=== PATIENT | female | born 1935 | race Caucasian/White ===

== ENCOUNTER 2017-08-10 12:44 | Inpatient (IN) ==
--- NOTE | 2017-08-10 12:51 | Emergency Department Note ---
Disposition Clinical Impression: Diverticulitis Disposition: Admitted As Inpatient Condition: Fair Referrals: Isabell Dillard MD [Primary Care Provider] - Forms: ED Satisfaction Letter, Work/School Release Time of Disposition: 14:42 Abdominal Pain HPI - General Chief Complaint: ED Abdominal Pain Stated Complaint: "abdominal pain" Time Seen by Provider: 08/10/17 12:45 Source: patient, EMS Mode of arrival: EMS Limitations: no limitations Nursing Notes Reviewed: Yes Vital Signs Reviewed: Yes - History of Present Illness HPI Narrative: 81-year-old who comes in complaining of worsening abdominal pain started according to the patient earlier today. The squad relates the patient fell back on July 27 and was hospitalized here. She's had numbness of her legs since the fall. She states it seems to be getting worse. Pt Subjective Complaint: abdominal pain Onset (ago): Just [employer]IE [employer] Consistency: constant Location: diffuse Pain Severity: moderate Quality: cramping, aching Radiation: none Migration to: no migration Improves with: nothing Worsens with: nothing Associated symptoms: Reports: nausea, other (Tino frequency). Denies: fever, chills Treatments prior to arrival: none - Related Data Home Medications Medication Instructions Recorded Confirmed Acetaminophen [Tylenol] 1,000 - 1,500 mg PO BID 09/11/15 08/10/17 Cholecalciferol (Vitamin D3) 5,000 unit PO QAM 09/11/15 08/10/17 [Vitamin D3] Docusate Sodium [Colace] 100 mg PO BID PRN 09/11/15 08/10/17 Furosemide [Lasix] 40 mg PO QAM 09/11/15 08/10/17 Mesalamine [Apriso] 0.75 gm PO QAM 09/11/15 08/10/17 Omeprazole [PriLOSEC] 20 mg PO QAM 09/11/15 08/10/17 Potassium Chloride [K-Tab ER] 20 meq PO DAILY 05/31/16 08/10/17 TraZODone 50 - 100 mg PO HS 05/31/16 08/10/17 Metoprolol Succinate 25 mg PO DAILY 07/28/17 08/10/17 Previous Rx's Medication Instructions Recorded Lisinopril [Zestril] 40 mg PO DAILY tablet 06/03/16 Rivaroxaban [Xarelto] 20 mg PO 1700 #30 tablet 06/03/16 Amlodipine Besylate 10 mg PO DAILY #30 tablet 07/29/17 Hydralazine HCl 50 mg PO TID #90 tablet 07/29/17 OxyCODONE/APAP 5/325 [Percocet 1 each PO Q8HR PRN tablet 07/29/17 5/325 MG] Allergies Allergy/AdvReac Type Severity Reaction Status Date / Time ampicillin Allergy Hives Verified 08/10/17 15:19 morphine AdvReac Hallucinati Verified 08/10/17 15:19 ng All systems ED: reviewed and negative except as stated. Constitutional: Denies: fever, chills, weakness, weight change Eyes: Denies: eye pain, eye discharge, vision change ENT ED: Denies: ear pain, throat pain, dental pain, hearing loss, epistaxis, congestion, dysphagia Cardiovascular: Denies: chest pain, palpitations, dyspnea on exertion, edema, syncope Respiratory: Denies: cough, dyspnea, wheezes, hemoptysis, stridor Gastrointestinal: Reports: abdominal pain, other (Urinary frequency). Denies: nausea, vomiting, diarrhea, constipation, hematemesis, melena, hematochezia Genitourinary: Denies: dysuria, frequency, hematuria, discharge Musculoskeletal: Denies: back pain, neck pain, arthralgia, myalgia Integumentary: Denies: rash, abrasion, lesions Neurological: Denies: headache, weakness, numbness, paresthesias, confusion, abnormal gait, vertigo Psychiatric: Denies: anxiety, depression, suicidal thoughts, homicidal thoughts , auditory hallucinations, visual hallucinations Endocrine: Denies: fatigue Hematological/Lymphatic: Denies: easy bleeding, easy bruising Allergic/Immunologic: Denies: facial swelling, urticaria Abdominal Pain PMH - Past Medical History Medical history: Reports: atrial fibrillation, diabetes, GERD, hypertension, other Female Surgical History: Reports: appendectomy, hysterectomy, Tonsillectomy Psychiatric history: Reports: anxiety - Social History Smoking status: Former smoker Alcohol use: Reports: none Drug use: Reports: none Physical Exam - General Limitations: no limitations General appearance: alert, in no apparent distress - Head Head exam: atraumatic, normocephalic, normal inspection - Eye Eye exam: Present: normal appearance, PERRL, EOMI - ENT ENT exam: normal exam, normal oropharynx, mucous membranes moist - Neck Neck exam: Present: normal inspection, full ROM, trachea midline - Chest Chest inspection: Present: normal inspection, symmetric chest wall rise - Respiratory Respiratory exam: Present: normal lung sounds bilaterally - Cardiovascular Cardiovascular exam: Present: regular rate, normal rhythm, normal heart sounds - Abdominal Exam Abdominal exam: Present: soft, tenderness. Absent: distention, guarding, rebound, rigidity - Extremities Exam Extremities exam: Present: normal inspection, full ROM. Absent: tenderness, pedal edema - Expanded Lower Extremity Exam Neurovascular/Tendon exam: Absent: motor deficit, sensory deficit, tendon deficit Gait: not tested/not observed - Back Exam Back exam: Present: normal inspection, full ROM. Absent: tenderness - Neurological Exam Neurological exam: Present: alert, oriented X3 - Psychiatric Psychiatric exam: Present: normal affect, normal mood - Skin Skin exam: Present: warm, dry, intact, normal color Course - Reevaluation(s) Reevaluation #1: 81-year-old who comes in complaining of abdominal pain. She is tender in the abdomen without guarding or rebound. CT scan does show acute diverticulitis. Time: 15:36 - Consultations Consultation #1: Discussed with Dr. San, admit. Time: 15:36 Vital Signs Temperature 97.6 F 08/10/17 12:46 Pulse Rate 97 08/10/17 12:46 Respiratory Rate 20 08/10/17 12:46 Blood Pressure 138/102 08/10/17 12:46 O2 Sat by Pulse Oximetry 96 08/10/17 12:46 Temperature 97.6 F 08/10/17 12:46 Pulse Rate 86 08/10/17 13:45 Respiratory Rate 18 08/10/17 13:45 Blood Pressure 158/91 08/10/17 13:45 O2 Sat by Pulse Oximetry 95 08/10/17 13:45 Oxygen Delivery Oxygen Delivery Room Air Abdominal Pain - Lab Data Lab results reviewed: Yes I reviewed the patient's lab results. Result diagrams: 08/10/17 13:58 08/10/17 13:58 Lab Results 08/10/17 08/10/17 08/10/17 Range/Units 12:54 13:58 13:58 WBC 10.6 (4.3-11.1) K/mcL RBC 3.97 (3.82-4.97) M/mcL Hgb 12.0 (11.5-15.4) g/dL Hct 37.2 (35.3-44.9) % MCV 93.7 (83.0-100.0) fL MCH 30.2 (28.0-33.3) pg MCHC 32.3 (31.6-35.5) g/dL RDW 14.1 (11.5-14.5) % Plt Count 322 (140-400) K/mcL MPV 9.5 (9.4-12.4) fL Immature Gran % 0.4 (0-4) % Seg Neutrophils % 81.0 % Lymphocytes % 11.4 % Monocytes % 6.5 % Eosinophils % 0.1 % Basophils % 0.6 % Neutrophils # 8.6 (1.6-8.9) K/mcL Lymphocytes # 1.2 (0.6-4.6) K/mcL Monocytes # 0.7 (0.0-1.3) K/mcL Eosinophils # 0.0 (0.0-0.6) K/mcL Basophils # 0.1 (0.0-0.2) K/mcL Sodium 140 (136-145) mEq/L Potassium 3.8 (3.5-4.5) mEq/L Chloride 104 (98-109) mEq/L Carbon Dioxide 23 (19-29) mEq/L BUN 21 H (7-20) mg/dL Creatinine 1.28 H (0.57-1.11) mg/dL Est GFR ( Amer) 49 L (> 60) Est GFR (Non-Af Amer) 40 L (> 60) BUN/Creatinine Ratio 16 (6-26) Glucose 139 H (70-99) mg/dL Calculated Osmolality 295 (280-300) Lactic Acid (0.5-2.2) mmol/L Calcium 9.7 (8.6-10.8) mg/dL Total Bilirubin 0.8 (0.2-1.2) mg/dL Direct Bilirubin 0.3 (0.0-0.5) mg/dL Indirect Bilirubin 0.5 (0.0-1.2) mg/dL AST 16 (5-34) Units/L ALT 9 (0-55) Units/L Alkaline Phosphatase 76 (38-126) Units/L Troponin I (0-0.03) ng/mL Serum Total Protein 8.1 (6.0-8.3) g/dL Albumin 3.7 (3.5-5.0) g/dL Globulin 4.4 H (2.4-3.5) g/dL Albumin/Globulin Ratio 0.8 L (1.1-2.2) Amylase 74 (25-125) Units/L Lipase 71 (8-78) Units/L Urine Color Yellow (Yellow) Urine Clarity Clear (Clear) Urine pH 6.5 (5.0-8.0) pH Units Ur Specific [place] 1.013 (1.010-1.025) Urine Protein 30 H (Neg-Trace) mg/dL Urine Glucose (UA) Normal (Normal) mg/dL Urine Ketones Negative (Negative) mg/dL Urine Blood Negative (Negative) Urine Nitrite Negative (Negative) Urine Bilirubin Negative (Negative) Urine Urobilinogen Normal (Normal) mg/dL Ur Leukocyte Esterase Negative (Negative) Urine Microscopic RBC 0-3 (0-3) per hpf Urine Microscopic WBC 0-3 (0-3) per hpf Ur Squamous Epith Cells Many H (None-Few) per lpf Urine Bacteria None Seen (None-Few) per hpf Hyaline Casts None Seen (None-Few) per lpf Ur Culture Indicated? NO (NO) 08/10/17 08/10/17 Range/Units 13:58 13:58 WBC (4.3-11.1) K/mcL RBC (3.82-4.97) M/mcL Hgb (11.5-15.4) g/dL Hct (35.3-44.9) % MCV (83.0-100.0) fL MCH (28.0-33.3) pg MCHC (31.6-35.5) g/dL RDW (11.5-14.5) % Plt Count (140-400) K/mcL MPV (9.4-12.4) fL Immature Gran % (0-4) % Seg Neutrophils % % Lymphocytes % % Monocytes % % Eosinophils % % Basophils % % Neutrophils # (1.6-8.9) K/mcL Lymphocytes # (0.6-4.6) K/mcL Monocytes # (0.0-1.3) K/mcL Eosinophils # (0.0-0.6) K/mcL Basophils # (0.0-0.2) K/mcL Sodium (136-145) mEq/L Potassium (3.5-4.5) mEq/L Chloride (98-109) mEq/L Carbon Dioxide (19-29) mEq/L BUN (7-20) mg/dL Creatinine (0.57-1.11) mg/dL Est GFR ( Amer) (> 60) Est GFR (Non-Af Amer) (> 60) BUN/Creatinine Ratio (6-26) Glucose (70-99) mg/dL Calculated Osmolality (280-300) Lactic Acid 1.9 (0.5-2.2) mmol/L Calcium (8.6-10.8) mg/dL Total Bilirubin (0.2-1.2) mg/dL Direct Bilirubin (0.0-0.5) mg/dL Indirect Bilirubin (0.0-1.2) mg/dL AST (5-34) Units/L ALT (0-55) Units/L Alkaline Phosphatase (38-126) Units/L Troponin I 0.02 (0-0.03) ng/mL Serum Total Protein (6.0-8.3) g/dL Albumin (3.5-5.0) g/dL Globulin (2.4-3.5) g/dL Albumin/Globulin Ratio (1.1-2.2) Amylase (25-125) Units/L Lipase (8-78) Units/L Urine Color (Yellow) Urine Clarity (Clear) Urine pH (5.0-8.0) pH Units Ur Specific [place] (1.010-1.025) Urine Protein (Neg-Trace) mg/dL Urine Glucose (UA) (Normal) mg/dL Urine Ketones (Negative) mg/dL Urine Blood (Negative) Urine Nitrite (Negative) Urine Bilirubin (Negative) Urine Urobilinogen (Normal) mg/dL Ur Leukocyte Esterase (Negative) Urine Microscopic RBC (0-3) per hpf Urine Microscopic WBC (0-3) per hpf Ur Squamous Epith Cells (None-Few) per lpf Urine Bacteria (None-Few) per hpf Hyaline Casts (None-Few) per lpf Ur Culture Indicated? (NO) - Radiology Data Radiology results reviewed: Yes I reviewed the patient's radiology results. Abdomen/Pelvis CT 08/10/17 12:46 IMPRESSION: 1. Acute diverticulitis in the distal sigmoid colon. Severe inflammation, but no evidence of perforation or abscess. 2. Complex cystic lesion stable at the lower pole of the left kidney. Correlation with prior urology workup is recommended. 3. Partial visualization of a pulmonary nodule in the right middle lobe stable since 2016. Correlate with prior pulmonary workup. 4. Large hiatal hernia. D/ / Keaton Mckee MD / Keaton Mckee MD Interpreting Provider: Keaton Mckee MD - EKG Data EKG attestation: Yes I reviewed and interpreted this EKG. Rate: normal Rhythm: A.Fib When compared to previous EKG there are: no significant changes (07/27/2017) Interpretation: no acute changes
[2017-08-10 13:01] LABS: Bilirubin,Urine Negative (Negative); Blood,Urine Negative (Negative); Clarity,Urine Clear (Clear); Color,Urine Yellow (Yellow); Glucose,Urine (UA) Normal (Normal); Ketones,Urine Negative (Negative); Leukocyte Esterase,Urine Negative (Negative); Nitrite,Urine Negative (Negative); PH,Urine 6.5 pH Units (5.0-8.0); Protein,Urine 30 mg/dL (Neg-Trace); Specific Gravity,Urine 1.013 (1.010-1.025); Urobilinogen,Urine Normal (Normal)
[2017-08-10 13:04] LABS: Bacteria,Urine None Seen per hpf (None-Few); Hyaline Casts,Urine None Seen per lpf (None-Few); RBC,Urine 0-3 per hpf (0-3); Squamous Epithelial Cell,Urine Many per lpf (None-Few); WBC,Urine 0-3 per hpf (0-3)
[2017-08-10 14:11] LABS: Basophils # 0.1 K/mcL (0.0-0.2); Basophils % 0.6 %; Eosinophils % 0.1 %; Hematocrit 37.2 % (35.3-44.9); Immature Granulocytes % 0.4 % (0-4); Lymphocytes # 1.2 K/mcL (0.6-4.6); Lymphocytes % 11.4 %; Mean Corpuscular HGB Conc 32.3 g/dL (31.6-35.5); Mean Corpuscular Hemoglobin 30.2 pg (28.0-33.3); Mean Corpuscular Volume 93.7 fL (83.0-100.0); Mean Platelet Volume 9.5 fL (9.4-12.4); Monocytes # 0.7 K/mcL (0.0-1.3); Monocytes % 6.5 %; Neutrophils # 8.6 K/mcL (1.6-8.9); Platelet Count 322 K/mcL (140-400); Red Blood Count 3.97 M/mcL (3.82-4.97); Red Cell Distribution Width 14.1 % (11.5-14.5)
[2017-08-10 14:25] LABS: Albumin 3.7 g/dL (3.5-5.0); Albumin/Globulin Ratio 0.8 (1.1-2.2); Bilirubin,Direct 0.3 mg/dL (0.0-0.5); Bilirubin,Indirect 0.5 mg/dL (0.0-1.2); Bilirubin,Total 0.8 mg/dL (0.2-1.2); Calcium 9.7 mg/dL (8.6-10.8); Globulin 4.4 g/dL (2.4-3.5); Potassium 3.8 mEq/L (3.5-4.5); Total Protein 8.1 g/dL (6.0-8.3)
[2017-08-10] MEDS ORDERED: MetroNIDAZOLE 500 MG/100 ML 500 MG/100 ML BAG IVPB ONE (14:42)
[2017-08-10] MEDS ORDERED: *HR* Rivaroxaban 10 MG TABLET PO SCH (17:00)
[2017-08-10] MEDS ORDERED: Naloxone 0.4 MG/ML INJ IVP PRN (19:04)
[2017-08-10] MEDS ORDERED: Ondansetron 4 MG/2 ML VIAL IVP PRN (19:04)
[2017-08-10] MEDS ORDERED: *HR* OxyCODONE/APAP 5/325 TABLET PO PRN (19:10)
--- NOTE | 2017-08-10 19:18 | Internal Med History&Physical ---
<Aman Garcia - Last Filed: 08/10/17 22:12> Date of Encounter: 08/10/17 Time of Encounter: 19:16 Assessment and Plan (1) Diverticulitis Current visit: Yes Status: Acute Continues to have abdominal pain. She does not appear toxic and does not appear to have an acute abdomen to examination. CT abdomen and pelvis reveals acute diverticulitis of distal sigmoid colon without evidence of abscess or perforation. Start antibiotic therapy; Flagyl and ciprofloxacin 0.9% NS at 100ml/hr x2 liters Will give Percocet for pain management Check CBC, CMP in the morning (2) Ulcerative colitis Current visit: Yes Status: Chronic Qualifiers: Ulcerative colitis location: unspecified ulcerative colitis location Digestive disease complication type: unspecified complication Qualified Code(s ): K51.919 - Ulcerative colitis, unspecified with unspecified complications (3) HTN (hypertension) Current visit: Yes Status: Chronic Remains hypertensive with blood pressure in the 150s. Restart beta susie and CORY inhibitor. Continue to monitor, and IV metoprolol 5 mg for sustained SBP greater than 160 hold for HR < 75 Qualifiers: Hypertension type: essential hypertension Qualified Code(s): I10 - Essential (primary) hypertension (4) Diabetes Current visit: Yes Status: Chronic Low sliding Scale insulin coverage with AH/HS Accu-Cheks and diabetic/cardiac diet Qualifiers: Diabetes mellitus type: type 2 Diabetes mellitus complication status: with kidney complications Diabetes mellitus complication detail: with chronic kidney disease Diabetes mellitus senior living insulin use: without senior living use Chronic kidney disease stage: stage 3 (moderate) Qualified Code(s): E11.22 - Type 2 diabetes mellitus with diabetic chronic kidney disease; N18.3 - Chronic kidney disease, stage 3 (moderate); N18.3 - Chronic kidney disease, stage 3 (moderate) (5) Atrial fibrillation Current visit: Yes Status: Acute Continue Xarelto and beta susie. Remains in atrial fibrillation per EKG, hemodynamically stable and in no distress. Qualifiers: Atrial fibrillation type: unspecified Qualified Code(s): I48.91 - Unspecified atrial fibrillation (6) DVT prophylaxis Current visit: Yes Status: Acute On Xarelto, start EPCD's while in bed. Internal Medicine - H&P: HPI Chief complaint: Abdominal pain Admitted From: Home Plans for Post Hospital Care: Home History of present illness: Ms. Beltran is a 81 year old female with a PMH of A. fib, DM, GERD, HTN. No prior history of diverticulitis or diverticulosis. Presents today with left lower quadrant abdominal pain which began this morning. She reports the pain this morning was tolerable but his progress as the day has gone on. She denies any fever but admits to chills. Denies chest pain, shortness of breath, cough melena, hematochezia. Admits to nausea but no vomiting and constipation. Last bowel movement was approximately [address] of abdomen and pelvis obtained while in ED and found acute diverticulitis and distal sigmoid colon with severe inflammation but no evidence of perforation or abscess. Past Med Surg Social Fam HX - Past Medical History Medical history: atrial fibrillation, diabetes, GERD, hypertension, other Psychiatric history: anxiety - Past Surgical History Surgical History: appendectomy, hysterectomy, ALAN/BSO - Social History Smoking Status: Former smoker Smokeless Tobacco Status: No Alcohol use: none Drug use: none - Family History Mother Living Status: Hx Family Cardiac Disorders: Yes Hx Family Respiratory Disorders: No Hx Family Cancer: No Hx Family GI Disorders: No Hx Family Endocrine Disorder: Yes Hx Family Neuromuscular Disorders: No Hx Family Neurologic Disorders: No Hx Family HEENT Disorders: No Hx Family Autoimmune Disorders: No Father Living Status: Hx Family Cardiac Disorders: Yes Hx Family Respiratory Disorders: No Hx Family Cancer: No Hx Family GI Disorders: No Hx Family Endocrine Disorder: No Hx Family Neuromuscular Disorders: No Hx Family Neurologic Disorders: No Hx Family HEENT Disorders: No Hx Family Autoimmune Disorders: No Internal Medicine - H&P: Meds Acetaminophen [Tylenol] 1,000 - 1,500 mg PO BID 09/11/15 [History] Cholecalciferol (Vitamin D3) [Vitamin D3] 5,000 unit PO QAM 09/11/15 [History] Docusate Sodium [Colace] 100 mg PO BID PRN 09/11/15 [History] Furosemide [Lasix] 40 mg PO QAM 09/11/15 [History] Mesalamine [Apriso] 0.75 gm PO QAM 09/11/15 [History] Omeprazole [PriLOSEC] 20 mg PO QAM 09/11/15 [History] Potassium Chloride [K-Tab ER] 20 meq PO DAILY 05/31/16 [History] TraZODone 50 - 100 mg PO HS 05/31/16 [History] Lisinopril [Zestril] 40 mg PO DAILY tablet 06/03/16 [Rx] Rivaroxaban [Xarelto] 20 mg PO 1700 #30 tablet 06/03/16 [Rx] Metoprolol Succinate 25 mg PO DAILY 07/28/17 [History] Amlodipine Besylate 10 mg PO DAILY #30 tablet 07/29/17 [Rx] Hydralazine HCl 50 mg PO TID #90 tablet 07/29/17 [Rx] OxyCODONE/APAP 5/325 [Percocet 5/325 MG] 1 each PO Q8HR PRN tablet 07/29/17 [Rx ] 3 Allergy/AdvReac Type Severity Reaction Status Date / Time ampicillin Allergy Hives Verified 08/10/17 15:19 morphine AdvReac Hallucinati Verified 08/10/17 15:19 ng All Systems PM: A 10-system review of systems was performed and is negative for pertinent findings except as documented above in the HPI. - Constitutional Constitutional: no chills, no fever(s), no night sweats - EENT Eyes: no change in vision, no discharge, no pain, no photophobia Ears: no ear discharge, no ear pain, no tinnitus Nose, mouth and throat: no dysphagia, no nasal discharge, no neck pain, no sore throat - Cardiovascular Cardiovascular ROS IM: no chest pain, no diaphoresis, no dyspnea, no lightheadedness, no palpitations, no syncope - Respiratory Respiratory: no cough, no dyspnea, no wheezing, no excessive phlegm production - Gastrointestinal Gastrointestinal: abdominal pain, constipation, no diarrhea, no hematemesis, no hematochezia, no melena, no nausea, no vomiting - Genitourinary Genitourinary: no change in urinary stream, no dysuria, no flank pain, no hematuria - Musculoskeletal Musculoskeletal ROS IM: no numbness, no tingling - Integumentary Integumentary IM: no rash, no unusual bruising - Neurological Neurological ROS: no confusion, no convulsions, no focal weakness, no numbness, no tingling, no tremor(s) - Hematologic/Lymphatic Hematologic/Lymphatic: no easy bruising - Constitutional Vitals: Temp Pulse Resp BP Pulse Ox 97.6 F 76 15 159/88 96 08/10/17 12:46 08/10/17 17:00 08/10/17 17:26 08/10/17 17:26 08/10/17 17:00 General appearance: Present: cooperative, A&O X 3, no acute distress, answers questions appropriately - Head Head exam: Present: atraumatic, normocephalic - Eye Eye exam: Present: PERRL, conjuntiva pink, sclera anicteric Pupils: Present: PERRL - Neck Neck exam general surgery: Present: supple, trachea midline. Absent: lymphadenopathy - Respiratory Respiratory exam: Present: CTAB. Absent: accessory muscle use, rales, rhonchi, wheezes - Cardiovascular Cardiovascular exam: Present: RRR, +S1, +S2. Absent: diastolic murmur, gallop, rubs, systolic murmur - GI/Abdominal GI/Abdominal exam: Present: hypoactive bowel sounds, normal bowel sounds, soft, tenderness (LLQ), no peritoneal signs. Absent: distended, firm, guarding, mass , rebound - Extremities Exam Extremities exam: Present: warm, radial pulses palpable and symmetrical. Absent : calf tenderness, cyanotic, pedal edema - Neurological Exam Neurological exam: Present: CN II-XII intact, oriented X3, no focal deficits. Absent: pronater drift, facial droop, speech deficit - Skin Skin exam: Present: dry, intact Internal Med - H&P Results - Labs CBC & Chem 7: 08/10/17 13:58 08/10/17 13:58 - EKG Data -: EKG Interpreted by Myself - EKG Data Prior EKG available for review: yes When compared to previous EKG: there is no significant change EKG comments: Atrial fibrillationsignificant changes from prior EKG rate control. 08/10/17 19:20 - Diagnostic Studies CT scan - abdomen Status: image reviewed by me Additional comments: CT of abdomen and pelvis reveals acute diverticulitis and distal sigmoid colon with severe inflammation. However there is no evidence of perforation or abscess. Also note there is a complex cystic lesion that is stable at the lower pole of left kidney <Darrel Oneill - Last Filed: 08/11/17 01:55> Date of Encounter: 08/11/17 Internal Medicine - H&P: HPI History of present illness: Ms. Beltran is a 81 year old female All Systems PM: A 10-system review of systems was performed and is negative for pertinent findings except as documented above in the HPI. - Constitutional Vitals: Temp Pulse Resp BP Pulse Ox 98.1 F 75 14 108/66 92 08/10/17 23:52 08/10/17 23:52 08/10/17 23:52 08/10/17 23:52 08/10/17 23:52 Internal Med - H&P Results - Labs CBC & Chem 7: 08/10/17 13:58 08/10/17 13:58 - Attending Attestation I have personally performed a face to face evaluation on this patient. I have reviewed and agree with the care plan provided by MANUFACTURING COORDINATOR Aman Garcia. History and Exam by me shows: Ms. Beltran is a 81 year old female with a PMH of A. fib, DM, GERD, HTN presented to ER today with left lower quadrant abdominal pain. Admits to nausea but no vomiting and constipation. Last bowel movement was approximately [address] of abdomen and pelvis in the ED showed acute diverticulitis and distal sigmoid colon with severe inflammation but no evidence of perforation or abscess. Pt stated she is feeling little better now Gen: A, A, O x 3 Abd: Soft, Mild discomfort LLQ region.. No guarding / no peritoneal signs a/p 1. Acute sigmoid diverticulitis clear liquid diet IV hydration empirical abx Cipro and Flagyl
[2017-08-10] MEDS ORDERED: *HR* Metoprolol 5 MG/5 ML VIAL IVP PRN (19:23)
[2017-08-10] MEDS ORDERED: Dextrose Gel 15 GM PO PRN ×2 (19:25)
[2017-08-10] MEDS ORDERED: D5% in Water 1,000 ML IVC PRN (19:25)
[2017-08-10] MEDS ORDERED: *HR* Dextrose 50 % in Water (Syg) 50 ML SYRINGE IVP PRN (19:25)
[2017-08-10] MEDS: Insulin LISPRO 300 UNITS/3 ML VIAL SQ SCH (22:06)
[2017-08-10] MEDS: hydrALAZINE 25 MG TABLET PO SCH (22:10)
[2017-08-10] MEDS: traZODone 50 MG TABLET PO SCH (22:10)
[2017-08-10] MEDS: 0.9 % Sodium Chloride 1,000 ML IVC SCH (22:11)
[2017-08-11] MEDS: MetroNIDAZOLE 500 MG/100 ML 500 MG/100 ML BAG IVPB SCH ×3 (00:38→15:03)
[2017-08-11 05:44] LABS: Basophils # 0.1 K/mcL (0.0-0.2); Basophils % 0.8 %; Eosinophils # 0.1 K/mcL (0.0-0.6); Eosinophils % 1.4 %; Hematocrit 31.3 % (35.3-44.9); Immature Granulocytes % 0.5 % (0-4); Lymphocytes # 0.8 K/mcL (0.6-4.6); Lymphocytes % 11.9 %; Mean Corpuscular HGB Conc 31.6 g/dL (31.6-35.5); Mean Corpuscular Hemoglobin 30.5 pg (28.0-33.3); Mean Corpuscular Volume 96.3 fL (83.0-100.0); Mean Platelet Volume 9.6 fL (9.4-12.4); Monocytes # 0.7 K/mcL (0.0-1.3); Monocytes % 10.1 %; Platelet Count 271 K/mcL (140-400); Red Blood Count 3.25 M/mcL (3.82-4.97); Segmented Neutrophils % 75.3 %
[2017-08-11 05:47] LABS: Hemoglobin 9.9 g/dL (11.5-15.4)
[2017-08-11 05:57] LABS: Calcium 8.7 mg/dL (8.6-10.8); Potassium 3.5 mEq/L (3.5-4.5)
[2017-08-11] MEDS: Insulin LISPRO 300 UNITS/3 ML VIAL SQ SCH ×4 (08:24→20:17)
[2017-08-11] MEDS: MESALAMINE 0.75 GM PO SCH (08:25)
[2017-08-11] MEDS: Lisinopril 20 MG TABLET PO SCH (08:25)
[2017-08-11] MEDS: hydrALAZINE 25 MG TABLET PO SCH ×3 (08:25→20:14)
[2017-08-11] MEDS: amLODIPine 5 MG TABLET PO SCH (08:25)
[2017-08-11] MEDS: Metoprolol XL (24 HR) Succ 25 MG TAB.ER.24H PO SCH (08:25)
[2017-08-11] MEDS ORDERED: Furosemide 40 MG TABLET PO SCH (09:00)
--- NOTE | 2017-08-11 09:23 | Internal Med Progress Note ---
Date of Encounter: 08/11/17 Time of Encounter: 09:21 - Assessment and plan (1) Diverticulitis Current Visit: Yes Status: Acute Assessment and plan: Patient presented with left lower quadrant abdominal pain. CT abdomen/pelvis showed sigmoid diverticulitis. Continue empiric IV antibiotics-ciprofloxacin and Flagyl. Reports worsening abdominal pain with clear liquid diet. Keep nothing by mouth for now. Continue IV hydration, supportive care with when necessary antiemetics and pain control with IV morphine. (2) CKD (chronic kidney disease) Current Visit: Yes Status: Chronic Assessment and plan: Serum creatinine noted to be around baseline. Continue to monitor closely. Qualifiers: Chronic kidney disease stage: stage 3 (moderate) Qualified Code(s): N18.3 - Chronic kidney disease, stage 3 (moderate) (3) HTN (hypertension) Current Visit: Yes Status: Chronic Assessment and plan: Blood pressure well controlled. Continue home medications. Qualifiers: Hypertension type: essential hypertension Qualified Code(s): I10 - Essential (primary) hypertension (4) Diabetes Current Visit: Yes Status: Chronic Assessment and plan: Blood sugars noted to be well controlled. Continue Accu-Chek blood glucose monitoring with sliding scale insulin as needed. Qualifiers: Diabetes mellitus type: type 2 Diabetes mellitus complication status: with kidney complications Diabetes mellitus complication detail: with chronic kidney disease Diabetes mellitus local company intermodal truck driver insulin use: without local company intermodal truck driver use Chronic kidney disease stage: stage 3 (moderate) Qualified Code(s): E11.22 - Type 2 diabetes mellitus with diabetic chronic kidney disease; N18.3 - Chronic kidney disease, stage 3 (moderate); N18.3 - Chronic kidney disease, stage 3 (moderate) (5) Ulcerative colitis Current Visit: Yes Status: Chronic Qualifiers: Ulcerative colitis location: unspecified ulcerative colitis location Digestive disease complication type: unspecified complication Qualified Code(s ): K51.919 - Ulcerative colitis, unspecified with unspecified complications (6) Atrial fibrillation Current Visit: Yes Status: Chronic Assessment and plan: Currently rate controlled. Continue telemetry monitoring. Noted to be on long-term anticoagulation with Xarelto, continue. Qualifiers: Atrial fibrillation type: paroxysmal Qualified Code(s): I48.0 - Paroxysmal atrial fibrillation - Subjective Interval history: Improved abdominal pain, but pain is now back as she tried to have clear broth, associated with nausea; no vomiting; has not had a bowel movement since 5 days; no fever/chills, has left lower abdominal pain, nonradiating; - Constitutional Vitals: Temp Pulse Resp BP Pulse Ox 97.8 F 65 16 145/71 93 08/11/17 08:08 08/11/17 08:08 08/11/17 08:08 08/11/17 08:08 08/11/17 08:08 General appearance: Present: cooperative, A&O X 3, no acute distress, answers questions appropriately - Respiratory Respiratory exam: Present: CTAB. Absent: accessory muscle use, rales, rhonchi, wheezes - Cardiovascular Cardiovascular exam: Present: irregular rhythm, +S1, +S2. Absent: diastolic murmur, gallop, rubs, systolic murmur - GI/Abdominal GI/Abdominal exam: Present: normal bowel sounds, soft (tenderness in LLQ), no peritoneal signs. Absent: distended, tenderness - Extremities Exam Extremities exam: Present: warm, radial pulses palpable and symmetrical. Absent : calf tenderness, cyanotic, pedal edema - Neurological Exam Neurological exam: Present: CN II-XII intact, oriented X3, no focal deficits. Absent: pronater drift, facial droop, speech deficit Internal Medicine: Result - Labs CBC & Chem 7: 08/11/17 05:01 08/11/17 05:01 Labs: Short CBC 08/11/17 Range/Units 05:01 WBC 6.6 (4.3-11.1) K/mcL Hgb 9.9 L D (11.5-15.4) g/dL Hct 31.3 L (35.3-44.9) % Plt Count 271 (140-400) K/mcL Neutrophils # 5.0 (1.6-8.9) K/mcL BMP 08/11/17 05:01 Sodium 141 Potassium 3.5 Chloride 107 Carbon Dioxide 23 BUN 20 Creatinine 1.21 H Glucose 128 H Calcium 8.7 - VTE Documentation of Mechanical Device: Intermittent pneumatic compression device Consult Discharge Plan - Plan Referrals: Isabell Dillard MD [Primary Care Provider] -
[2017-08-11] MEDS: 0.9 % Sodium Chloride 1,000 ML IVC SCH ×2 (10:55→14:46)
--- NOTE | 2017-08-11 17:13 | Electrocardiograph Report ---
[place] [id number] Test Date: 2017-08-10 Pat Name: Jaye Beltran Department: 103 Room: 3A31 Gender: F Outreach Coordinator: SHAWANDA : 1935 Requested By: Alpesh Jose Order Number: [id number] Reading MD: Jessica Hernandez Measurements Intervals [place] Rate: 96 P: DE: 0 QRS: 23 QRSD: 74 T: -20 QT: 365 QTc: 419 Interpretive Statements ATRIAL FIBRILLATION POSSIBLE RIGHT VENTRICULAR CONDUCTION DELAY [RSR (QR) IN V1/V2] NONSPECIFIC ST & T-WAVE ABNORMALITY ABNORMAL RHYTHM ECG ARTIFACT Electronically Signed On 08-11-2017 17:12:08 EST by Jessica Hernandez
[2017-08-11] MEDS: *HR* Rivaroxaban 15 MG TABLET PO SCH (17:15)
[2017-08-11] MEDS: traZODone 50 MG TABLET PO SCH (20:14)
[2017-08-12 04:41] LABS: Basophils # 0.1 K/mcL (0.0-0.2); Basophils % 1.7 %; Eosinophils # 0.2 K/mcL (0.0-0.6); Eosinophils % 3.1 %; Hematocrit 33.3 % (35.3-44.9); Hemoglobin 10.5 g/dL (11.5-15.4); Immature Granulocytes % 0.4 % (0-4); Lymphocytes # 1.1 K/mcL (0.6-4.6); Lymphocytes % 20.1 %; Mean Corpuscular HGB Conc 31.5 g/dL (31.6-35.5); Mean Corpuscular Hemoglobin 30.1 pg (28.0-33.3); Mean Corpuscular Volume 95.4 fL (83.0-100.0); Mean Platelet Volume 9.4 fL (9.4-12.4); Monocytes # 0.5 K/mcL (0.0-1.3); Monocytes % 9.6 %; Neutrophils # 3.4 K/mcL (1.6-8.9); Platelet Count 279 K/mcL (140-400); Red Blood Count 3.49 M/mcL (3.82-4.97); Red Cell Distribution Width 13.9 % (11.5-14.5); Segmented Neutrophils % 65.1 %
[2017-08-12 04:55] LABS: Calcium 9.1 mg/dL (8.6-10.8)
[2017-08-12] MEDS: Metoprolol XL (24 HR) Succ 25 MG TAB.ER.24H PO SCH (08:59)
[2017-08-12] MEDS: amLODIPine 5 MG TABLET PO SCH (09:00)
[2017-08-12] MEDS: Lisinopril 20 MG TABLET PO SCH (09:00)
[2017-08-12] MEDS: MetroNIDAZOLE 500 MG/100 ML 500 MG/100 ML BAG IVPB SCH ×3 (09:01→15:38)
[2017-08-12] MEDS: Insulin LISPRO 300 UNITS/3 ML VIAL SQ SCH ×4 (09:03→20:08)
[2017-08-12] MEDS: hydrALAZINE 25 MG TABLET PO SCH ×3 (09:03→20:08)
--- NOTE | 2017-08-12 12:44 | Internal Med Progress Note ---
Date of Encounter: 08/12/17 Time of Encounter: 12:43 - Assessment and plan (1) Diverticulitis Current Visit: Yes Status: Acute Assessment and plan: Patient presented with left lower quadrant abdominal pain. CT abdomen/pelvis showed sigmoid diverticulitis. Continue empiric IV antibiotics-ciprofloxacin and Flagyl. Improving. Advance diet as tolerated. Continue IV hydration, supportive care with when necessary antiemetics and pain control with IV morphine. (2) CKD (chronic kidney disease) Current Visit: Yes Status: Chronic Assessment and plan: Serum creatinine noted to be around baseline. Continue to monitor closely. Qualifiers: Chronic kidney disease stage: stage 3 (moderate) Qualified Code(s): N18.3 - Chronic kidney disease, stage 3 (moderate) (3) HTN (hypertension) Current Visit: Yes Status: Chronic Assessment and plan: Blood pressure well controlled. Continue home medications. Qualifiers: Hypertension type: essential hypertension Qualified Code(s): I10 - Essential (primary) hypertension (4) Diabetes Current Visit: Yes Status: Chronic Assessment and plan: Blood sugars noted to be well controlled. Continue Accu-Chek blood glucose monitoring with sliding scale insulin as needed. Qualifiers: Diabetes mellitus type: type 2 Diabetes mellitus complication status: with kidney complications Diabetes mellitus complication detail: with chronic kidney disease Diabetes mellitus penitentiary insulin use: without ferry terminal agent use Chronic kidney disease stage: stage 3 (moderate) Qualified Code(s): E11.22 - Type 2 diabetes mellitus with diabetic chronic kidney disease; N18.3 - Chronic kidney disease, stage 3 (moderate); N18.3 - Chronic kidney disease, stage 3 (moderate) (5) Ulcerative colitis Current Visit: Yes Status: Chronic Qualifiers: Ulcerative colitis location: unspecified ulcerative colitis location Digestive disease complication type: unspecified complication Qualified Code(s ): K51.919 - Ulcerative colitis, unspecified with unspecified complications (6) Atrial fibrillation Current Visit: Yes Status: Chronic Assessment and plan: Currently rate controlled. Continue telemetry monitoring. Noted to be on ferry terminal agent anticoagulation with Xarelto, continue. Qualifiers: Atrial fibrillation type: paroxysmal Qualified Code(s): I48.0 - Paroxysmal atrial fibrillation - Subjective Interval history: Feels better; improved abdominal pain, tolerates clear liquids; no nausea, vomiting; no bowel movements yet; - Constitutional Vitals: Temp Pulse Resp BP Pulse Ox 97.9 F 67 15 129/71 95 12/16/17 10:50 08/12/17 11:23 08/12/17 11:23 08/12/17 11:23 08/12/17 11:23 General appearance: Present: cooperative, A&O X 3, no acute distress, answers questions appropriately - Respiratory Respiratory exam: Present: CTAB. Absent: accessory muscle use, rales, rhonchi, wheezes - Cardiovascular Cardiovascular exam: Present: irregular rhythm, +S1, +S2. Absent: diastolic murmur, gallop, rubs, systolic murmur - GI/Abdominal GI/Abdominal exam: Present: normal bowel sounds, soft, no peritoneal signs. Absent: distended, tenderness Internal Medicine: Result - Labs CBC & Chem 7: 08/12/17 04:29 08/12/17 04:29 Labs: Short CBC 08/12/17 Range/Units 04:29 WBC 5.2 (4.3-11.1) K/mcL Hgb 10.5 L (11.5-15.4) g/dL Hct 33.3 L (35.3-44.9) % Plt Count 279 (140-400) K/mcL Neutrophils # 3.4 (1.6-8.9) K/mcL BMP 08/12/17 04:29 Sodium 140 Potassium 4.0 Chloride 108 Carbon Dioxide 20 BUN 19 Creatinine 1.16 H Glucose 118 H Calcium 9.1 - VTE Documentation of Mechanical Device: Intermittent pneumatic compression device Consult Discharge Plan - Plan Referrals: Isabell Dillard MD [Primary Care Provider] -
[2017-08-12] MEDS: MESALAMINE 0.75 GM PO SCH (14:01)
[2017-08-12] MEDS: *HR* Rivaroxaban 15 MG TABLET PO SCH (18:43)
[2017-08-12] MEDS: traZODone 50 MG TABLET PO SCH (20:08)
[2017-08-13] MEDS: MetroNIDAZOLE 500 MG/100 ML 500 MG/100 ML BAG IVPB SCH ×2 (01:28→08:43)
[2017-08-13] MEDS: Lisinopril 20 MG TABLET PO SCH (08:42)
[2017-08-13] MEDS: MESALAMINE 0.75 GM PO SCH (08:43)
[2017-08-13] MEDS: amLODIPine 5 MG TABLET PO SCH (08:43)
[2017-08-13] MEDS: Metoprolol XL (24 HR) Succ 25 MG TAB.ER.24H PO SCH (08:43)
[2017-08-13] MEDS: hydrALAZINE 25 MG TABLET PO SCH (08:43)
[2017-08-13] MEDS: Insulin LISPRO 300 UNITS/3 ML VIAL SQ SCH (08:44)
[2017-08-13 11:56] VITALS: BP 128/78
--- NOTE | 2017-08-13 13:23 | Discharge Summary ---
Date of Encounter: 08/13/17 Time of Encounter: 13:18 - Discharge Diagnosis (1) Diverticulitis Priority: Primary Status: Acute (2) CKD (chronic kidney disease) Priority: Secondary Status: Chronic Qualifiers: Chronic kidney disease stage: stage 3 (moderate) Qualified Code(s): N18.3 - Chronic kidney disease, stage 3 (moderate) (3) HTN (hypertension) Priority: Secondary Status: Chronic Qualifiers: Hypertension type: essential hypertension Qualified Code(s): I10 - Essential (primary) hypertension (4) Diabetes Priority: Secondary Status: Chronic Qualifiers: Diabetes mellitus type: type 2 Diabetes mellitus complication status: with kidney complications Diabetes mellitus complication detail: with chronic kidney disease Diabetes mellitus terminal press operator insulin use: without longterm use Chronic kidney disease stage: stage 3 (moderate) Qualified Code(s): E11.22 - Type 2 diabetes mellitus with diabetic chronic kidney disease; N18.3 - Chronic kidney disease, stage 3 (moderate); N18.3 - Chronic kidney disease, stage 3 (moderate) (5) Ulcerative colitis Priority: Secondary Status: Chronic Qualifiers: Ulcerative colitis location: unspecified ulcerative colitis location Digestive disease complication type: unspecified complication Qualified Code(s ): K51.919 - Ulcerative colitis, unspecified with unspecified complications (6) Atrial fibrillation Priority: Secondary Status: Chronic Qualifiers: Atrial fibrillation type: paroxysmal Qualified Code(s): I48.0 - Paroxysmal atrial fibrillation - Discharge Medications Prescriptions: Ciprofloxacin HCl [Cipro] 500 mg PO BID #10 tablet metroNIDAZOLE [Flagyl] 500 mg PO TID #15 tablet Rivaroxaban [Xarelto] 15 mg PO 1700 #30 tablet Home Medications: Acetaminophen [Tylenol] 1,000 - 1,500 mg PO BID 09/11/15 [History] Cholecalciferol (Vitamin D3) [Vitamin D3] 5,000 unit PO QAM 09/11/15 [History] Docusate Sodium [Colace] 100 mg PO BID PRN 09/11/15 [History] Furosemide [Lasix] 40 mg PO QAM 09/11/15 [History] Mesalamine [Apriso] 0.75 gm PO QAM 09/11/15 [History] Omeprazole [PriLOSEC] 20 mg PO QAM 09/11/15 [History] Potassium Chloride [K-Tab ER] 20 meq PO DAILY 05/31/16 [History] TraZODone 50 - 100 mg PO HS 05/31/16 [History] Lisinopril [Zestril] 40 mg PO DAILY tablet 06/03/16 [Rx] Metoprolol Succinate 25 mg PO DAILY 07/28/17 [History] Amlodipine Besylate 10 mg PO DAILY #30 tablet 07/29/17 [Rx] Hydralazine HCl 50 mg PO TID #90 tablet 07/29/17 [Rx] OxyCODONE/APAP 5/325 [Percocet 5/325 MG] 1 each PO Q8HR PRN tablet 07/29/17 [Rx ] Ciprofloxacin HCl [Cipro] 500 mg PO BID #10 tablet 08/13/17 [Rx] Rivaroxaban [Xarelto] 15 mg PO 1700 #30 tablet 08/13/17 [Rx] metroNIDAZOLE [Flagyl] 500 mg PO TID #15 tablet 08/13/17 [Rx] Allergies/Adverse Reactions: 3 Allergy/AdvReac Type Severity Reaction Status Date / Time ampicillin Allergy Hives Verified 08/10/17 15:19 morphine AdvReac Hallucinati Verified 08/10/17 15:19 ng Date of admission: 08/10/17 19:04 Primary care physician: Isabell Dillard Consults: 08/11/17 14:13 Consult to Banking Attorney [CONS] Routine Reason for SW Consult: poss need for HH. Lives with daughter 08/11/17 15:30 Consult to Physical Therapy [CONS] Routine Comment: Evaluate, develop and implement POC Reason for Consult: recent fall at home, generalized weakness OT [Consult to Occupational Therapy] [CONS] Routine Comment: Evaluate, develop and implement POC Reason for Consult: recent fall at home, generalized weakness Discharging clinician: Cassia Hess Anticipated date of discharge: 08/13/17 - Patient Status Disposition: Home Health Service Condition: Fair Functional capacity at discharge: independent ambulation Overall status at discharge: patient is progressing back to baseline - Discharge Instructions Instructions: Diverticulitis (DC) Follow Up With: Isabell Dillard MD [Primary Care Provider] - Additional Instructions: F/up with PCP in 1-2 weeks - Diet and Activity Activity: as per physical therapy Diet: diabetic diet, low fat, low cholesterol, low salt diet Hospital course: Ms. Beltran is a 81 year old female with the above medical problems who was admitted with abdominal pain. CT abdomen/pelvis showed distal sigmoid diverticulitis. She was started on bowel rest, IV hydration, IV antibiotics- ciprofloxacin and Flagyl along with when necessary antiemetics and pain control. Patient gradually improved on this regimen and is currently able to tolerate oral diet. She does report constipation and is being discharged on stool softeners and laxatives and she will receive 1 dose of MiraLAX in the hospital prior to discharge. She is otherwise medically stable and is encouraged to follow up with PCP as an outpatient, to schedule possible colonoscopy in 6-8 weeks. - Time Spent with Patient Total time spent providing and/or coordinating discharge services: Greater than 30 minutes (40 min) - Constitutional Vitals: Temp Pulse Resp BP Pulse Ox 97.8 F 82 16 128/78 96 08/13/17 11:54 08/13/17 11:54 08/13/17 11:54 08/13/17 11:54 08/13/17 11:54 General appearance: Present: cooperative, A&O X 3, answers questions appropriately - Cardiovascular Cardiovascular exam: Present: irregular rhythm, +S1, +S2. Absent: diastolic murmur, gallop, rubs, systolic murmur - GI/Abdominal GI/Abdominal exam: Present: normal bowel sounds, soft, no peritoneal signs. Absent: distended, tenderness - VTE Documentation of Mechanical Device: Intermittent pneumatic compression device
--- NOTE | 2017-08-13 13:25 | Physician Discharge Referral ---
Home Health/Hosp Referral Info Transfer to: Home Health Attending Provider: Cassia Hess Provider in Charge Post Discharge: PCP - Diagnosis (1) Diverticulitis Priority: Primary Status: Acute (2) CKD (chronic kidney disease) Priority: Secondary Status: Chronic (3) HTN (hypertension) Priority: Secondary Status: Chronic (4) Diabetes Priority: Secondary Status: Chronic (5) Ulcerative colitis Priority: Secondary Status: Chronic (6) Atrial fibrillation Priority: Secondary Status: Chronic - Respiratory Orders Smoking Cessation: Smoking cessation has been advised. For more information, call the [place] Tobacco Quit Line at [phone]-NOW. - Diet/Nutrition Diet/Nutrition Orders: Renal, Cardiac, No Concentrated Sweets (diabetic) - Activity Activity Orders: Ambulate - Services Needed Following services are medically necessary services: Nursing, Physical Therapy, Occupational Therapy - Transfer Medications Prescriptions: Ciprofloxacin HCl [Cipro] 500 mg PO BID #10 tablet metroNIDAZOLE [Flagyl] 500 mg PO TID #15 tablet Rivaroxaban [Xarelto] 15 mg PO 1700 #30 tablet Home Medications: Acetaminophen [Tylenol] 1,000 - 1,500 mg PO BID 09/11/15 [History] Cholecalciferol (Vitamin D3) [Vitamin D3] 5,000 unit PO QAM 09/11/15 [History] Docusate Sodium [Colace] 100 mg PO BID PRN 09/11/15 [History] Furosemide [Lasix] 40 mg PO QAM 09/11/15 [History] Mesalamine [Apriso] 0.75 gm PO QAM 09/11/15 [History] Omeprazole [PriLOSEC] 20 mg PO QAM 09/11/15 [History] Potassium Chloride [K-Tab ER] 20 meq PO DAILY 05/31/16 [History] TraZODone 50 - 100 mg PO HS 05/31/16 [History] Lisinopril [Zestril] 40 mg PO DAILY tablet 06/03/16 [Rx] Metoprolol Succinate 25 mg PO DAILY 07/28/17 [History] Amlodipine Besylate 10 mg PO DAILY #30 tablet 07/29/17 [Rx] Hydralazine HCl 50 mg PO TID #90 tablet 07/29/17 [Rx] OxyCODONE/APAP 5/325 [Percocet 5/325 MG] 1 each PO Q8HR PRN tablet 07/29/17 [Rx ] Ciprofloxacin HCl [Cipro] 500 mg PO BID #10 tablet 08/13/17 [Rx] Rivaroxaban [Xarelto] 15 mg PO 1700 #30 tablet 08/13/17 [Rx] metroNIDAZOLE [Flagyl] 500 mg PO TID #15 tablet 08/13/17 [Rx] Allergies/Adverse Reactions: 3 Allergy/AdvReac Type Severity Reaction Status Date / Time ampicillin Allergy Hives Verified 08/10/17 15:19 morphine AdvReac Hallucinati Verified 08/10/17 15:19 ng Certification: Further, I certify that my clinical findings support that this patient is homebound (i.e. absences from home require considerable and taxing effort and are for medical reasons or quaker services or infrequently or short duration when for other reasons) because: Homebound Reason: Patient requires assistance of a person or device to safely leave home, Leaving home requires considerable and taxing effort due to condition Attestation: My signature below is to certify that this patient is under my care and that I, or nurse practitioner, or a physician's hotel administrative assistant working with me, has a face-to -face encounter with this patient.
== END 2017-08-13 17:21 | disposition home health service (06) | DRG 392 ==
LOC: 3ANU 12:44 → EMEROO 12:44 → 3ANU 18:00
PROVIDERS: ADMIT Family Medicine; ATTEND Internal Medicine

== ENCOUNTER 2019-02-27 16:49 | Inpatient (IN) ==
[2019-02-27] MEDS ORDERED: Aspirin Enteric Coated 325 MG Tablet PO ONE (22:18)
[2019-02-27] MEDS ORDERED: D5% in Water 1,000 ML IVC PRN (22:28)
[2019-02-27] MEDS ORDERED: Dextrose Gel 15 GM/37.5 ML TUBE PO PRN ×2 (22:28)
[2019-02-27] MEDS ORDERED: *HR* Dextrose 50 % in Water (Syg) 50 ML SYRINGE IVP PRN (22:28)
[2019-02-28] MEDS: Insulin LISPRO 300 UNITS/3 ML VIAL SQ SCH ×4 (00:39→17:27)
[2019-02-28] MEDS ORDERED: Perflutren Lipid Microsphere 1.3 ML in 0.9 % Sodium Chloride 8.7 ML IVP ONE (07:04)
[2019-02-28 08:06] LABS: Hematocrit 36.9 % (35.3-44.9); Hemoglobin 11.5 g/dL (11.5-15.4); Mean Corpuscular HGB Conc 31.2 g/dL (31.6-35.5); Mean Corpuscular Hemoglobin 29.8 pg (28.0-33.3); Mean Corpuscular Volume 95.6 fL (83.0-100.0); Mean Platelet Volume 9.7 fL (9.4-12.4); Platelet Count 272 K/mcL (140-400); Red Blood Count 3.86 M/mcL (3.82-4.97); Red Cell Distribution Width 14.5 % (11.5-14.5); White Blood Count 6.2 K/mcL (4.3-11.1)
[2019-02-28 08:15] LABS: INR 1.2; Prothrombin Time 13.1 Seconds (9.4-12.1)
[2019-02-28 08:18] LABS: Activated Partial Thrombo Time 32.7 Seconds (26.0-36.0)
[2019-02-28 08:36] LABS: Alanine Aminotransferase 10 Units/L (7-52); Albumin 3.9 g/dL (3.5-5.7); Albumin/Globulin Ratio 1.5 (1.1-2.2); Alkaline Phosphatase 63 Units/L (34-104); Aspartate Amino Transferase 13 Units/L (13-39); BUN/Creatinine Ratio 15 (6-26); Bilirubin,Total 0.6 mg/dL (0.3-1.0); Blood Urea Nitrogen 18 mg/dL (8-23); Calcium 9.4 mg/dL (8.6-10.3); Carbon Dioxide 24 mEq/L (23-29); Chloride 104 mEq/L (98-107); Chol/HDL Ratio 4.7 (0-4.9); Cholesterol 203 mg/dL (< 200); Globulin 2.6 g/dL (2.4-3.5); Glucose 121 mg/dL (70-105); HDL Cholesterol 43 mg/dL (40-59); LDL Cholesterol,Calculated 124 mg/dL (0-99); LDL Cholesterol,Direct 136 mg/dL (75-193); Osmolality,Calculated 299 (280-300); Potassium 3.7 mEq/L (3.5-5.1); Sodium 143 mEq/L (136-145); Total Protein 6.5 g/dL (6.4-8.9); Triglycerides 182 mg/dL (< 150); Troponin I < 0.03 ng/mL (< 0.04); eGFR For African Americans 53 (> 60); eGFR For Non-African Americans 43 (> 60)
[2019-02-28] MEDS ORDERED: Metoprolol XL (24 HR) Succ 25 MG TAB.ER.24H PO SCH (09:00)
[2019-02-28] MEDS: Aspirin 81 MG TAB.CHEW PO SCH (09:13)
[2019-02-28] MEDS: Mesalamine 250 MG CAPSULE.ER PO SCH (09:13)
[2019-02-28] MEDS ORDERED: *HR* Rivaroxaban 15 MG TABLET PO SCH ×2 (10:04→17:00)
[2019-02-28] MEDS ORDERED: PARoxetine 20 MG TABLET PO SCH (14:45)
[2019-02-28] MEDS: PARoxetine 20 MG TABLET PO SCH (17:26)
[2019-02-28] MEDS ORDERED: Ondansetron 4 MG/2 ML VIAL IVP PRN (23:12)
[2019-03-01 04:42] LABS: Basophils # 0.1 K/mcL (0.0-0.2); Basophils % 0.9 %; Eosinophils # 0.2 K/mcL (0.0-0.6); Hematocrit 35.9 % (35.3-44.9); Hemoglobin 11.4 g/dL (11.5-15.4); Immature Granulocytes % 0.3 % (0-4); Lymphocytes # 1.2 K/mcL (0.6-4.6); Lymphocytes % 13.3 %; Mean Corpuscular HGB Conc 31.8 g/dL (31.6-35.5); Mean Corpuscular Hemoglobin 30.1 pg (28.0-33.3); Mean Corpuscular Volume 94.7 fL (83.0-100.0); Mean Platelet Volume 9.9 fL (9.4-12.4); Monocytes # 0.8 K/mcL (0.0-1.3); Neutrophils # 6.4 K/mcL (1.6-8.9); Platelet Count 270 K/mcL (140-400); Red Blood Count 3.79 M/mcL (3.82-4.97); Red Cell Distribution Width 14.7 % (11.5-14.5); Segmented Neutrophils % 74.5 %; White Blood Count 8.7 K/mcL (4.3-11.1)
[2019-03-01 05:04] LABS: Calcium 9.1 mg/dL (8.6-10.3); Potassium 3.9 mEq/L (3.5-5.1)
[2019-03-01] MEDS ORDERED: *HR* Rivaroxaban 15 MG TABLET PO SCH (10:00)
[2019-03-01] MEDS: Insulin LISPRO 300 UNITS/3 ML VIAL SQ SCH ×3 (10:20→17:16)
[2019-03-01] MEDS: Mesalamine 250 MG CAPSULE.ER PO SCH (10:20)
[2019-03-01] MEDS: Aspirin 81 MG TAB.CHEW PO SCH (10:21)
[2019-03-01] MEDS: PARoxetine 20 MG TABLET PO SCH (10:21)
[2019-03-01 11:02] LABS: Estimated Average Glucose 146 mg/dl
[2019-03-01] MEDS: *HR* Rivaroxaban 15 MG TABLET PO SCH (17:22)
[2019-03-02 03:47] LABS: Basophils # 0.1 K/mcL (0.0-0.2); Basophils % 0.7 %; Eosinophils # 0.1 K/mcL (0.0-0.6); Eosinophils % 1.1 %; Hematocrit 35.8 % (35.3-44.9); Immature Granulocytes % 0.2 % (0-4); Lymphocytes # 0.9 K/mcL (0.6-4.6); Mean Corpuscular HGB Conc 30.7 g/dL (31.6-35.5); Mean Corpuscular Hemoglobin 29.9 pg (28.0-33.3); Mean Corpuscular Volume 97.3 fL (83.0-100.0); Mean Platelet Volume 9.6 fL (9.4-12.4); Monocytes # 0.8 K/mcL (0.0-1.3); Neutrophils # 7.1 K/mcL (1.6-8.9); Platelet Count 226 K/mcL (140-400); Red Blood Count 3.68 M/mcL (3.82-4.97); Red Cell Distribution Width 14.6 % (11.5-14.5)
[2019-03-02 04:07] LABS: Potassium 3.9 mEq/L (3.5-5.1)
[2019-03-02] MEDS: PARoxetine 20 MG TABLET PO SCH (07:17)
[2019-03-02] MEDS: Aspirin 81 MG TAB.CHEW PO SCH (07:17)
[2019-03-02] MEDS: Mesalamine 250 MG CAPSULE.ER PO SCH (07:17)
[2019-03-02] MEDS: Insulin LISPRO 300 UNITS/3 ML VIAL SQ SCH ×3 (07:21→17:27)
[2019-03-02] MEDS ORDERED: NON-FORMULARY MEDICATION 1 EACH EACH (Lisinopril [Zestril] 40 MG) PO SCH (09:00)
[2019-03-02] MEDS ORDERED: hydrALAZINE 10 MG TABLET PO PRN (09:01)
[2019-03-02] MEDS ORDERED: Sennosides/Docusate Sodium TABLET PO PRN (09:01)
[2019-03-02] MEDS: amLODIPine 5 MG TABLET PO SCH (10:05)
[2019-03-02] MEDS ORDERED: Ondansetron 4 MG/2 ML VIAL IVP PRN (11:36)
[2019-03-02] MEDS: *HR* Rivaroxaban 15 MG TABLET PO SCH (17:27)
[2019-03-03] MEDS: PARoxetine 20 MG TABLET PO SCH (07:30)
[2019-03-03] MEDS: Aspirin 81 MG TAB.CHEW PO SCH (07:30)
[2019-03-03] MEDS: amLODIPine 5 MG TABLET PO SCH (07:30)
[2019-03-03] MEDS: Mesalamine 250 MG CAPSULE.ER PO SCH (07:30)
[2019-03-03] MEDS: Insulin LISPRO 300 UNITS/3 ML VIAL SQ SCH ×3 (07:30→16:23)
[2019-03-03] MEDS ORDERED: Lisinopril 20 MG TABLET PO SCH (09:00)
[2019-03-03 09:44] LABS: Calcium 8.7 mg/dL (8.6-10.3); Potassium 4.3 mEq/L (3.5-5.1)
[2019-03-03] MEDS: *HR* Rivaroxaban 15 MG TABLET PO SCH (16:23)
[2019-03-03] MEDS ORDERED: Ondansetron ODT 4 MG TAB.RAPDIS SL PRN (19:44)
[2019-03-04] MEDS: Insulin LISPRO 300 UNITS/3 ML VIAL SQ SCH ×3 (07:32→17:02)
[2019-03-04] MEDS: PARoxetine 20 MG TABLET PO SCH (08:57)
[2019-03-04] MEDS: Aspirin 81 MG TAB.CHEW PO SCH (08:57)
[2019-03-04] MEDS: Mesalamine 250 MG CAPSULE.ER PO SCH (08:57)
[2019-03-04] MEDS: amLODIPine 5 MG TABLET PO SCH (08:58)
[2019-03-04] MEDS: *HR* Rivaroxaban 15 MG TABLET PO SCH (17:06)
[2019-03-05] MEDS: Mesalamine 250 MG CAPSULE.ER PO SCH (08:10)
[2019-03-05] MEDS: Aspirin 81 MG TAB.CHEW PO SCH (08:10)
[2019-03-05] MEDS: PARoxetine 20 MG TABLET PO SCH (08:10)
[2019-03-05] MEDS: amLODIPine 5 MG TABLET PO SCH (08:11)
[2019-03-05] MEDS: Insulin LISPRO 300 UNITS/3 ML VIAL SQ SCH ×2 (08:22→11:48)
[2019-03-05 11:20] VITALS: BP 134/77
== END 2019-03-05 14:37 | DRG 65 ==
LOC: 3BNU → SUATTDRO 20:47 → 2NNU 20:49
PROVIDERS: ADMIT Internal Medicine; ATTEND Student in an Organized Health Care Education/Training Program

== ENCOUNTER 2019-04-29 13:39 | Inpatient (IN) ==
[2019-04-29] MEDS ORDERED: *HR* HYDROmorphone (PF) 1 MG/ML SYRINGE IVP ONE ×2 (13:46→18:04)
--- NOTE | 2019-04-29 13:49 | Emergency Department Note ---
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 The patient has been receiving physical therapy for right sided weakness from her prior CVA. She lives at home. Patient had an unwitnessed fall today and was found on her right side, right side of her head on the ground, screaming in pain. This was an unwitnessed fall, unknown loss of consciousness. Patient is complaining of a significant amount of right hip pain and right leg pain. This occurred just prior to arrival. - Related Data Home Medications Medication Instructions Recorded Confirmed Acetaminophen [Tylenol] 1,000 mg PO 1-2XD PRN 09/11/15 04/29/19 Furosemide [Lasix] 40 mg PO QAM 09/11/15 04/29/19 Mesalamine [Apriso] 0.75 gm PO QAM 09/11/15 04/29/19 Omeprazole [PriLOSEC] 20 mg PO QAM 09/11/15 04/29/19 Potassium Chloride [K-Tab ER] 20 meq PO DAILY 05/31/16 04/29/19 Metoprolol Succinate 25 mg PO QAM 07/28/17 04/29/19 Aspirin Enteric Coated [Aspirin EC] 81 mg PO QAM 03/01/19 04/29/19 Lisinopril [Zestril] 40 mg PO QAM 03/01/19 04/29/19 Paroxetine [Paxil] 20 mg PO DAILY 04/29/19 04/29/19 Previous Rx's Medication Instructions Recorded Atorvastatin [Lipitor] 80 mg PO HS 30 Days #30 tablet 03/05/19 amLODIPine [Norvasc] 5 mg PO DAILY #30 tablet 03/05/19 Rivaroxaban [Xarelto] 15 mg PO 1700 #30 tablet 04/05/19 cloNIDine HCl [CloNIDine HCl] 0.1 mg PO ONCE PRN #60 tablet 04/05/19 Allergies Allergy/AdvReac Type Severity Reaction Status Date / Time ampicillin Allergy Hives Verified 03/01/19 10:05 morphine AdvReac Hallucinati Verified 03/01/19 10:05 ng nitrofurantoin AdvReac Gastrointestinal Verified 03/22/19 09:26 [From Macrobid] Upset All systems ED: reviewed and negative except as stated. Review of Systems: As Per HPI Constitutional: Denies: fever, chills Cardiovascular: Denies: chest pain, palpitations Respiratory: Denies: cough, dyspnea Gastrointestinal: Denies: abdominal pain, vomiting Musculoskeletal: Reports: other (Right hip pain) Neurological: Denies: numbness Fall PMH - Past Medical History Medical history: Reports: atrial fibrillation, CHF, diabetes, GERD, hypertension, other Surgical history: Reports: appendectomy, hysterectomy, ALAN/BSO Psychiatric history: Reports: anxiety CIRCUS HAND history: Reports: no CIRCUS HAND history - Social History Smoking Status: Never smoker Alcohol use: Reports: none Drug use: Reports: none Physical Exam - General Limitations: no limitations General appearance: alert, in distress - Head Head exam: atraumatic, normocephalic - Eye Eye exam: Present: normal appearance, PERRL, EOMI - ENT ENT exam: normal exam, normal oropharynx - Neck Neck exam: Present: normal inspection, trachea midline. Absent: tenderness - Chest Chest inspection: Present: normal inspection, symmetric chest wall rise - Respiratory Respiratory exam: Present: normal lung sounds bilaterally. Absent: respiratory distress, wheezes - Cardiovascular Cardiovascular exam: Present: regular rate, normal rhythm, irregular rhythm - Abdominal Exam Abdominal exam: Present: soft, Non-Tender. Absent: distention - Extremities Exam Extremities exam: Present: normal capillary refill, other (Significant tenderness to palpation of the right hip, decreased range of motion secondary to pain, right lower extremity is AB ducted and internally rotated, there is shortening of the hip as well. No tenderness to palpation of the knee or foot. Bilateral dorsalis pedis and posterior tibialis pulses are palpable and equal) - Neurological Exam Neurological exam: Present: alert, oriented X3. Absent: motor sensory deficit - Psychiatric Psychiatric exam: Present: normal affect, normal mood - Skin Skin exam: Present: warm, dry Course Vital Signs Temperature 97.7 F 04/29/19 13:42 Pulse Rate 88 04/29/19 13:42 Respiratory Rate 20 04/29/19 13:42 Blood Pressure 149/92 04/29/19 13:42 O2 Sat by Pulse Oximetry 100 04/29/19 13:42 Temperature 97.7 F 04/29/19 13:47 Pulse Rate 72 04/29/19 16:13 Respiratory Rate 16 04/29/19 16:13 Blood Pressure 141/101 04/29/19 16:13 O2 Sat by Pulse Oximetry 97 04/29/19 16:13 Oxygen Delivery Oxygen Delivery Nasal Cannula Fall - MDM Narrative Medical decision making narrative: Patient is presenting with fall. She has significant tenderness to palpation of the right hip and her right hip is abductor and internally rotated. Concern for right hip fracture. She does have chronic weakness of the right side secondary to a CVA. We will also obtain CT head and cervical spine as the patient is on Xarelto. We will also obtain preoperative screening labs. We will give Dilaudid for pain control. 15:30 Patient has a fracture of the intertrochanteric region and proximal femur with offset of the fracture fragments by with of the shaft. Discussed with orthopedic surgery. Patient will be admitted. Patient was still having pains of fentanyl was given. 16:[address] Wilburn, hospitalist to except admission. CT head shows no acute intracranial abnormality, no cervical spine fractures. - Medical Records Medical records reviewed: Yes I reviewed the patient's medical records. - Lab Data Lab results reviewed: Yes I reviewed the patient's lab results. Result diagrams: 04/29/19 14:06 04/29/19 14:06 Lab Results 04/29/19 04/29/19 04/29/19 Range/Units 14:06 14:06 14:06 WBC 8.4 (4.3-11.1) K/mcL RBC 3.57 L (3.82-4.97) M/mcL Hgb 10.5 L (11.5-15.4) g/dL Hct 33.8 L (35.3-44.9) % MCV 94.7 (83.0-100.0) fL MCH 29.4 (28.0-33.3) pg MCHC 31.1 L (31.6-35.5) g/dL RDW 15.1 H (11.5-14.5) % Plt Count 305 (140-400) K/mcL MPV 9.2 L (9.4-12.4) fL Immature Gran % 1.3 (0-4) % Seg Neutrophils % 76.0 % Lymphocytes % 13.5 % Monocytes % 6.9 % Eosinophils % 1.7 % Basophils % 0.6 % Neutrophils # 6.4 (1.6-8.9) K/mcL Lymphocytes # 1.1 (0.6-4.6) K/mcL Monocytes # 0.6 (0.0-1.3) K/mcL Eosinophils # 0.1 (0.0-0.6) K/mcL Basophils # 0.1 (0.0-0.2) K/mcL PT 15.7 H (9.4-12.1) Seconds INR 1.4 Sodium 141 (136-145) mEq/L Potassium 4.9 (3.5-5.1) mEq/L Chloride 103 (98-107) mEq/L Carbon Dioxide 24 (23-29) mEq/L BUN 16 (8-23) mg/dL Creatinine 1.23 H (0.60-1.20) mg/dL Est GFR ( Amer) 51 L (> 60) Est GFR (Non-Af Amer) 42 L (> 60) BUN/Creatinine Ratio 13 (6-26) Glucose 149 H (70-105) mg/dL Calculated Osmolality 296 (280-300) Calcium 9.6 (8.6-10.3) mg/dL - Radiology Data Radiology results reviewed: Yes I reviewed the patient's radiology results. Femur X-Ray 04/29/19 13:46 IMPRESSION: Fracture involving the intertrochanteric region and proximal femur with offset of the fracture fragments by the width of the shaft. D/ / 04/29/2019 15:24:54 Nubia Cali MD / bulmaro Interpreting Provider: Nubia Cali MD Pelvis X-Ray 04/29/19 13:46 IMPRESSION: Fracture involving the intertrochanteric region and proximal femur with offset of the fracture fragments by the width of the shaft. D/ / 04/29/2019 15:24:54 Nubia Cali MD / bulmaro Interpreting Provider: uNbia Cali MD Cervical Spine CT 04/29/19 13:48 IMPRESSION: No acute abnormality of the cervical spine. D/ / Jannet Tony Cha, MD / Jannet Tony Cha, MD Interpreting Provider: Jannet Tony Cha, MD Head CT 04/29/19 13:48 IMPRESSION: No acute intracranial abnormality. Cerebral atrophy. Chronic small vessel ischemic changes. Remote lacunar infarcts in the basal ganglia bilaterally. D/ / 04/29/2019 15:23:10 Nubia Cali MD / bulmaro Interpreting Provider: Nubia Cali MD - EKG Data EKG attestation: Yes I reviewed and interpreted this EKG. EKG results narrative: EKG was obtained at 1501 shows atrial fibrillation with heart rate 76, QRS duration 78, QTC 443, no ST elevation, no ST depression, compared to old EKG on 02/27/2019 which shows no new changes. Attestation Statement - Attestation Attestation: I, Rehan Sargent, examined this patient and my medical decision-making was reviewed with the YARN WRAPPER/PA/Advanced Practice Nurse/Resident Physician. I agree with the documented findings, disposition and treatment plan as described except to the extent set forth below. 83-year-old female presents with concerns of right hip pain. Patient reports a mechanical fall, stating that she tripped secondary to weakness of her right lower extremity from a stroke. Patient denies hitting her head or having loss of consciousness. She has significant pain to palpation of the right hip. Pulses are equal in the bilateral lower extremities. X-ray shows intertrochanteric fracture of the right. Order was counseled regarding patient's case and presentation. They will see the patient hospital. Patient admitted to the hospitalist for further care and evaluation. X-ray was controll ed emergency department with IV pain medication.
[2019-04-29] MEDS ORDERED: *HR* FentaNYL (PF) 100 MCG/2 ML VIAL IVP ONE (14:23)
[2019-04-29] MEDS ORDERED: *HR* FentaNYL (PF) 100 MCG/2 ML VIAL ONE ×2 (14:24→20:16)
[2019-04-29 14:25] LABS: Basophils # 0.1 K/mcL (0.0-0.2); Basophils % 0.6 %; Eosinophils # 0.1 K/mcL (0.0-0.6); Eosinophils % 1.7 %; Hematocrit 33.8 % (35.3-44.9); Hemoglobin 10.5 g/dL (11.5-15.4); Immature Granulocytes % 1.3 % (0-4); Lymphocytes # 1.1 K/mcL (0.6-4.6); Lymphocytes % 13.5 %; Mean Corpuscular HGB Conc 31.1 g/dL (31.6-35.5); Mean Corpuscular Hemoglobin 29.4 pg (28.0-33.3); Mean Corpuscular Volume 94.7 fL (83.0-100.0); Mean Platelet Volume 9.2 fL (9.4-12.4); Monocytes # 0.6 K/mcL (0.0-1.3); Monocytes % 6.9 %; Neutrophils # 6.4 K/mcL (1.6-8.9); Platelet Count 305 K/mcL (140-400); Red Blood Count 3.57 M/mcL (3.82-4.97); Red Cell Distribution Width 15.1 % (11.5-14.5); White Blood Count 8.4 K/mcL (4.3-11.1)
[2019-04-29 14:36] LABS: Calcium 9.6 mg/dL (8.6-10.3); INR 1.4; Potassium 4.9 mEq/L (3.5-5.1); Prothrombin Time 15.7 Seconds (9.4-12.1)
--- NOTE | 2019-04-29 17:45 | Internal Med History&Physical ---
<Luis Carlos Gibbs S - Last Filed: 05/01/19 21:33> Date of Encounter: 05/01/19 Time of Encounter: 17:42 Internal Medicine - H&P: HPI Admitted From: Emergency Dept Plans for Post Hospital Care: Transfer Half-Way Facility History of present illness: Mr. Beltran is a 83-year-old female past medical history significant for atrial fibrillation, CVA, hypertension, hyperlipidemia, diabetes, CHF currently taking xarelto. She suffered an unwitnessed fall at home today and was brought to the ED by ambulance, accompanied by her daughter. Radiographic investigations revealed a right femoral neck fracture with significant displacement, no cervical vertebral fractures, and no acute intracranial abnormalities. Further investigations, including EKG and labs showed no evidence of cardiac or metabolic causes of her fall. I confirmed with the patient that she is currently taking Xarelto, took her last dose yesterday 04/28/2019 at 1700. Of note, she takes no oral medications and no insulin for her diabetes, states she is prediabetic. The patient's CHF seems to be severe, she stated that if she were to walk more than 20 yards at a time, she would likely have to stop to catch her breath. She does state she is able to get around the house okay. At this time she denies any dizziness, lightheadedness, blurry vision or double vision, trouble swallowing or speaking, difficulty breathing, chest pain, abdominal pain, nausea, vomiting, diarrhea, constipation, black stools or bloody stools, difficulty urinating, new weakness or numbness. She is able to wiggle her toes on the right side and able to move all other limbs independently. Past Med Surg Social Fam HX - Past Medical History Medical history: atrial fibrillation, CHF, diabetes, GERD, hypertension, other Additional medical history: UC Psychiatric history: anxiety - Past Surgical History Surgical History: appendectomy, hysterectomy, ALAN/BSO Additional surgical history: left toe removed, Tonsils removed - Social History Smoking Status: Never smoker Smokeless Tobacco Status: No Alcohol use: none Drug use: none - Family History Mother Living Status: Hx Family Cardiac Disorders: Yes Hx Family Respiratory Disorders: No Hx Family Cancer: No Hx Family GI Disorders: No Hx Family Endocrine Disorder: Yes Hx Family Neuromuscular Disorders: No Hx Family Neurologic Disorders: No Hx Family HEENT Disorders: No Hx Family Autoimmune Disorders: No Father Living Status: Hx Family Cardiac Disorders: Yes Hx Family Respiratory Disorders: No Hx Family Cancer: No Hx Family GI Disorders: No Hx Family Endocrine Disorder: No Hx Family Neuromuscular Disorders: No Hx Family Neurologic Disorders: No Hx Family HEENT Disorders: No Hx Family Autoimmune Disorders: No Internal Medicine - H&P: Meds Furosemide [Lasix] 40 mg PO DAILY 09/11/15 [History] Mesalamine [Apriso] 0.75 gm PO DAILY 09/11/15 [History] Omeprazole [PriLOSEC] 20 mg PO DAILY 09/11/15 [History] Potassium Chloride [K-Tab ER] 20 meq PO DAILY 05/31/16 [History] Metoprolol Succinate 25 mg PO DAILY 07/28/17 [History] Aspirin Enteric Coated [Aspirin EC] 81 mg PO QAM 03/01/19 [History] Lisinopril [Zestril] 40 mg PO DAILY 03/01/19 [History] Atorvastatin [Lipitor] 80 mg PO HS 30 Days #30 tablet 03/05/19 [Rx] amLODIPine [Norvasc] 5 mg PO DAILY #30 tablet 03/05/19 [Rx] Rivaroxaban [Xarelto] 15 mg PO 1700 #30 tablet 04/05/19 [Rx] Paroxetine [Paxil] 20 mg PO DAILY 04/29/19 [History] Acetaminophen [Tylenol] 650 mg PO Q6HR PRN 1 Days #8 tablet 05/03/19 [Rx] Ciprofloxacin HCl [Cipro] 250 mg PO BID 7 Days #14 tab 05/03/19 [Rx] Allergy/AdvReac Type Severity Reaction Status Date / Time ampicillin Allergy Hives Verified 03/01/19 10:05 morphine AdvReac Hallucinati Verified 03/01/19 10:05 ng nitrofurantoin AdvReac Gastrointestinal Verified 03/22/19 09:26 [From Macrobid] Upset All Systems PM: A 10-system review of systems was performed and is negative for pertinent findings except as documented above in the HPI. - Constitutional Constitutional: no weakness - EENT Eyes: no blurry vision, no diplopia Nose, mouth and throat: no dysphagia - Cardiovascular Cardiovascular ROS IM: no chest pain, no diaphoresis, no dyspnea, no palpitations - Respiratory Respiratory: no cough, no dyspnea - Gastrointestinal Gastrointestinal: no abdominal pain, no constipation, no diarrhea, no hematochezia, no melena, no vomiting - Genitourinary Genitourinary: no difficulty urinating - Musculoskeletal Musculoskeletal ROS IM: no muscle weakness (Nothing new, reports some weakness in the right upper extremity that has been present since her CVA), no numbness, no tingling - Neurological Neurological ROS: no abnormal speech, no confusion, no dizziness, no numbness, no vertigo, no weakness - Psychiatric Psychiatric: anxiety (Repeatedly and tearfully stated that she is scared to have surgery) - Constitutional Vitals: Temp Pulse Resp BP Pulse Ox 97.7 F 78 16 139/87 97 04/29/19 13:47 04/29/19 17:02 04/29/19 17:02 04/29/19 17:02 04/29/19 17:02 General appearance: Present: cooperative, mild distress, A&O X 3, answers questions appropriately Exam: see below - Head Head exam: Present: atraumatic, normal inspection - Eye Eye exam: Present: normal appearance, conjuntiva pink, sclera anicteric - ENT ENT exam: Present: mucous membranes moist - Neck Neck exam general surgery: Present: normal inspection, trachea midline - Respiratory Respiratory exam: Present: CTAB. Absent: rales, respiratory distress, rhonchi, wheezes - Cardiovascular Cardiovascular exam: Present: irregular rhythm, +S1, +S2. Absent: diastolic murmur, systolic murmur - GI/Abdominal GI/Abdominal exam: Present: normal bowel sounds, soft, no peritoneal signs. Absent: distended, tenderness - Extremities Exam Additional comments: Right leg internally rotated and shortened compared with left leg. Mild bruising present on the anterolateral hip Right arm weak when compared to the left, however patient is able to elevate the arm off the bed and hold it there for more than 10 seconds Right upper extremity demonstrates edema - Psychiatric Psychiatric exam: Present: anxious (Tearfully stated several times "I do not want to " and "I'm scared") Internal Med - H&P Results - Labs CBC & Chem 7: 05/01/19 05:06 05/01/19 05:06 Labs: Short CBC 04/29/19 Range/Units 14:06 WBC 8.4 (4.3-11.1) K/mcL Hgb 10.5 L (11.5-15.4) g/dL Hct 33.8 L (35.3-44.9) % Plt Count 305 (140-400) K/mcL Neutrophils # 6.4 (1.6-8.9) K/mcL BMP 04/29/19 14:06 Sodium 141 Potassium 4.9 Chloride 103 Carbon Dioxide 24 BUN 16 Creatinine 1.23 H Glucose 149 H Calcium 9.6 - Impressions ITS Impressions Femur X-Ray 04/29/19 13:46 IMPRESSION: Fracture involving the intertrochanteric region and proximal femur with offset of the fracture fragments by the width of the shaft. D/ / 04/29/2019 15:24:54 Nubia Cali MD / bulmaro Interpreting Provider: Nubia Cali MD Pelvis X-Ray 04/29/19 13:46 IMPRESSION: Fracture involving the intertrochanteric region and proximal femur with offset of the fracture fragments by the width of the shaft. D/ / 04/29/2019 15:24:54 Nubia Cali MD / bulmaro Interpreting Provider: Nubia Cali MD Cervical Spine CT 04/29/19 13:48 IMPRESSION: No acute abnormality of the cervical spine. D/ / Jannet Tony Cha, MD / Jannet Tony Cha, MD Interpreting Provider: Jannet Tony Cha, MD Head CT 04/29/19 13:48 IMPRESSION: No acute intracranial abnormality. Cerebral atrophy. Chronic small vessel ischemic changes. Remote lacunar infarcts in the basal ganglia bilaterally. D/ / 04/29/2019 15:23:10 Nubia Cali MD / bulmaro Interpreting Provider: Nubia Cali MD - Assessment and Plan (1) Fracture, intertrochanteric, right femur Status: Acute (2) HTN (hypertension) Status: Chronic Assessment and plan: Monitor vitals per postop protocol for first 24 hours Continue Lasix, lisinopril Qualifiers: Hypertension type: essential hypertension Qualified Code(s): I10 - Essential (primary) hypertension (3) Ulcerative colitis Status: Chronic Assessment and plan: Continue mesalamine Qualifiers: Ulcerative colitis location: unspecified ulcerative colitis location Digestive disease complication type: unspecified complication Qualified Code(s): K51.919 - Ulcerative colitis, unspecified with unspecified complications (4) Atrial fibrillation Status: Chronic Assessment and plan: Patient has irregular rhythm on exam, Holding Xarelto for surgery Follow surgery recommendations for anticoagulation for DVT prophylaxis following surgery Qualifiers: Atrial fibrillation type: paroxysmal Qualified Code(s): I48.0 - Paroxysmal atrial fibrillation (5) DVT prophylaxis Status: Acute Assessment and plan: See above (6) Pre-diabetes Status: Acute Assessment and plan: Patient states she is not taking any medications for her diabetes Will check blood sugar via regular BMP in the morning, and reassess need for more frequent POC glucose checks at that time Diabetic diet, when diet is advanced by surgery (7) CKD (chronic kidney disease) Status: Chronic Assessment and plan: BUN is 16, creatinine is 1.23, with an estimated GFR of 42 Renal dosing of all medications requiring adjustment for renal function IV fluid replacement with LR at a rate of 75 mL per hour to maintain urine output of at least 1 mL/KG/hour, averaged over a six-hour period. Qualifiers: Chronic kidney disease stage: stage 3 (moderate) Qualified Code(s): N18.3 - Chronic kidney disease, stage 3 (moderate) - Time Spent With Patient Total time spent is greater than 50% in coordination of care (as documented) at patient's floor/unit and/or counseling patient: <Kody Pugh Douglas - Last Filed: 05/07/19 09:34> Date of Encounter: 05/01/19 Internal Medicine - H&P: HPI History of present illness: Ms. Beltran is a 83 year old female All Systems PM: A 10-system review of systems was performed and is negative for pertinent findings except as documented above in the HPI. - Constitutional Vitals: Temp Pulse Resp BP Pulse Ox 98.2 F 82 16 145/95 97 05/03/19 16:42 05/03/19 16:42 05/03/19 16:42 05/03/19 16:42 05/03/19 16:42 Internal Med - H&P Results - Labs CBC & Chem 7: 05/03/19 17:35 05/03/19 01:22 - ABG Interpretation ABG results: 05/01/19 20:45 ABG pH 7.42 ABG pCO2 35 ABG pO2 66 L ABG HCO3 23 ABG Total CO2 24 ABG O2 Saturation 93 L ABG Base Excess -1 - Impressions ITS Impressions Femur X-Ray 04/29/19 13:46 IMPRESSION: Fracture involving the intertrochanteric region and proximal femur with offset of the fracture fragments by the width of the shaft. D/ / 04/29/2019 15:24:54 Nubia Cali MD / bulmaro Interpreting Provider: Nubia Cali MD Pelvis X-Ray 04/29/19 13:46 IMPRESSION: Fracture involving the intertrochanteric region and proximal femur with offset of the fracture fragments by the width of the shaft. D/ / 04/29/2019 15:24:54 Nubia Cali MD / bulmaro Interpreting Provider: Nubia Cali MD Cervical Spine CT 04/29/19 13:48 IMPRESSION: No acute abnormality of the cervical spine. D/ / Jannet Tony Cha, MD / Jannet Tony Cha, MD Interpreting Provider: Jannet Tony Cha, MD Head CT 04/29/19 13:48 IMPRESSION: No acute intracranial abnormality. Cerebral atrophy. Chronic small vessel ischemic changes. Remote lacunar infarcts in the basal ganglia bilaterally. D/ / 04/29/2019 15:23:10 Nubia Cali MD / bulmaro Interpreting Provider: Nubia Cali MD Fluoroscopy 04/29/19 21:30 IMPRESSION: ORIF right intertrochanteric fracture. D/ / 04/29/2019 23:00:09 Jesús Quispe MD / bulmaro Interpreting Provider: Jesús Quispe MD Chest X-Ray 05/01/19 11:47 IMPRESSION: Large hiatal hernia with linear atelectasis in the left mid lung. D/ / 05/01/2019 12:20:00 Jimbo Levin MD / manuela Interpreting Provider: Jimbo Levin MD - Time Spent With Patient Total time spent is greater than 50% in coordination of care (as documented) at patient's floor/unit and/or counseling patient: - Attending Attestation Please see event note of this date.
[2019-04-29] MEDS ORDERED: Ringers Solution, Lactated 1,000 ML IVC SCH (18:30)
[2019-04-29] MEDS ORDERED: Naloxone 0.4 MG/ML INJ IVP PRN ×2 (18:36→23:51)
--- NOTE | 2019-04-29 18:44 | Event Note ---
Date of Encounter: 04/29/19 Time of Encounter: 18:00 Ms Beltran is an 83 y/o female with CVA in 03/15 presented to ED after fall. Found to have R hip fracture. Ms Beltran recently had CVA and completed rehab. She fell today and landed on R hip. Unknown if LOC. Takes Xarelto for a fib. Last dose yesterday 5PM. At this time she is in significant pain. Exam Alert. Uncomfortable Heart irreg - not tachy Lungs diminished but clear Abd soft R leg shortened EKG - a fib with no acute change. I/P 1. R hip fracture - ortho eval. Pain control 2. A fib on Xarelto 3. Recent CVA. Pt moderate but acceptable risk for low risk procedure.
[2019-04-29] MEDS ORDERED: 0.9 % Sodium Chloride 250 ML IVC SCH ×2 (19:45→23:51)
--- NOTE | 2019-04-29 19:55 | Orthopedic Consult Note ---
Date of Encounter: 04/29/19 Time of Encounter: 19:51 History of Present Illness Chief complaint: Right hip pain HPI: Ms. Beltran is a 83 year old female who sustained an unwitnessed fall in her home today. She had a immediate pain in and about the right hip. She is brought to [facility] x-rays taken revealed evidence of a complex peritrochanteric-type fracture of the right hip. She is admitted for definitive management. Patient does have a significant history for atrial fibrillation for which she takes Xarelto, the last dose was 24 hours ago. 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 Patient has been nothing by mouth since breakfast this morning. I reviewed the patient's completed history and physical examination as well as completed medical record. Pertinent orthopedic examination reveals a pleasant 83-year-old woman in marked distress secondary to right hip pain. Right lower extremity is held in a markedly shortened and internally rotated position. Distal neurosensory exam is grossly intact. Hemoglobin is 10.5. Platelet count normal at 305. Pro time is elevated at 15.7 with a normal INR. BUN is normal with a creatinine of 1.23. GFR is estimated at 42. Impression: Displaced comminuted peritrochanteric fracture right proximal femur Recommendation: With the patient's Xarelto use would recommend a more urgent st abilization of the fracture to minimize fracture motion and continued bleeding. Discussed with the patient that we would be able to proceed with surgery tonight on a somewhat urgent basis. Patient is quite anxious to have her surgery completed in his agreement to proceeding with surgery tonight. Discussed all the potential risks and complications including but not limited to continued bleeding, infection, blood clots, nerve injury, stiffness, malunion, nonunion as well as leg length or rotational deformities. Patient understands this all and has signed informed consent. We will proceed with surgery tonight when operating time is available. Thank you very much for allowing me to see and care for Mrs. Beltran. Sincerely, Beny Francis,DO Past Med Surg Social Fam HX - Past Medical History Medical history: atrial fibrillation, CHF, diabetes, GERD, hypertension, other Additional medical history: UC Psychiatric history: anxiety - Past Surgical History Surgical History: appendectomy, hysterectomy, ALAN/BSO Additional surgical history: left toe removed, Tonsils removed - Social History Smoking Status: Never smoker Smokeless Tobacco Status: No Alcohol use: none Drug use: none - Family History Mother Living Status: Hx Family Cardiac Disorders: Yes Hx Family Respiratory Disorders: No Hx Family Cancer: No Hx Family GI Disorders: No Hx Family Endocrine Disorder: Yes Hx Family Neuromuscular Disorders: No Hx Family Neurologic Disorders: No Hx Family HEENT Disorders: No Hx Family Autoimmune Disorders: No Father Living Status: Hx Family Cardiac Disorders: Yes Hx Family Respiratory Disorders: No Hx Family Cancer: No Hx Family GI Disorders: No Hx Family Endocrine Disorder: No Hx Family Neuromuscular Disorders: No Hx Family Neurologic Disorders: No Hx Family HEENT Disorders: No Hx Family Autoimmune Disorders: No Medications and Allergies Acetaminophen [Tylenol] 1,000 mg PO 1-2XD PRN 09/11/15 [History] Furosemide [Lasix] 40 mg PO QAM 09/11/15 [History] Mesalamine [Apriso] 0.75 gm PO QAM 09/11/15 [History] Omeprazole [PriLOSEC] 20 mg PO QAM 09/11/15 [History] Potassium Chloride [K-Tab ER] 20 meq PO DAILY 05/31/16 [History] Metoprolol Succinate 25 mg PO QAM 07/28/17 [History] Aspirin Enteric Coated [Aspirin EC] 81 mg PO QAM 03/01/19 [History] Lisinopril [Zestril] 40 mg PO QAM 03/01/19 [History] Atorvastatin [Lipitor] 80 mg PO HS 30 Days #30 tablet 03/05/19 [Rx] amLODIPine [Norvasc] 5 mg PO DAILY #30 tablet 03/05/19 [Rx] Rivaroxaban [Xarelto] 15 mg PO 1700 #30 tablet 04/05/19 [Rx] cloNIDine HCl [CloNIDine HCl] 0.1 mg PO ONCE PRN #60 tablet 04/05/19 [Rx] Paroxetine [Paxil] 20 mg PO DAILY 04/29/19 [History] Allergy/AdvReac Type Severity Reaction Status Date / Time ampicillin Allergy Hives Verified 03/01/19 10:05 morphine AdvReac Hallucinati Verified 03/01/19 10:05 ng nitrofurantoin AdvReac Gastrointestinal Verified 03/22/19 09:26 [From Macrobid] Upset All Systems Reviewed: The remainder of the systems were reviewed and are negative Physical Exam - Constitutional Vitals: Temp Pulse Resp BP Pulse Ox 98.3 F 71 19 172/87 92 04/29/19 17:59 04/29/19 17:59 04/29/19 17:59 04/29/19 17:59 04/29/19 17:59 Results - Labs Result Diagrams: 04/29/19 14:06 04/29/19 14:06 Labs: Abnormal lab results RBC 3.57 M/mcL (3.82-4.97) L 04/29/19 14:06 Hgb 10.5 g/dL (11.5-15.4) L 04/29/19 14:06 Hct 33.8 % (35.3-44.9) L 04/29/19 14:06 MCHC 31.1 g/dL (31.6-35.5) L 04/29/19 14:06 RDW 15.1 % (11.5-14.5) H 04/29/19 14:06 MPV 9.2 fL (9.4-12.4) L 04/29/19 14:06 PT 15.7 Seconds (9.4-12.1) H 04/29/19 14:06 Creatinine 1.23 mg/dL (0.60-1.20) H 04/29/19 14:06 Est GFR ( Amer) 51 (> 60) L 04/29/19 14:06 Est GFR (Non-Af Amer) 42 (> 60) L 04/29/19 14:06 Glucose 149 mg/dL (70-105) H 04/29/19 14:06 H & H 04/29/19 Range/Units 14:06 Hgb 10.5 L (11.5-15.4) g/dL Hct 33.8 L (35.3-44.9) % All other labs normal. - Diagnostic results Hip AP/Lateral x-ray: image reviewed Consult Discharge Plan - Plan Referrals: Isabell Dillard MD [Primary Care Provider] -
--- NOTE | 2019-04-29 19:56 | Anesthesia Evaluation PreOp ---
Date of Encounter: 04/29/19 Time of Encounter: 19:53 - Past History Planned Operation: Right TFN Cardiac History: HTN, Hyperlipidemia, Arrhythmia (H/O A-Fibon Xarelto, last dose taken yesterday) Pulmonary History: Denies Any Significant HX, Snore SEAMER PANTY HOSE History: CVA (S/P CVA approximately 1 month ago with residual right sided deficit) Other Medical History: Renal (stage 3 CKD), Diabetes Type II (pre-diabetes), GERD, Other (ulcerative colitis, anxiety) Anesthesia History: No Prior Anesthetic Complications, Past Anesthesia (hysterectomy) Alcohol Use: none Drug use: none Medications and Allergies Acetaminophen [Tylenol] 1,000 mg PO 1-2XD PRN 09/11/15 [History] Furosemide [Lasix] 40 mg PO QAM 09/11/15 [History] Mesalamine [Apriso] 0.75 gm PO QAM 09/11/15 [History] Omeprazole [PriLOSEC] 20 mg PO QAM 09/11/15 [History] Potassium Chloride [K-Tab ER] 20 meq PO DAILY 05/31/16 [History] Metoprolol Succinate 25 mg PO QAM 07/28/17 [History] Aspirin Enteric Coated [Aspirin EC] 81 mg PO QAM 03/01/19 [History] Lisinopril [Zestril] 40 mg PO QAM 03/01/19 [History] Atorvastatin [Lipitor] 80 mg PO HS 30 Days #30 tablet 03/05/19 [Rx] amLODIPine [Norvasc] 5 mg PO DAILY #30 tablet 03/05/19 [Rx] Rivaroxaban [Xarelto] 15 mg PO 1700 #30 tablet 04/05/19 [Rx] cloNIDine HCl [CloNIDine HCl] 0.1 mg PO ONCE PRN #60 tablet 04/05/19 [Rx] Paroxetine [Paxil] 20 mg PO DAILY 04/29/19 [History] Allergy/AdvReac Type Severity Reaction Status Date / Time ampicillin Allergy Hives Verified 03/01/19 10:05 morphine AdvReac Hallucinati Verified 03/01/19 10:05 ng nitrofurantoin AdvReac Gastrointestinal Verified 03/22/19 09:26 [From Macrobid] Upset - Meds/Allergy Pre-op Review Medications Reviewed: Yes Allergies Reviewed: Yes Beta Blockers on Current Med List: Yes If Beta Blockers taken, Date/Time (Last Dose taken): 04/29/2019 at 0900 Anesthesia Results - Labs 04/29/19 14:06 04/29/19 14:06 - Imaging EKG: report reviewed (02/27/2019 Atrial fibrillation Low voltage, precordial leads Nonspecific ST) Additional studies: 02/27/2019 Echo Impressions: LVEF 65%. Indeterminate diastolic function. Borderline LVH. Normal right ventricular structure and function. Bi-atrial enlargement. Mild mitral regurgitation. Mild tricuspid regurgitation. No pulmonary hypertension. No PFO with saline contrast injection. 09/12/2015 Stress Impression: Perfusion imaging was negative for diagnostic ischemia or infarct. Pharmacologic ECG was non diagnostic for ischemia. Patient had no chest pain with stress. Normal hemodynamic response. Gated EF = 65%. The LV is not dilated. There is no evidence of TID. Anesthesia Exam Vital Signs/O2 Sat, Most Current Temp Pulse Resp BP Pulse Ox 98.3 F 71 19 172/87 92 04/29/19 17:59 04/29/19 17:59 04/29/19 17:59 04/29/19 17:59 04/29/19 17:59 Height: 5'6''/1.68m Weight: 175 lbs/79.4 kg NPO (# of Hours): 8 Pain Scale: 7 (right hip) Pain Scale Used: Numeric (1 - 10) - HEENT Pupil (Motor): EOMI Mallampati: III Teeth: Missing, Poor dentition Oral Opening: Greater than 3 - SEAMER PANTY HOSE LOC: Oriented SEAMER PANTY HOSE Motor: Normal LUE, Normal LLE, Normal Face, Deficit RUE, Deficit RLE SEAMER PANTY HOSE Sensory: Normal: LUE, LLE, Face, Deficit: RUE, RLE - Cardiac Rhythm: Irregular Murmur: None - Pulmonary Breath Sounds: bilateral Clear Respiratory Effort: Symmetrical Anesthesia Assess/Plan ASA Score: 3 Level of consciousness: Cooperative, Oriented, Tranquil Anesthetic Plan: General Monitoring Plan: Standard Monitors Recovery Plan: PACU
[2019-04-29] MEDS ORDERED: *HR* HYDROmorphone (PF) 1 MG/ML SYRINGE IVP PRN ×2 (20:02→23:51)
[2019-04-29] MEDS ORDERED: *HR* Propofol 200 MG/20 ML VIAL IVP ONE (20:16)
[2019-04-29] MEDS ORDERED: Lidocaine -MPF 2% 2 ML VIAL ONE (20:16)
[2019-04-29] MEDS ORDERED: *HR* Rocuronium Bromide 50 MG/5 ML VIAL ONE (20:33)
[2019-04-29] MEDS ORDERED: *HR* PHENYLEPHRINE 1,000 MCG/10 ML SYRINGE IVP ONE (20:33)
[2019-04-29] MEDS ORDERED: *HR* Succinylcholine 200 MG/10 ML VIAL IVP ONE (20:33)
[2019-04-29] MEDS ORDERED: Clindamycin 900 MG/50 ML 900 MG/50 ML IV.SOLN IVPB ONE ×2 (20:35→21:00)
[2019-04-29] MEDS ORDERED: Acetaminophen IV 1,000 MG/100 ML INFUS..BTL ONE (20:36)
[2019-04-29] MEDS ORDERED: Lidocaine HCL 4 ML Topical Solution (Laryng-O-Jet Kit Sterile Pak) TP ONE (20:37)
[2019-04-29] MEDS ORDERED: *HR* HYDROMORPHONE 2 MG/ML VIAL ONE (21:48)
--- NOTE | 2019-04-29 23:18 | Operative Note ---
Date of procedure: 04/29/19 Pre-op diagnosis: Displaced, comminuted Post-op diagnosis: same (peritrochanteric fracture right hip) Procedure: 1. Intramedullary nailing right hip/femur 2. Fluoroscopic guidance for IM nailing right hip Implants: Synthes 12 mm x 380 mm TFNA with a 95 mm helical blade and a 46 mm x 5.0 mm distal locking screw Complications: None Anesthesia: GETA Surgeon: Beny Francis Was there an teaching assistant present: No Estimated blood loss (cc): 250 Specimen: None Condition: stable Disposition: PACU Procedure in Detail: Findings: Preoperative x-rays revealed a complex comminuted and displaced fracture involving the peritrochanteric region of the left right hip. This was associated with an isolated lesser trochanteric piece and fracture line extension into the subtrochanteric region. Intraoperatively the fracture was reduced into excellent position and 17 then stabilized with a long trochanteric femoral nail. Fluoroscopy was used to verify the reduction and the guide the placement of the long nail. Nail was locked distally with a single screw utilizing freehand technique. Procedure: Patient is taken the operating room along the hospital bed was administered general anesthesia. Patient was then transferred to the operating table with the fracture table set up. Right lower extremity was placed in longitudinal traction left lower extremity was positioned out of harm's way and well leg baumann. Fluoroscopy was now introduced and reduction the fracture was performed utilizing a combination of traction, abduction and some external rotation. Fracture alignment was excellent. Right hip was now prepped and draped in normal standard fashion for surgery. Incision was made above the level of trochanter and dissection was carried through the abundant adipose tissue down the level of the tip of the trochanter. A guidewire was passed into the proximal femur. Coring type reamers and used to open up the tip of the trochanter. A ball-tipped guide yaima was then exchanged and passed down the canal until it sat just about the level of the patella. The femoral canal was now sequentially reamed with flexible reamers up to and including a size 13.5 mm. The selected 12 mm x 380 mm nail was then placed on the insertion jig and passed over the guidewire. Guidewire was removed and the nail was seated. There was positioned until the guide for the helical blade appeared to provide a appropriate insert entrance point. A separate incision was made in the guide for the helical blade was placed. Guidewire was now passed into the femoral head and a relatively central position on all planes. The length was measured and a 95 mm helical blade was selected. Head and neck were then reamed and then the helical blade was impacted and then locked into position from rotation. Helical blade guide was removed. Nail insertion jig was removed. At this time the distal locking screw was placed utilizing freehand technique and "perfect circles". At this time final fluoroscopic views are taken in multiple planes verifying excellent reduction of the fracture and position of the implants. Wounds now irrigated and closed with 0 undyed Vicryl in the fascia and in the deep subcutaneous tissue followed by multiple inverted interrupted 2-0 undyed Vicryl in the medius obtained his tissue and then skin approximation with stainless steel clips. Sterile dressings consisting of operative foam were applied and secured. Patient was now transferred from the operating table hospital bed, awakened from anesthesia and then transferred to the postanesthesia care unit in stable and satisfactory condition. All sponge and needle evidence for counts are correct. No specimens are sent for pathology.
--- NOTE | 2019-04-29 23:31 | Anesthesia Evaluation Post Op ---
Date of Encounter: 04/29/19 Time of Encounter: 23:30 - Vital Signs Vital Signs: Vital Signs/O2 Sat, Most Current Temp Pulse Resp BP Pulse Ox 99.2 F 62 14 126/77 93 04/29/19 23:06 04/29/19 23:16 04/29/19 23:16 04/29/19 23:16 04/29/19 23:16 - Lungs Lungs: Clear Ascult./Percussion - Airway Airway: Non-obstructed - Cardiovascular Irregular Rate, Baseline Rhythm - Mental Status Mental Status: Asleep with brisk response to light stimulation - Pain Pain Scale: 0 Pain Scale used: Numeric (1 - 10) - Nausea Vomiting Nausea Vomiting: Not Present - Hydration Hydration: NPO, Suarez catheter - Discharge PostOp Status: Transfer Patient to floor
[2019-04-29] MEDS ORDERED: cloNIDine HCl 0.1 MG TABLET PO PRN (23:51)
[2019-04-30] MEDS: Ringers Solution, Lactated 1,000 ML IVC SCH ×2 (00:22→15:30)
[2019-04-30] MEDS: Clindamycin 900 MG/50 ML 900 MG/50 ML IV.SOLN IVPB SCH ×3 (00:23→16:40)
[2019-04-30 01:37] LABS: Basophils # 0.1 K/mcL (0.0-0.2); Basophils % 0.6 %; Eosinophils % 0.2 %; Hematocrit 31.8 % (35.3-44.9); Hemoglobin 9.9 g/dL (11.5-15.4); Immature Granulocytes % 0.5 % (0-4); Lymphocytes # 0.5 K/mcL (0.6-4.6); Lymphocytes % 4.2 %; Mean Corpuscular HGB Conc 31.1 g/dL (31.6-35.5); Mean Corpuscular Hemoglobin 30.7 pg (28.0-33.3); Mean Corpuscular Volume 98.5 fL (83.0-100.0); Mean Platelet Volume 9.4 fL (9.4-12.4); Monocytes # 0.3 K/mcL (0.0-1.3); Monocytes % 2.7 %; Neutrophils # 10.2 K/mcL (1.6-8.9); Platelet Count 243 K/mcL (140-400); Red Blood Count 3.23 M/mcL (3.82-4.97); Red Cell Distribution Width 15.3 % (11.5-14.5); Segmented Neutrophils % 91.8 %; White Blood Count 11.2 K/mcL (4.3-11.1)
[2019-04-30 01:44] LABS: INR 1.3; Prothrombin Time 14.6 Seconds (9.4-12.1)
[2019-04-30 02:03] LABS: Calcium 8.8 mg/dL (8.6-10.3); Potassium 4.4 mEq/L (3.5-5.1)
[2019-04-30] MEDS: amLODIPine 5 MG TABLET PO SCH (07:54)
[2019-04-30] MEDS: Aspirin Enteric Coated 81 MG Tablet PO SCH (07:54)
[2019-04-30] MEDS: Metoprolol XL (24 HR) Succ 25 MG TAB.ER.24H PO SCH (07:54)
[2019-04-30] MEDS: Furosemide 40 MG TABLET PO SCH (07:54)
[2019-04-30] MEDS: Lisinopril 20 MG TABLET PO SCH (07:55)
[2019-04-30] MEDS: Mesalamine 250 MG CAPSULE.ER PO SCH (07:55)
[2019-04-30] MEDS ORDERED: 0.9 % Sodium Chloride 1,000 ML IVC ONE (10:29)
[2019-04-30] MEDS ORDERED: 0.9 % Sodium Chloride 1,000 ML ONE (10:32)
--- NOTE | 2019-04-30 13:52 | Electrocardiograph Report ---
[address] [place], [place] [address] Test Date: 2019-04-29 Pat Name: Jaye Beltran Department: EXAM5 Room: [facility] Gender: F Loan Assistant: : [id number] Requested By: Deirdre Munoz Order Number: [id number] Reading MD: Nita Grant Measurements Intervals [place] Rate: 76 P: VT: QRS: 7 QRSD: 78 T: 40 QT: 394 QTc: 443 Interpretive Statements Atrial fibrillation Low voltage, precordial leads Electronically Signed On 04-30-2019 13:50:54 EDT by Nita Grant
--- NOTE | 2019-04-30 15:38 | Internal Med Progress Note ---
<Luis Carlos Gibbs S - Last Filed: 04/30/19 15:33> Hospitalist Progress Note - Encounter Date of Encounter: 04/30/19 Time of Encounter: 15:33 - Subjective Interval History: Mrs. Beltran is an 83-year-old female past medical history of A. fib, prior CVA, hypertension, hyperlipidemia, diabetes, and CHF who was brought to the emergency department yesterday after suffering a fall at home. On x-ray she was found to have a peritrochanteric fracture of the right femur, and was taken last night for urgent surgical repair, secondary to her being on Xarelto, and concern that the comminuted bone fragments may exacerbate bleeding. Today she is doing well, though still in significant pain. Her mood is significantly improved from yesterday. Where yesterday she was tearful and in moderate distress, today she is pleasant and conversant, though winces in pain occasionally. She states her pain is well-controlled, denies any nausea, vomi ting, fevers, chills. She had a bowel movement earlier today, and does not report any sensations of abdominal bloating or pain. - Exam Vitals: Temp Pulse Resp BP Pulse Ox 98.1 F 78 14 111/57 93 04/30/19 15:21 04/30/19 15:21 04/30/19 15:21 04/30/19 15:21 04/30/19 15:21 Exam: Gen: Awake and alert, no acutedistress, well-nourished, well kempt Head: Normocephalic, atraumatic Eyes: EOMI, no scleral icterus ENT: Mucous membranes moist, no oropharyngeal erythema CV: S1-S2 present, irregular at a rate of about 60, no murmurs rubs or gallops Pulm: CTAB, not tachypneic, no respiratory distress, no increased work of breathing Abd: Soft, nontender to palpation, nondistended, no rebound or guarding. Bowel sounds present EXT: Limb length discrepancy in the lower extremities has been resolved by surgery, neurovascularly intact, right upper extremity edema unchanged from yesterday, trace bilateral lower extremity edema, no distal cyanosis or pallor Skin: Warm, dry, intact, Neuro: Cranial nerves II-XII grossly intact, no focal nurologic deficits Psych: normal mood and affect, Answers questions with intact judgement, appropriate insight, and linear thought Surgical site: Clean and dry, mild dried non-purulent drainage present on bandages - Assessment and Plan (1) Fracture, intertrochanteric, right femur Current Visit: Yes Status: Acute Assessment and Plan: Patient feeling much better after surgery Pain is well controlled Bowel movement today Continued postop recovery per recommendations of ortho (2) HTN (hypertension) Current Visit: No Status: Chronic Assessment and Plan: Pressures have been very well controlled on her current regimen, staying around 120/70 Continue current antihypertensive regimen (3) Ulcerative colitis Current Visit: No Status: Chronic Assessment and Plan: Patient denies abdominal pain, bloating, cramping, diarrhea this time Continue mesalamine (4) Atrial fibrillation Current Visit: No Status: Chronic Assessment and Plan: Rate well controlled, persistently irregular rhythm on exam Resumes her also with usual dose at 5 PM, as per Dr. Francis's order (5) DVT prophylaxis Current Visit: No Status: Acute Assessment and Plan: Xarelto to be resumed tonight (6) Pre-diabetes Current Visit: No Status: Acute Assessment and Plan: Patient's sugars have not been significantly elevated with morning BMPs Signs and symptoms of hyperglycemia not present Continue regular diet, Continue to monitor her morning BMPs (7) CKD (chronic kidney disease) Current Visit: No Status: Chronic Assessment and Plan: BUN/creatinine creatinine within normal limits today Continue to monitor DVT Prophylaxis: Patient on Xarelto - Summary of Assessment and Plan Summary of Assessment and Plan: Continue pain management plan PT OT as prescribed by ortho Continue regular diet - Time Spent with Patient Total time spent is greater than 50% in coordination of care (as documented) at patient's floor/unit and/or counseling patient: Internal Medicine: Result - Labs CBC & Chem 7: 04/30/19 01:12 04/30/19 01:12 Labs: Short CBC 04/30/19 Range/Units 01:12 WBC 11.2 H (4.3-11.1) K/mcL Hgb 9.9 L (11.5-15.4) g/dL Hct 31.8 L (35.3-44.9) % Plt Count 243 (140-400) K/mcL Neutrophils # 10.2 H (1.6-8.9) K/mcL BMP 04/30/19 01:12 Sodium 137 Potassium 4.4 Chloride 104 Carbon Dioxide 21 L BUN 16 Creatinine 1.08 Glucose 179 H Calcium 8.8 - ABG Interpretation ABG results: PT/INR, D-dimer PT 14.6 Seconds (9.4-12.1) H 04/30/19 01:12 - Impressions Impressions Cervical Spine CT 04/29/19 13:48 IMPRESSION: No acute abnormality of the cervical spine. D/ / Jannet Tony Cha, MD / Jannet Tony Cha, MD Interpreting Provider: Jannet Tony Cha, MD Fluoroscopy 04/29/19 21:30 IMPRESSION: ORIF right intertrochanteric fracture. D/ / 04/29/2019 23:00:09 Jesús Quispe MD / [facility] Interpreting Provider: Jesús Quispe MD Consult Discharge Plan - Plan Referrals: Isabell Dillard MD [Primary Care Provider] - <Kody Pugh - Last Filed: 04/30/19 18:33> Hospitalist Progress Note - Encounter Date of Encounter: 04/30/19 - Exam Vitals: Temp Pulse Resp BP Pulse Ox 98.1 F 78 14 111/57 93 04/30/19 15:21 04/30/19 15:21 04/30/19 15:21 04/30/19 15:21 04/30/19 15:21 - Time Spent with Patient Total time spent is greater than 50% in coordination of care (as documented) at patient's floor/unit and/or counseling patient: Internal Medicine: Result - Labs CBC & Chem 7: 04/30/19 01:12 04/30/19 01:12 Labs: Short CBC 04/30/19 Range/Units 01:12 WBC 11.2 H (4.3-11.1) K/mcL Hgb 9.9 L (11.5-15.4) g/dL Hct 31.8 L (35.3-44.9) % Plt Count 243 (140-400) K/mcL Neutrophils # 10.2 H (1.6-8.9) K/mcL BMP 04/30/19 01:12 Sodium 137 Potassium 4.4 Chloride 104 Carbon Dioxide 21 L BUN 16 Creatinine 1.08 Glucose 179 H Calcium 8.8 - ABG Interpretation ABG results: PT/INR, D-dimer PT 14.6 Seconds (9.4-12.1) H 04/30/19 01:12 - Impressions Impressions Fluoroscopy 04/29/19 21:30 IMPRESSION: ORIF right intertrochanteric fracture. D/ / 04/29/2019 23:00:09 Jesús Quispe MD / [facility] Interpreting Provider: Jesús Quispe MD - Attending Attestation I examined this patient and my medical decision-making was reviewed with the Resident Physician on 04/30/19. I agree with the documented findings, disposition and treatment plan as described except to the extent set forth below. Ms Beltran is currently admitted for acute R hip fracture s/p ORIF. She remains moderate to high risk due to potential for worsening clinical status. Ms Beltran is with PT at this time. Pain is much better. No fever or chills. No CP or SOB. Had some hypotension today - resolved with fluids. Exam Alert. Comfortable NC. Mucus membranes dry. EOMI Heart irreg - not tachy No wheeze Abd soft R side weakness I/P 1. R hip fracture - s/p ORIF. D/C planning. <Luis Carlos Gibbs S - Last Filed: 04/30/19 15:33> (1) Fracture, intertrochanteric, right femur Qualifiers: Encounter type: initial encounter Fracture type: closed Fracture alignment: displaced Qualified Code(s): S72.141A - Displaced intertrochanteric fracture of right femur, initial encounter for closed fracture (2) HTN (hypertension) Qualifiers: Hypertension type: essential hypertension Qualified Code(s): I10 - Essential (primary) hypertension (3) Ulcerative colitis Qualifiers: Ulcerative colitis location: unspecified ulcerative colitis location Diges tive disease complication type: unspecified complication Qualified Code(s): K51.919 - Ulcerative colitis, unspecified with unspecified complications (4) Atrial fibrillation Qualifiers: Atrial fibrillation type: paroxysmal Qualified Code(s): I48.0 - Paroxysmal atrial fibrillation (7) CKD (chronic kidney disease) Qualifiers: Chronic kidney disease stage: stage 3 (moderate) Qualified Code(s): N18.3 - Chronic kidney disease, stage 3 (moderate)
[2019-04-30] MEDS: *HR* Rivaroxaban 15 MG TABLET PO SCH (16:40)
--- NOTE | 2019-04-30 19:51 | Orthopedics Progress Note ---
Date of Encounter: 04/30/19 Time of Encounter: 19:49 Subjective Principal diagnosis: Peritrochanteric fracture right hip Interval history: 04/30/2019. Patient is postop day #1 after having had a long intramedullary nail for a peritrochanteric fracture of the right hip. Patient is doing much better. She is in much better spirits. Pain is markedly improved from preop. Vital signs are stable. Patient is afebrile. Dressings are clean dry and intact. Hemoglobin is 9.9. Platelet count is normal. PTT is 14.6. Impression: POD #1 intramedullary nailing right hip/femur fracture, orthopedic status stable. Recommendation: Patient is stable to continue her rehabilitation program. At this time want to continue with touchdown weightbearing only. Work on mobilizat ion exercises and ambulation training. 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 Objective Vital signs: Vital Signs Temp Pulse Resp BP Pulse Ox 04/30/19 18:39 97.9 F 98 14 93/60 92 04/30/19 15:21 98.1 F 78 14 111/57 93 04/30/19 11:00 97.9 F 78 16 110/69 96 04/30/19 06:39 98 F 64 16 128/76 97 04/30/19 03:07 97.8 F 59 15 123/83 97 04/30/19 02:30 62 16 126/81 96 04/30/19 01:25 66 15 122/76 96 04/30/19 00:28 97.7 F 66 16 122/83 96 04/29/19 23:59 97.6 F 67 16 144/83 93 04/29/19 23:36 98.3 F 66 16 119/78 93 04/29/19 23:26 70 14 116/80 93 04/29/19 23:16 62 14 126/77 93 04/29/19 23:06 99.2 F 69 12 121/66 96 04/29/19 20:20 98.3 F 78 16 152/98 90 Intake and Output 04/30/19 04/30/19 04/30/19 07:59 15:59 23:59 Intake Total 50 / 1460 1410 / 1460 Output Total 200 / 200 Balance -150 / 1260 1410 / 1260 Intake: IV Fluids 50 / 1100 1050 / 1100 Lactated Ringers 1,000 ML @ 75 1000 / 1000 mls/hr IVC .[id number] [facility] Rx#: [id number] Cleocin Premix 900 MG/50 ML 900 50 / 100 50 / 100 mg In 50 ml @ 50 mls/hr IVPB Q8HR ROM[facility] Rx#:[id number] Oral 0 / 360 360 / 360 Output: Catheter 200 / 200 Other: Meal Lunch Percent of Meal Consumed 25% # Voids 1 Weight 80.721 kg Patient Weight 04/30/19 23:59 Weight 80.721 kg - Labs CBC & BMP: 04/30/19 01:12 04/30/19 01:12 Labs: Abnormal lab results WBC 11.2 K/mcL (4.3-11.1) H 04/30/19 01:12 RBC 3.23 M/mcL (3.82-4.97) L 04/30/19 01:12 Hgb 9.9 g/dL (11.5-15.4) L 04/30/19 01:12 Hct 31.8 % (35.3-44.9) L 04/30/19 01:12 MCHC 31.1 g/dL (31.6-35.5) L 04/30/19 01:12 RDW 15.3 % (11.5-14.5) H 04/30/19 01:12 MPV 9.2 fL (9.4-12.4) L 04/29/19 14:06 Neutrophils # 10.2 K/mcL (1.6-8.9) H 04/30/19 01:12 Lymphocytes # 0.5 K/mcL (0.6-4.6) L 04/30/19 01:12 PT 14.6 Seconds (9.4-12.1) H 04/30/19 01:12 Carbon Dioxide 21 mEq/L (23-29) L 04/30/19 01:12 Creatinine 1.23 mg/dL (0.60-1.20) H 04/29/19 14:06 Est GFR ( Amer) 59 (> 60) L 04/30/19 01:12 Est GFR (Non-Af Amer) 49 (> 60) L 04/30/19 01:12 Glucose 179 mg/dL (70-105) H 04/30/19 01:12 Crossmatch See Detail 04/29/19 19:58 Consult Discharge Plan - Plan Referrals: Isabell Dillard MD [Primary Care Provider] -
[2019-05-01 06:11] LABS: Basophils # 0.1 K/mcL (0.0-0.2); Basophils % 0.6 %; Eosinophils # 0.4 K/mcL (0.0-0.6); Eosinophils % 3.5 %; Hematocrit 28.3 % (35.3-44.9); Hemoglobin 8.6 g/dL (11.5-15.4); Immature Granulocytes % 0.4 % (0-4); Lymphocytes # 1.2 K/mcL (0.6-4.6); Lymphocytes % 10.5 %; Mean Corpuscular HGB Conc 30.4 g/dL (31.6-35.5); Mean Corpuscular Hemoglobin 30.3 pg (28.0-33.3); Mean Corpuscular Volume 99.6 fL (83.0-100.0); Mean Platelet Volume 9.7 fL (9.4-12.4); Monocytes # 0.9 K/mcL (0.0-1.3); Monocytes % 7.9 %; Platelet Count 259 K/mcL (140-400); Red Blood Count 2.84 M/mcL (3.82-4.97); Red Cell Distribution Width 15.7 % (11.5-14.5); Segmented Neutrophils % 77.1 %; White Blood Count 11.7 K/mcL (4.3-11.1)
[2019-05-01 06:30] LABS: Calcium 8.6 mg/dL (8.6-10.3); Potassium 4.5 mEq/L (3.5-5.1)
[2019-05-01] MEDS: amLODIPine 5 MG TABLET PO SCH (08:24)
[2019-05-01] MEDS: Lisinopril 20 MG TABLET PO SCH (08:24)
[2019-05-01] MEDS: Metoprolol XL (24 HR) Succ 25 MG TAB.ER.24H PO SCH (08:24)
[2019-05-01] MEDS: Aspirin Enteric Coated 81 MG Tablet PO SCH (08:24)
[2019-05-01] MEDS: Furosemide 40 MG TABLET PO SCH (08:25)
[2019-05-01] MEDS: Mesalamine 250 MG CAPSULE.ER PO SCH (08:25)
[2019-05-01] MEDS ORDERED: Acetaminophen 650 MG RECTAL SUPP RC PRN (11:46)
--- NOTE | 2019-05-01 13:15 | Internal Med Progress Note ---
<Chantal Martin - Last Filed: 05/01/19 16:35> Hospitalist Progress Note - Encounter Date of Encounter: 05/01/19 - Exam Vitals: Temp Pulse Resp BP Pulse Ox 97.7 F 90 16 100/69 94 05/01/19 10:53 05/01/19 10:53 05/01/19 10:53 05/01/19 10:53 05/01/19 10:53 - Time Spent with Patient Total time spent is greater than 50% in coordination of care (as documented) at patient's floor/unit and/or counseling patient: Internal Medicine: Result - Labs CBC & Chem 7: 05/01/19 05:06 05/01/19 05:06 Labs: Short CBC 05/01/19 Range/Units 05:06 WBC 11.7 H (4.3-11.1) K/mcL Hgb 8.6 L (11.5-15.4) g/dL Hct 28.3 L (35.3-44.9) % Plt Count 259 (140-400) K/mcL Neutrophils # 9.0 H (1.6-8.9) K/mcL BMP 05/01/19 05:06 Sodium 139 Potassium 4.5 Chloride 103 Carbon Dioxide 22 L BUN 28 H Creatinine 1.71 H Glucose 152 H Calcium 8.6 - ABG Interpretation ABG results: PT/INR, D-dimer PT 14.6 Seconds (9.4-12.1) H 04/30/19 01:12 - Impressions Impressions Femur X-Ray 04/29/19 13:46 IMPRESSION: Fracture involving the intertrochanteric region and proximal femur with offset of the fracture fragments by the width of the shaft. D/ / 04/29/2019 15:24:54 Nubia Cali MD / [facility] Interpreting Provider: Nubia Cali MD Pelvis X-Ray 04/29/19 13:46 IMPRESSION: Fracture involving the intertrochanteric region and proximal femur with offset of the fracture fragments by the width of the shaft. D/ / 04/29/2019 15:24:54 Nubia Cali MD / [facility] Interpreting Provider: Nubia Cali MD Head CT 04/29/19 13:48 IMPRESSION: No acute intracranial abnormality. Cerebral atrophy. Chronic small vessel ischemic changes. Remote lacunar infarcts in the basal ganglia bilaterally. D/ / 04/29/2019 15:23:10 Nubia Cali MD / [facility] Interpreting Provider: Nubia Cali MD Fluoroscopy 04/29/19 21:30 IMPRESSION: ORIF right intertrochanteric fracture. D/ / 04/29/2019 23:00:09 Jesús Quispe MD / [facility] Interpreting Provider: Jesús Quispe MD Chest X-Ray 05/01/19 11:47 IMPRESSION: Large hiatal hernia with linear atelectasis in the left mid lung. D/ / 05/01/2019 12:20:00 Jimbo Levin MD / [facility] Interpreting Provider: Jimbo Levin MD Consult Discharge Plan - Plan Referrals: Isabell Dillard MD [Primary Care Provider] - - Attending Attestation I examined this patient and my medical decision-making was reviewed with the Resident Physician Dr mccann. I agree with the documented findings, disposition and treatment plan as described except to the extent set forth below. Ms Beltran is currently admitted for acute R hip fracture s/p ORIF. awake, working with therapy, having pain today, has no other complaints. gen- alert, awake,appears stated age cv- reg rate and rhythm, normal s1,s2 lungs- ctabl, no wheezing, rhonchi or crackles, normal resp effort abd- soft, non tender, non distended, + bs neuro- AAOxperson, place, situation, CN grossly intact, moves all ext without focal deficit 1. R hip fracture - s/p ORIF- given mild confusion today reduce pain meds, dispo will be to snf, likely tomorrow will have bed available per 2. RICARDO - hold acei (already got dose today), avoid nephrotoxins, repeat creat in am, check UA 3. chronic stable HFpEF- cont home meds further dx and plan as noted by resident <Luis Carlos Mccann - Last Filed: 05/01/19 20:31> Hospitalist Progress Note - Encounter Date of Encounter: 05/01/19 Time of Encounter: 13:15 - Subjective Interval History: Mrs. Beltran is an 83-year-old female with past medical history of A. fib, prior CVA, hypertension, hyperlipidemia, diabetes, and CHF who was brought to the emergency department monday after suffering a fall at home. On x-ray she was found to have a peritrochanteric fracture of the right femur, and was taken that night for urgent surgical repair. Urgency was due to her being on Xarelto, which was cause for concern that the comminuted bone fragments may exacerbate bleeding as they moved. She had a bowel movement the morning of pod#1, was tolerating advancement of her diet, and was completely alert, oriented, and pleasant. Today, she was noted to be acutely less oriented and more confused than she was yesterday. * On my exam, she was moderately agitated, she recognized me, when I asked if she knew who I was she pointed at me and said "doctor" she stated several times "they are trying to get me" and "I just do not know what is going on" and "I don't know what they did to me." * She denied any chest pain, palpitations, shortness of breath, headache, nausea, vomiting. She denied any trouble urinating or having bowel movements. * She was able to mostly comply with the physical exam, when asked to squeeze my fingers she replied "Oh, but I don't want to hurt you." Motor and sensory function of the upper extremities continues to be at her baseline, with ongoing right-sided deficits from an old stroke. On examination of the lower extremities, trace edema was noted in both legs. When asked to wiggle the toes on her right foot she lifted her left leg, repeated attempts to assess motor function in her right leg continued to mann responses of movement of her left leg. She was seated in a chair comfortably, however movement of her right leg caused significant sharp pain. - Exam Vitals: Temp Pulse Resp BP Pulse Ox 97.7 F 90 16 100/69 94 05/01/19 10:53 05/01/19 10:53 05/01/19 10:53 05/01/19 10:53 05/01/19 10:53 Exam: Gen: Awake and alert, not well oriented, mild acute distress, well-nourished, well kempt Head: Normocephalic, atraumatic Eyes: EOMI, no scleral icterus ENT: Mucous membranes moist, no oropharyngeal erythema CV: S1-S2 present, irregularly irregular at a rate of about 60, no murmurs rubs or gallops Pulm: CTAB, not tachypneic, no respiratory distress, no increased work of federico athing Abd: Soft, nontender to palpation, nondistended, no rebound or guarding. Bowel sounds present EXT: Extremity exam somewhat limited by patient's mental status and her seated position. right upper extremity edema unchanged from yesterday, trace bilateral lower extremity edema, no distal cyanosis or pallor Skin: Warm, dry, intact, Neuro: Cranial nerves II-XII grossly intact, no new focal nurologic deficits Surgical site: Clean and dry, mild dried non-purulent drainage present on bandages Psych: Overall patient is confused and slightly inattentive, most notable change from yesterday is non-linear, illogical thought. she also has very poor insight. she does not appear to be responding to internal stimuli or experiencing visual or auditory hallucinations. - Assessment and Plan (1) Fracture, intertrochanteric, right femur Current Visit: Yes Status: Resolved Assessment and Plan: Postoperative day 2 Patient still experiencing pain Remains neurovascularly intact distal to the operation * PT/OT to continue to work with the patient while inpatient * Plan to continue PT/OT as outpatient * Pain management with narcotic medications is a suspected etiology of the pat salome's altered mental status, as such we reduced her narcotics to Percocet 5/325, and increased her acetaminophen to 650 mg Q4H PRN * Continue to follow recommendations of Ortho (2) HTN (hypertension) Current Visit: No Status: Chronic Assessment and Plan: Patient's blood pressure has been low normal Minor consideration that pharmacologic hypotension compared to her baseline might be contributing to her altered mental status If altered mental status continues tomorrow without signs of an etiology, pos sible consideration will be made to decrease her antihypertensive regimen with a goal of increasing perfusion pressure (3) Ulcerative colitis Current Visit: No Status: Chronic Assessment and Plan: Continue mesalamine (4) Atrial fibrillation Current Visit: No Status: Chronic Assessment and Plan: Patient is taking dual antiplatelet therapy with aspirin and xarelto Rate control with metoprolol and amlodipine Continue current medications (5) DVT prophylaxis Current Visit: No Status: Acute Assessment and Plan: Patient is on Xarelto (6) Pre-diabetes Current Visit: No Status: Acute Assessment and Plan: Sugars thus far have not merited intervention Continue to monitor serum glucose with serial BMPs (7) CKD (chronic kidney disease) Current Visit: No Status: Chronic Assessment and Plan: New RICARDO present on labs this morning, with a BUN increased from 16 to 28 and a creatinine increased from 1.08 to 1.71. Given patient's altered mental status, this somewhat increases the likelihood of UTI as the source of the patient's change in mentation * obtain a UA * Continued oral liquids with meals and as needed * IV fluid rehydration if needed * Monitor I's and O's DVT Prophylaxis: Patient taking Xarelto - Time Spent with Patient Total time spent is greater than 50% in coordination of care (as documented) at patient's floor/unit and/or counseling patient: Internal Medicine: Result - Labs CBC & Chem 7: 05/01/19 05:06 05/01/19 05:06 Labs: Short CBC 05/01/19 Range/Units 05:06 WBC 11.7 H (4.3-11.1) K/mcL Hgb 8.6 L (11.5-15.4) g/dL Hct 28.3 L (35.3-44.9) % Plt Count 259 (140-400) K/mcL Neutrophils # 9.0 H (1.6-8.9) K/mcL BMP 05/01/19 05:06 Sodium 139 Potassium 4.5 Chloride 103 Carbon Dioxide 22 L BUN 28 H Creatinine 1.71 H Glucose 152 H Calcium 8.6 - ABG Interpretation ABG results: PT/INR, D-dimer PT 14.6 Seconds (9.4-12.1) H 04/30/19 01:12 - Impressions Impressions Femur X-Ray 04/29/19 13:46 IMPRESSION: Fracture involving the intertrochanteric region and proximal femur with offset of the fracture fragments by the width of the shaft. D/ / 04/29/2019 15:24:54 Nubia Cali MD / [facility] Interpreting Provider: Nubia Cali MD Pelvis X-Ray 04/29/19 13:46 IMPRESSION: Fracture involving the intertrochanteric region and proximal femur with offset of the fracture fragments by the width of the shaft. D/ / 04/29/2019 15:24:54 Nubia Cali MD / [facility] Interpreting Provider: Nubia Cali MD Head CT 04/29/19 13:48 IMPRESSION: No acute intracranial abnormality. Cerebral atrophy. Chronic small vessel ischemic changes. Remote lacunar infarcts in the basal ganglia bilaterally. D/ / 04/29/2019 15:23:10 Nubia Cali MD / [facility] Interpreting Provider: Nubia Cali MD Fluoroscopy 04/29/19 21:30 IMPRESSION: ORIF right intertrochanteric fracture. D/ / 04/29/2019 23:00:09 Jesús Quispe MD / [facility] Interpreting Provider: Jesús Quispe MD Chest X-Ray 05/01/19 11:47 IMPRESSION: Large hiatal hernia with linear atelectasis in the left mid lung. D/ / 05/01/2019 12:20:00 Jimbo Levin MD / [facility] Interpreting Provider: Jimbo Levin MD <Luis Carlos Mccann S - Last Filed: 05/01/19 20:31> (1) Fracture, intertrochanteric, right femur Qualifiers: Encounter type: initial encounter Fracture type: closed Fracture alignment: displaced Qualified Code(s): S72.141A - Displaced intertrochanteric fracture of right femur, initial encounter for closed fracture (2) HTN (hypertension) Qualifiers: Hypertension type: essential hypertension Qualified Code(s): I10 - Essential (primary) hypertension (3) Ulcerative colitis Qualifiers: Ulcerative colitis location: unspecified ulcerative colitis location Digestive disease complication type: unspecified complication Qualified Code(s): K51.919 - Ulcerative colitis, unspecified with unspecified complica tions (4) Atrial fibrillation Qualifiers: Atrial fibrillation type: paroxysmal Qualified Code(s): I48.0 - Paroxysmal atrial fibrillation (7) CKD (chronic kidney disease) Qualifiers: Chronic kidney disease stage: stage 3 (moderate) Qualified Code(s): N18.3 - Chronic kidney disease, stage 3 (moderate)
[2019-05-01] MEDS: *HR* OxyCODONE/APAP 5/325 TABLET PO PRN ×2 (13:45→21:43)
[2019-05-01] MEDS: *HR* Rivaroxaban 15 MG TABLET PO SCH (16:52)
--- NOTE | 2019-05-01 20:09 | Orthopedics Progress Note ---
Date of Encounter: 05/01/19 Time of Encounter: 20:07 Subjective Principal diagnosis: Peritrochanteric fracture right hip Interval history: 04/30/2019. Patient is postop day #1 after having had a long intramedullary nail for a peritrochanteric fracture of the right hip. Patient is doing much better. She is in much better spirits. Pain is markedly improved from preop. Vital signs are stable. Patient is afebrile. Dressings are clean dry and intact. Hemoglobin is 9.9. Platelet count is normal. PTT is 14.6. Impression: POD #1 intramedullary nailing right hip/femur fracture, orthopedic status stable. Recommendation: Patient is stable to continue her rehabilitation program. At this time want to continue with touchdown weightbearing only. Work on mobilizat ion exercises and ambulation training. 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 05/01/2019. Patient POD #2 IM nailing right hip fracture. Patient is somewhat more confused than baseline. Vital signs are stable. Afebrile. Dressings clean and dry. Hemoglobin has dropped to 8.6. White blood cell count is stable at 11.7. Platelet count normal at 259. Impression: POD #2 IM nailing right hip Recommendation: Patient is to continue with rehabilitation with touchdown weightbearing only on the right lower extremity. Orthopedic status is stable for discharge when medically appropriate. We will need follow-up with me in approximately 2-3 weeks'. As long as her dressings are clean dry and intact she can shower and will not require any incision care. care. Objective Vital signs: Vital Signs Temp Pulse Resp BP Pulse Ox 05/01/19 19:51 98.1 F 84 14 101/73 96 05/01/19 10:53 97.7 F 90 16 100/69 94 05/01/19 08:47 98.1 F 78 16 118/74 93 05/01/19 08:31 91 05/01/19 04:11 99.1 F 81 15 120/68 91 05/01/19 03:36 92 122/78 04/30/19 23:01 98.0 F 77 15 108/70 92 Intake and Output 05/01/19 05/01/19 05/01/19 07:59 15:59 23:59 Intake Total 1000 / 1000 Output Total 0 / 0 Balance 1000 / 1000 0 / 1000 Intake: IV Fluids 1000 / 1000 Lactated Ringers 1,000 ML @ 75 1000 / 1000 mls/hr IVC .[id number] [facility] Rx#: [id number] Output: Urine 0 / 0 Other: # Urine Diapers 1 1 Weight 80.1 kg Patient Weight 05/01/19 23:59 Weight 80.1 kg - Labs CBC & BMP: 05/01/19 05:06 05/01/19 05:06 Labs: Abnormal lab results WBC 11.7 K/mcL (4.3-11.1) H 05/01/19 05:06 RBC 2.84 M/mcL (3.82-4.97) L 05/01/19 05:06 Hgb 8.6 g/dL (11.5-15.4) L 05/01/19 05:06 Hct 28.3 % (35.3-44.9) L 05/01/19 05:06 MCHC 30.4 g/dL (31.6-35.5) L 05/01/19 05:06 RDW 15.7 % (11.5-14.5) H 05/01/19 05:06 MPV 9.2 fL (9.4-12.4) L 04/29/19 14:06 Neutrophils # 9.0 K/mcL (1.6-8.9) H 05/01/19 05:06 Lymphocytes # 0.5 K/mcL (0.6-4.6) L 04/30/19 01:12 PT 14.6 Seconds (9.4-12.1) H 04/30/19 01:12 Carbon Dioxide 22 mEq/L (23-29) L 05/01/19 05:06 BUN 28 mg/dL (8-23) H 05/01/19 05:06 Creatinine 1.71 mg/dL (0.60-1.20) H 05/01/19 05:06 Est GFR ( Amer) 35 (> 60) L 05/01/19 05:06 Est GFR (Non-Af Amer) 29 (> 60) L 05/01/19 05:06 Glucose 152 mg/dL (70-105) H 05/01/19 05:06 Crossmatch See Detail 09/02/19 19:58 Consult Discharge Plan - Plan Referrals: Isabell Dillard MD [Primary Care Provider] -
[2019-05-01 20:48] LABS: ABG Base Excess -1 mEq/L (-2 to 3); ABG HCO3 23 mEq/L (21-27); ABG Oxygen Saturation 93 % (95-98); ABG PCO2 35 mmHg (35-45); ABG PH 7.42 pH Units (7.32-7.45); ABG PO2 66 mmHg (85-104); ABG TCO2 24 mEq/L (20-26)
[2019-05-02] MEDS: *HR* OxyCODONE/APAP 5/325 TABLET PO PRN ×2 (01:05→14:11)
[2019-05-02 04:35] LABS: Basophils # 0.1 K/mcL (0.0-0.2); Basophils % 0.7 %; Eosinophils # 0.3 K/mcL (0.0-0.6); Eosinophils % 2.9 %; Hemoglobin 7.8 g/dL (11.5-15.4); Immature Granulocytes % 0.4 % (0-4); Lymphocytes # 1.1 K/mcL (0.6-4.6); Lymphocytes % 11.6 %; Mean Corpuscular HGB Conc 31.2 g/dL (31.6-35.5); Mean Corpuscular Hemoglobin 30.2 pg (28.0-33.3); Mean Corpuscular Volume 96.9 fL (83.0-100.0); Mean Platelet Volume 9.6 fL (9.4-12.4); Monocytes # 0.8 K/mcL (0.0-1.3); Monocytes % 8.4 %; Neutrophils # 7.4 K/mcL (1.6-8.9); Platelet Count 213 K/mcL (140-400); Red Blood Count 2.58 M/mcL (3.82-4.97); Red Cell Distribution Width 15.7 % (11.5-14.5); White Blood Count 9.7 K/mcL (4.3-11.1)
[2019-05-02 04:56] LABS: Calcium 8.3 mg/dL (8.6-10.3); Potassium 4.3 mEq/L (3.5-5.1)
[2019-05-02] MEDS: amLODIPine 5 MG TABLET PO SCH (10:21)
[2019-05-02] MEDS: Mesalamine 250 MG CAPSULE.ER PO SCH (10:21)
[2019-05-02] MEDS: Metoprolol XL (24 HR) Succ 25 MG TAB.ER.24H PO SCH (10:21)
[2019-05-02] MEDS: Furosemide 40 MG TABLET PO SCH (10:21)
[2019-05-02] MEDS: Aspirin Enteric Coated 81 MG Tablet PO SCH (10:21)
--- NOTE | 2019-05-02 10:56 | Discharge Summary ---
Orders not resulted at time of discharge: Pending orders 05/01/19 11:47 Urinalysis Reflex Cult & Micro [URIN] Stat Date of Encounter: 05/02/19 Time of Encounter: 10:55 - Discharge Diagnosis (1) Fracture, intertrochanteric, right femur Status: Acute Qualifiers: Encounter type: initial encounter Fracture type: closed Fracture alignment: displaced Qualified Code(s): S72.141A - Displaced intertrochanteric fracture of right femur, initial encounter for closed fracture (2) HTN (hypertension) Status: Chronic (3) Ulcerative colitis Status: Chronic Qualifiers: Ulcerative colitis location: unspecified ulcerative colitis location Digestive disease complication type: unspecified complication Qualified Code(s): K51.919 - Ulcerative colitis, unspecified with unspecified comp lications (4) Atrial fibrillation Status: Chronic Qualifiers: Atrial fibrillation type: paroxysmal Qualified Code(s): I48.0 - Paroxysmal atrial fibrillation (5) DVT prophylaxis Status: Acute (6) Pre-diabetes Status: Acute (7) CKD (chronic kidney disease) Status: Chronic Qualifiers: Chronic kidney disease stage: stage 3 (moderate) Qualified Code(s): N18.3 - Chronic kidney disease, stage 3 (moderate) Hospital course: Ms. Beltran is a 83 year old female - Time Spent with Patient Total time spent providing and/or coordinating discharge services: - Discharge Medications Prescriptions: No Action Mesalamine [Apriso] 0.75 gm PO QAM Omeprazole [PriLOSEC] 20 mg PO QAM Furosemide [Lasix] 40 mg PO QAM Acetaminophen [Tylenol] 1,000 mg PO 1-2XD PRN PRN Reason: Pain Potassium Chloride [K-Tab ER] 20 meq PO DAILY Metoprolol Succinate 25 mg PO QAM Aspirin Enteric Coated [Aspirin EC] 81 mg PO QAM Lisinopril [Zestril] 40 mg PO QAM Atorvastatin [Lipitor] 80 mg PO HS 30 Days #30 tablet amLODIPine [Norvasc] 5 mg PO DAILY #30 tablet Paroxetine [Paxil] 20 mg PO DAILY cloNIDine HCl [CloNIDine HCl] 0.1 mg PO ONCE PRN #60 tablet PRN Reason: Blood Pressure Rivaroxaban [Xarelto] 15 mg PO 1700 #30 tablet Home Medications: Acetaminophen [Tylenol] 1,000 mg PO 1-2XD PRN 09/11/15 [History] Furosemide [Lasix] 40 mg PO QAM 09/11/15 [History] Mesalamine [Apriso] 0.75 gm PO QAM 09/11/15 [History] Omeprazole [PriLOSEC] 20 mg PO QAM 09/11/15 [History] Potassium Chloride [K-Tab ER] 20 meq PO DAILY 05/31/16 [History] Metoprolol Succinate 25 mg PO QAM 07/28/17 [History] Aspirin Enteric Coated [Aspirin EC] 81 mg PO QAM 03/01/19 [History] Lisinopril [Zestril] 40 mg PO QAM 03/01/19 [History] Atorvastatin [Lipitor] 80 mg PO HS 30 Days #30 tablet 03/05/19 [Rx] amLODIPine [Norvasc] 5 mg PO DAILY #30 tablet 03/05/19 [Rx] Rivaroxaban [Xarelto] 15 mg PO 1700 #30 tablet 04/05/19 [Rx] cloNIDine HCl [CloNIDine HCl] 0.1 mg PO ONCE PRN #60 tablet 04/05/19 [Rx] Paroxetine [Paxil] 20 mg PO DAILY 04/29/19 [History] Allergies/Adverse Reactions: Allergy/AdvReac Type Severity Reaction Status Date / Time ampicillin Allergy Hives Verified 03/01/19 10:05 morphine AdvReac Hallucinati Verified 03/01/19 10:05 ng nitrofurantoin AdvReac Gastrointestinal Verified 03/22/19 09:26 [From Macrobid] Upset Date of admission: 04/29/19 17:00 Primary care physician: Isabell Dillard Consults: 04/29/19 15:28 Consult to Orthopedic Surgery [CONS] Stat Consulting Provider: Orthopedic and Sports Medicine Reason for Consult: R hip fracture Call Completed: Yes 04/29/19 18:24 Consult to Pastoral Services [CONS] Routine Comment: Consult to Vice President Business Development [CONS] Routine Reason for SW Consult: discharge planning 04/29/19 23:51 Consult to Occupational Therapy [CONS] Routine Comment: Evaluate, develop and implement POC Reason for Consult: ADL Does patient have active BEDREST order?: No Is patient medically & hemodynamically stable?: Yes Consult to Physical Therapy [CONS] Routine Comment: Evaluate, develop and implement POC Reason for Consult: Hip Fx Does patient have active BEDREST order?: No Is patient medically & hemodynamically stable?: Yes - Constitutional Vitals: Temp Pulse Resp BP Pulse Ox 98.5 F 98 16 129/74 96 05/02/19 06:51 05/02/19 06:51 05/02/19 06:51 05/02/19 06:51 05/02/19 06:51 General appearance: Present: cooperative, mild distress, A&O X 3, answers questions appropriately - Discharge Instructions Follow Up With: Isabell Dillard MD [Primary Care Provider] -
[2019-05-02] MEDS: Acetaminophen 325 MG TABLET PO PRN (11:55)
[2019-05-02 12:48] LABS: Hematocrit 29.3 % (35.3-44.9); Hemoglobin 8.9 g/dL (11.5-15.4)
[2019-05-02 13:11] LABS: Bilirubin,Urine Negative (Negative); Blood,Urine Moderate (Negative); Clarity,Urine Cloudy (Clear); Color,Urine Yellow (Yellow); Glucose,Urine (UA) Normal (Normal); Ketones,Urine Negative (Negative); Leukocyte Esterase,Urine Moderate (Negative); Nitrite,Urine Negative (Negative); Protein,Urine 30 mg/dL (Neg-Trace); Specific Gravity,Urine 1.018 (1.010-1.025); Urobilinogen,Urine Normal (Normal)
[2019-05-02 13:11] LABS: Albumin 3.5 g/dL (3.5-5.7); Albumin/Globulin Ratio 1.2 (1.1-2.2); Bilirubin,Total 0.5 mg/dL (0.3-1.0); Calcium 8.7 mg/dL (8.6-10.3); Globulin 2.9 g/dL (2.4-3.5); Potassium 4.4 mEq/L (3.5-5.1); Total Protein 6.4 g/dL (6.4-8.9)
[2019-05-02 13:14] LABS: Squamous Epithelial Cell,Urine Many per lpf (None-Few); WBC,Urine 50-100 per hpf (0-3)
[2019-05-02 13:44] LABS: Bacteria,Urine Few per hpf (None-Few); RBC,Urine 0-3 per hpf (0-3); Yeast,Urine Moderate per hpf (None Seen)
--- NOTE | 2019-05-02 15:42 | Internal Med Progress Note ---
<Chantal Martin - Last Filed: 05/02/19 15:56> Hospitalist Progress Note - Encounter Date of Encounter: 05/02/19 - Exam Vitals: Temp Pulse Resp BP Pulse Ox 97.9 F 81 18 111/71 97 05/02/19 11:59 05/02/19 11:59 05/02/19 11:59 05/02/19 11:59 05/02/19 11:59 - Time Spent with Patient Total time spent is greater than 50% in coordination of care (as documented) at patient's floor/unit and/or counseling patient: Internal Medicine: Result - Labs CBC & Chem 7: 05/02/19 12:21 05/02/19 12:21 Labs: Short CBC 05/02/19 05/02/19 Range/Units 04:04 12:21 WBC 9.7 (4.3-11.1) K/mcL Hgb 7.8 L 8.9 L (11.5-15.4) g/dL Hct 25.0 L 29.3 L (35.3-44.9) % Plt Count 213 (140-400) K/mcL Neutrophils # 7.4 (1.6-8.9) K/mcL BMP 05/02/19 05/02/19 04:04 12:21 Sodium 138 138 Potassium 4.3 4.4 Chloride 105 104 Carbon Dioxide 21 L 24 BUN 31 H 30 H Creatinine 1.47 H 1.53 H Glucose 142 H 193 H Calcium 8.3 L 8.7 Liver Function 05/02/19 Range/Units 12:21 Total Bilirubin 0.5 (0.3-1.0) mg/dL AST 15 (13-39) Units/L ALT 10 (7-52) Units/L Alkaline Phosphatase 66 (34-104) Units/L Albumin 3.5 (3.5-5.7) g/dL Urine 05/01/19 Range/Units 12:59 Urine Color Yellow (Yellow) Urine Clarity Cloudy A (Clear) Urine pH 5.0 (5.0-8.0) pH Units Ur Specific Ruby 1.018 (1.010-1.025) Urine Protein 30 H (Neg-Trace) mg/dL Urine Glucose (UA) Normal (Normal) mg/dL - ABG Interpretation ABG results: ABG ABG pH 7.42 pH Units (7.32-7.45) 05/01/19 20:45 ABG pCO2 35 mmHg (35-45) 05/01/19 20:45 ABG pO2 66 mmHg (85-104) L 05/01/19 20:45 ABG O2 Saturation 93 % (95-98) L 05/01/19 20:45 PT/INR, D-dimer PT 14.6 Seconds (9.4-12.1) H 04/30/19 01:12 Consult Discharge Plan - Plan Referrals: Isabell Dillard MD [Primary Care Provider] - - Attending Attestation I examined this patient and my medical decision-making was reviewed with the Resident Physician Dr mccann. I agree with the documented findings, disposition and treatment plan as described except to the extent set forth below. Ms Beltran is currently admitted for acute R hip fracture s/p ORIF. awake, resting in bed, mildly confused as to why she is here, denies pain, denies abd pain, dysuria, fevers or chills. no sob or cough. no family present gen- alert, awake,appears stated age cv- reg rate and rhythm, normal s1,s2 lungs- ctabl, normal resp effort abd- soft, non tender, non distended, + bs skin- right hip dressing c/d/i, no hematoma or ecchymosis neuro- AAOxperson, place, season and year, not date, and does not recall why admitted CN grossly intact, moves all ext without focal deficit, strength 5/5 throughout 1. R hip fracture - s/p ORIF- dispo will be inpt rehab, fu with ortho outpt 2. RICARDO - hold acei avoid nephrotoxins,UA suspicious for infection, repeat creat in am 3. chronic stable HFpEF- cont home meds 4. Acute on chronic post operative blood loss anemia- hgb now stabilized on her home AC, hemodynamically stable, no hematoma post op, cont to monitor while inpt 5. Midl confusion 2/2 suspected UTI- begin IV rocephin, ucx pending further dx and plan as noted by resident hopeful for dc to rehab in am <Luis Carlos Mccann S - Last Filed: 05/02/19 18:30> Hospitalist Progress Note - Encounter Date of Encounter: 05/02/19 Time of Encounter: 10:00 - Subjective Interval History: Mrs. Beltran is a 83-year-old female, who is referred to our service after presenting to the ED with a hip fracture. She was on [employer] L to, and was deemed higher risk for significant bleeding if left unrepaired, and so she u nderwent urgent repair of her peritrochanteric hip fracture on 04/29. She is postop day 3. Yesterday, she was noted to be significantly more confused than the day prior, today her confusion continues, however she seems significantly less agitated today than she did yesterday. She reports that she is feeling better. She states that she needs to get up. When asked the date, she is able to me the month is April, she knows her name, but states that we are in [facility]. She recognized me only after reminding her of my name today. Conversations with other healthcare providers showed similar results, however there is significant waxing and waning of her orientation to both time and place. She denies any chest pain, trouble breathing, belly pain, nausea, vomiting, diarrhea, constipation, new numbness or tingling anywhere, weakness. - Exam Vitals: Temp Pulse Resp BP Pulse Ox 97.9 F 81 18 111/71 97 05/02/19 11:59 05/02/19 11:59 05/02/19 11:59 05/02/19 11:59 05/02/19 11:59 Exam: Gen: Awake and alert, not well oriented, well-nourished, well kempt - yesterday's mild acute distress resolved, Head: Normocephalic, atraumatic Eyes: EOMI, no scleral icterus ENT: Mucous membranes moist, no oropharyngeal erythema CV: S1-S2 present, irregularly irregular at a rate of about 65, no murmurs rubs or gallops Pulm: CTAB, not tachypneic, no respiratory distress, no increased work of br eathing Abd: Soft, nontender to palpation, nondistended, no rebound or guarding. Bowel sounds present EXT: Extremity exam somewhat limited by patient's mental status. right upper extremity edema unchanged from yesterday, trace bilateral lower extremity edema, no distal cyanosis or pallor. Skin: Warm, dry, intact, Neuro: Cranial nerves II-XII grossly intact, no new focal nurologic deficits Surgical site: surgical dressings in place on R lateral knee and hip appear clean and dry Psych: RECALLED FROM YESTERDAY: * {Overall patient is confused and slightly inattentive, most notable change fro m yesterday is non-linear, illogical thought. she also has very poor insight. she does not appear to be responding to internal stimuli or experiencing visual or auditory hallucinations.} TODAY * patient is still confused, continues to have delusional thoughts, which seem to have a paranoid nature. specifically, family reports she has stated "people are trying to kill me" "they're throwing buckets of water at me" "they are trying to take me away" "do not let them get me" * Attention and orientation wax and wane. * Overall, patient is significantly more somnolent today. Appeared sleepy on initial examination, was sound asleep on repeat examination later in the afternoon. * She remains redirectable, and answers most questions appropriately. - Assessment and Plan (1) Fracture, intertrochanteric, right femur Current Visit: Yes Status: Acute Assessment and Plan: Patient's [facility] requested to talk with me. we talked at length about the patient's current mental state, our findings of UTI, and our plan to treat with antibiotics with anticipated resolution of her altered status. We discussed her injury, how it was repaired, and why she remains in significant pain. we disc ussed the plan to transfer the patient to a SNF for ongoing rehabilitation of her hip repair. pain management adequate at this time surgical sites appear clean and dry neurovascular status remains unchanged (2) HTN (hypertension) Current Visit: No Status: Chronic Assessment and Plan: patient's BP has been low for her, with systolics in the 100-110's this may represent overtreatment of HTN De-facto hypotension may be contributing to her altered mental status * hold amlodipine tomorrow * continue BP checks per schedule (3) Ulcerative colitis Current Visit: No Status: Chronic (4) Atrial fibrillation Current Visit: Yes Status: Chronic (5) DVT prophylaxis Current Visit: No Status: Acute Assessment and Plan: Patient taking xarelto (6) Pre-diabetes Current Visit: No Status: Acute Assessment and Plan: continue to monitor BMP with am labs (7) CKD (chronic kidney disease) Current Visit: No Status: Chronic Assessment and Plan: continue to monitor kidney function with AM labs. * avoid nephrotoxic agents * renal dosing of medications administered (8) UTI (urinary tract infection) Current Visit: No Status: Acute Assessment and Plan: urinary tract infection was identified after straight cath was obtained today, which revealed a UTI. * We started the patient on ceftriaxone, in spite of her allergy to ampicillin after the following considerations: * her poor kidney function did not make her a candidate to receive Bactrim * Her allergy to macrobid excludes that agent * Ciprofloxacin was considered, but can have serious adverse effects in patients her age * In discussion with the Pharmacist, cross reactivity between ampicillin and ceftriaxone is only 10%, and her allergy to ampicillin was relatively mild (hives) * The patient is remaining inpatient for the immediate future, where she will be monitored by nursing staff * we simultaneously prescribed diphenhydramine to be given PRN for any reaction to the ceftriaxone DVT Prophylaxis: Patient taking Xarelto - Summary of Assessment and Plan Summary of Assessment and Plan: Continue pain management plan PT/OT as prescribed by ortho Continue regular diet Rocephin for UTI Possible SNF transfer tomorrow - Time Spent with Patient Total time spent is greater than 50% in coordination of care (as documented) at patient's floor/unit and/or counseling patient: Internal Medicine: Result - Labs CBC & Chem 7: 05/02/19 12:21 05/02/19 12:21 Labs: Short CBC 05/02/19 05/02/19 Range/Units 04:04 12:21 WBC 9.7 (4.3-11.1) K/mcL Hgb 7.8 L 8.9 L (11.5-15.4) g/dL Hct 25.0 L 29.3 L (35.3-44.9) % Plt Count 213 (140-400) K/mcL Neutrophils # 7.4 (1.6-8.9) K/mcL BMP 05/02/19 05/02/19 04:04 12:21 Sodium 138 138 Potassium 4.3 4.4 Chloride 105 104 Carbon Dioxide 21 L 24 BUN 31 H 30 H Creatinine 1.47 H 1.53 H Glucose 142 H 193 H Calcium 8.3 L 8.7 Liver Function 05/02/19 Range/Units 12:21 Total Bilirubin 0.5 (0.3-1.0) mg/dL AST 15 (13-39) Units/L ALT 10 (7-52) Units/L Alkaline Phosphatase 66 (34-104) Units/L Albumin 3.5 (3.5-5.7) g/dL Urine 05/01/19 Range/Units 12:59 Urine Color Yellow (Yellow) Urine Clarity Cloudy A (Clear) Urine pH 5.0 (5.0-8.0) pH Units Ur Specific Ruby 1.018 (1.010-1.025) Urine Protein 30 H (Neg-Trace) mg/dL Urine Glucose (UA) Normal (Normal) mg/dL - ABG Interpretation ABG results: ABG ABG pH 7.42 pH Units (7.32-7.45) 05/01/19 20:45 ABG pCO2 35 mmHg (35-45) 05/01/19 20:45 ABG pO2 66 mmHg (85-104) L 05/01/19 20:45 ABG O2 Saturation 93 % (95-98) L 05/01/19 20:45 PT/INR, D-dimer PT 14.6 Seconds (9.4-12.1) H 04/30/19 01:12 <Luis Carlos Mccann S - Last Filed: 05/02/19 18:30> (2) HTN (hypertension) Qualifiers: Hypertension type: essential hypertension Qualified Code(s): I10 - Essential (primary) hypertension (3) Ulcerative colitis Qualifiers: Ulcerative colitis location: unspecified ulcerative colitis location Digestive disease complication type: unspecified complication Qualified Code(s): K51.919 - Ulcerative colitis, unspecified with unspecified complications (4) Atrial fibrillation Qualifiers: Atrial fibrillation type: paroxysmal Qualified Code(s): I48.0 - Paroxysmal atrial fibrillation (7) CKD (chronic kidney disease) Qualifiers: Chronic kidney disease stage: stage 3 (moderate) Qualified Code(s): N18.3 - Chronic kidney disease, stage 3 (moderate) (8) UTI (urinary tract infection) Qualifiers: Urinary tract infection type: site unspecified Hematuria presence: without hematuria Qualified Code(s): N39.0 - Urinary tract infection, site not specified
[2019-05-02] MEDS: *HR* Rivaroxaban 15 MG TABLET PO SCH (16:39)
[2019-05-02] MEDS: cefTRIAXone 1,000 MG in Water for inj. (sterile) 10 ML IVP SCH (16:39)
[2019-05-02] MEDS: Ringers Solution, Lactated 1,000 ML IVC SCH ×2 (16:46→16:47)
--- NOTE | 2019-05-02 17:54 | Orthopedics Progress Note ---
Date of Encounter: 05/02/19 Time of Encounter: 17:52 Subjective Principal diagnosis: Peritrochanteric fracture right hip Interval history: 04/30/2019. Patient is postop day #1 after having had a long intramedullary nail for a peritrochanteric fracture of the right hip. Patient is doing much better. She is in much better spirits. Pain is markedly improved from preop. Vital signs are stable. Patient is afebrile. Dressings are clean dry and intact. Hemoglobin is 9.9. Platelet count is normal. PTT is 14.6. Impression: POD #1 intramedullary nailing right hip/femur fracture, orthopedic status stable. Recommendation: Patient is stable to continue her rehabilitation program. At this time want to continue with touchdown weightbearing only. Work on mobilizat ion exercises and ambulation training. 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 05/01/2019. Patient POD #2 IM nailing right hip fracture. Patient is somewhat more confused than baseline. Vital signs are stable. Afebrile. Dressings clean and dry. Hemoglobin has dropped to 8.6. White blood cell count is stable at 11.7. Platelet count normal at 259. Impression: POD #2 IM nailing right hip Recommendation: Patient is to continue with rehabilitation with touchdown weightbearing only on the right lower extremity. Orthopedic status is stable for discharge when medically appropriate. We will need follow-up with me in approximately 2-3 weeks'. As long as her dressings are clean dry and intact she can shower and will not require any incision care. care. 05/02/2019. Patient POD #3 IM nailing right hip. Patient much improved today. More cognizant of her hip fracture and the pain associated with it. Vital signs are stable. Patient is afebrile. Dressings remain clean dry and intact. Hemoglobin is improved slightly to 8.9. White blood cell count is normal. Platelet count is normal. Impression: POD #3 IM nailing right hip Recommendations: Continue with plan of care as outlined. Touchdown weightbearing only on the right lower extremity. No incision care is required. Patient can shower with intact Bioclusive dressings. We will need follow-up with me in about 2-3 weeks. I will not be available after today. If urgent orthopedic care is needed please contact the orthopedic surgeon production boring machine operator. We will follow up with the patient as an outpatient. Objective Vital signs: Vital Signs Temp Pulse Resp BP Pulse Ox 05/02/19 14:12 97.7 F 87 16 114/68 95 05/02/19 11:59 97.9 F 81 18 111/71 97 05/02/19 06:51 98.5 F 98 16 129/74 96 05/02/19 03:48 98.9 F 108 16 123/76 96 05/02/19 02:17 75 144/82 05/02/19 00:06 98.0 F 99 14 94/67 92 05/01/19 19:51 98.1 F 84 14 101/73 96 Intake and Output 05/02/19 05/02/19 05/02/19 07:59 15:59 23:59 Intake Total 120 / 130 10 / 130 Output Total 250 / 250 Balance -130 / -120 10 / -120 Intake: IV Fluids Rocephin 1,000 MG In Water for inj. (sterile) 10 ML @ 600 mls/ hr IVP DAILY ROMAN Rx#:[id number] Oral 120 / 120 Output: Straight Cath 250 / 250 Other: # Voids 1 # Urine Diapers 1 1 Weight 80.2 kg Patient Weight 05/02/19 23:59 Weight 80.2 kg Incision: clean and dry - Labs CBC & BMP: 05/02/19 12:21 05/02/19 12:21 Labs: Abnormal lab results WBC 11.7 K/mcL (4.3-11.1) H 05/01/19 05:06 RBC 2.58 M/mcL (3.82-4.97) L 05/02/19 04:04 Hgb 8.9 g/dL (11.5-15.4) L 05/02/19 12:21 Hct 29.3 % (35.3-44.9) L 05/02/19 12:21 MCHC 31.2 g/dL (31.6-35.5) L 05/02/19 04:04 RDW 15.7 % (11.5-14.5) H 05/02/19 04:04 MPV 9.2 fL (9.4-12.4) L 04/29/19 14:06 Neutrophils # 9.0 K/mcL (1.6-8.9) H 05/01/19 05:06 Lymphocytes # 0.5 K/mcL (0.6-4.6) L 04/30/19 01:12 PT 14.6 Seconds (9.4-12.1) H 04/30/19 01:12 ABG pO2 66 mmHg (85-104) L 05/01/19 20:45 ABG O2 Saturation 93 % (95-98) L 05/01/19 20:45 Carbon Dioxide 21 mEq/L (23-29) L 05/02/19 04:04 BUN 30 mg/dL (8-23) H 05/02/19 12:21 Creatinine 1.53 mg/dL (0.60-1.20) H 05/02/19 12:21 Est GFR ( Amer) 39 (> 60) L 05/02/19 12:21 Est GFR (Non-Af Amer) 32 (> 60) L 05/02/19 12:21 Glucose 193 mg/dL (70-105) H 05/02/19 12:21 Calcium 8.3 mg/dL (8.6-10.3) L 05/02/19 04:04 Urine Clarity Cloudy (Clear) A 05/01/19 12:59 Urine Protein 30 mg/dL (Neg-Trace) H 05/01/19 12:59 Urine Blood Moderate (Negative) H 05/01/19 12:59 Ur Leukocyte Esterase Moderate (Negative) H 05/01/19 12:59 Urine Microscopic WBC 50-100 per hpf (0-3) H 05/01/19 12:59 Ur Squamous Epith Cells Many per lpf (None-Few) H 05/01/19 12:59 Urine Yeast Moderate per hpf (None Seen) H 05/01/19 12:59 Ur Culture Indicated? YES (NO) A 05/01/19 12:59 Crossmatch See Detail 04/29/19 19:58 Consult Discharge Plan - Plan Referrals: Isabell Dillard MD [Primary Care Provider] -
[2019-05-03 02:03] LABS: Basophils % 0.5 %; Eosinophils # 0.5 K/mcL (0.0-0.6); Eosinophils % 6.1 %; Hematocrit 24.4 % (35.3-44.9); Hemoglobin 7.7 g/dL (11.5-15.4); Immature Granulocytes % 0.4 % (0-4); Lymphocytes % 12.4 %; Mean Corpuscular HGB Conc 31.6 g/dL (31.6-35.5); Mean Corpuscular Hemoglobin 30.3 pg (28.0-33.3); Mean Corpuscular Volume 96.1 fL (83.0-100.0); Mean Platelet Volume 9.7 fL (9.4-12.4); Monocytes # 0.6 K/mcL (0.0-1.3); Monocytes % 7.4 %; Neutrophils # 5.9 K/mcL (1.6-8.9); Platelet Count 211 K/mcL (140-400); Red Blood Count 2.54 M/mcL (3.82-4.97); Red Cell Distribution Width 16.1 % (11.5-14.5); Segmented Neutrophils % 73.2 %; White Blood Count 8.1 K/mcL (4.3-11.1)
[2019-05-03 02:21] LABS: Calcium 8.2 mg/dL (8.6-10.3); Potassium 4.1 mEq/L (3.5-5.1)
[2019-05-03] MEDS: *HR* OxyCODONE/APAP 5/325 TABLET PO PRN (04:55)
[2019-05-03 08:58] LABS: Hematocrit 22.8 % (35.3-44.9); Hemoglobin 7.2 g/dL (11.5-15.4)
--- NOTE | 2019-05-03 08:58 | Discharge Summary ---
<Luis Carlos Mccann S - Last Filed: 05/03/19 13:31> - NOTES TO OUTPATIENT PROVIDER Notes to Outpatient Provider: s/p IM nail for R hip fx. Recheck Hgb daily x3 days to monitor stability. Recheck creatinine 48 hours after transfer to monitor renal function. Urine cultures pending upon d/c, will require follow-up. Dis charged on 250mg ciprofloxacin BID x 7 days for UTI. [place] held today, pts pressures are higher with mental status improved. Consider holding norco unless pt has symptomatic hypertension Orders not resulted at time of discharge: Pending orders 05/01/19 12:59 Culture,Urine [RM] Stat Date of Encounter: 05/03/19 Time of Encounter: 08:57 - Discharge Diagnosis (1) Fracture, intertrochanteric, right femur Priority: Primary Status: Acute Assessment and Plan: S/P intramedullary nailing on 04/29. * Pain is well controlled, however, we are concerned that narcotic pain meds are a possible contibutor to her episodes of AMS - narcotics D/c'd, tylenol for pain control. * no new ecchymosis or evidence of hematoma on examination of the R upper leg * PT/OT to continue at SNF (2) UTI (urinary tract infection) Priority: Secondary Status: Acute Assessment and Plan: patient doing much better after receiving rocephin. reports no UTI symptoms at this time confusion largely resolved * Discharge with Rx for ciprofloxacin 250mg BID x 7 days * recheck kidney function 48 hours after d/c Qualifiers: Urinary tract infection type: site unspecified Hematuria presence: without hematuria Qualified Code(s): N39.0 - Urinary tract infection, site not sp ecified (3) HTN (hypertension) Priority: Secondary Status: Chronic Assessment and Plan: pressures slightly elevated after stopping amlodipine, however, this correlates with her increased mentation. Unclear if higher pressures contributing to improved mentation, as ABX for UTI are a more likely cause. * continue to hold amlodipine while inpatient * resume amlodipine at SNF if pressures are elevated and patient is syptomatic * discontinued PRN clonidine * continue VS checks Qualifiers: Hypertension type: essential hypertension Qualified Code(s): I10 - Essential (primary) hypertension (4) Ulcerative colitis Priority: Secondary Status: Chronic Qualifiers: Ulcerative colitis location: unspecified ulcerative colitis location Dig estive disease complication type: unspecified complication Qualified Code(s): K51.919 - Ulcerative colitis, unspecified with unspecified complications (5) Atrial fibrillation Priority: Secondary Status: Chronic Assessment and Plan: Has had irregularly irregular HR on all exams as inpatient * continue plavix and asa * continue metoprolol for rate control Qualifiers: Atrial fibrillation type: paroxysmal Qualified Code(s): I48.0 - Paroxysmal atrial fibrillation (6) Pre-diabetes Priority: Secondary Status: Chronic Assessment and Plan: mildly elevated glucose while inpatient * follow glucose as outpatient * consider HbA1c measurement * hyperglycemia treatment as PCP feels is appropriate (7) CKD (chronic kidney disease) Priority: Secondary Status: Chronic Assessment and Plan: REnal function stable, but BUN and creat remain elevated suspect elevated labs due to UTI * check creatinine 48 hours after discharge Qualifiers: Chronic kidney disease stage: stage 3 (moderate) Qualified Code(s): N18.3 - Chronic kidney disease, stage 3 (moderate) Hospital course: Ms. Beltran is a 83 year old female with pmh of a-fib, cva with residual R sided deficits, hypertension, hyperlipidemia, diabetes, and CHF who suffered a fall with hip fracture and subsequent surgical repair on 04/29. Her Xarelto was restarted on post-op day 1 with no subsequent signs of hematoma or bleed. Labs have shown an acute on chronic post-op blood loss anemia, and given her slightly unstable hemoglobin, she was transfused 1 unit PRBCs today. On post-op day 2, she was found to be significantly confused and slightly agitated. she was found to have a UTI and started on rocephin. She will be given a 7 day course of ciprofloxacin to take as an outpatient. She is progressing back to her baseline, with only occasional periods of confusion today. Discharge discussed with: patient - Time Spent with Patient Total time spent providing and/or coordinating discharge services: - Discharge Medications Prescriptions: New Acetaminophen [Tylenol] 650 mg PO Q6HR PRN 1 Days #8 tablet PRN Reason: Moderate Pain Ciprofloxacin HCl [Cipro] 250 mg PO BID 7 Days #14 tab Continued Mesalamine [Apriso] 0.75 gm PO QAM Omeprazole [PriLOSEC] 20 mg PO QAM Furosemide [Lasix] 40 mg PO QAM Potassium Chloride [K-Tab ER] 20 meq PO DAILY Metoprolol Succinate 25 mg PO QAM Aspirin Enteric Coated [Aspirin EC] 81 mg PO QAM Lisinopril [Zestril] 40 mg PO QAM Atorvastatin [Lipitor] 80 mg PO HS 30 Days #30 tablet amLODIPine [Norvasc] 5 mg PO DAILY #30 tablet Paroxetine [Paxil] 20 mg PO DAILY Rivaroxaban [Xarelto] 15 mg PO 1700 #30 tablet Changed Acetaminophen [Tylenol] 1,000 mg PO Q6HR PRN 1 Days #4 tablet PRN Reason: Severe Pain Discontinued cloNIDine HCl [CloNIDine HCl] 0.1 mg PO ONCE PRN #60 tablet PRN Reason: Blood Pressure Home Medications: Furosemide [Lasix] 40 mg PO QAM 09/11/15 [History] Mesalamine [Apriso] 0.75 gm PO QAM 09/11/15 [History] Omeprazole [PriLOSEC] 20 mg PO QAM 09/11/15 [History] Potassium Chloride [K-Tab ER] 20 meq PO DAILY 05/31/16 [History] Metoprolol Succinate 25 mg PO QAM 07/28/17 [History] Aspirin Enteric Coated [Aspirin EC] 81 mg PO QAM 03/01/19 [History] Lisinopril [Zestril] 40 mg PO QAM 03/01/19 [History] Atorvastatin [Lipitor] 80 mg PO HS 30 Days #30 tablet 03/05/19 [Rx] amLODIPine [Norvasc] 5 mg PO DAILY #30 tablet 03/05/19 [Rx] Rivaroxaban [Xarelto] 15 mg PO 1700 #30 tablet 04/05/19 [Rx] Paroxetine [Paxil] 20 mg PO DAILY 04/29/19 [History] Acetaminophen [Tylenol] 1,000 mg PO Q6HR PRN 1 Days #4 tablet 05/03/19 [Rx] Acetaminophen [Tylenol] 650 mg PO Q6HR PRN 1 Days #8 tablet 05/03/19 [Rx] Ciprofloxacin HCl [Cipro] 250 mg PO BID 7 Days #14 tab 05/03/19 [Rx] Allergies/Adverse Reactions: Allergy/AdvReac Type Severity Reaction Status Date / Time ampicillin Allergy Hives Verified 03/01/19 10:05 morphine AdvReac Hallucinati Verified 03/01/19 10:05 ng nitrofurantoin AdvReac Gastrointestinal Verified 03/22/19 09:26 [From Macrobid] Upset Date of admission: 04/29/19 17:00 Primary care physician: Isabell Dillard Consults: 04/29/19 15:28 Consult to Orthopedic Surgery [CONS] Stat Consulting Provider: Orthopedic and Sports Medicine Reason for Consult: R hip fracture Call Completed: Yes 04/29/19 18:24 Consult to Pastoral Services [CONS] Routine Comment: Consult to Publications Manager [CONS] Routine Reason for SW Consult: discharge planning 04/29/19 23:51 Consult to Occupational Therapy [CONS] Routine Comment: Evaluate, develop and implement POC Reason for Consult: ADL Does patient have active BEDREST order?: No Is patient medically & hemodynamically stable?: Yes Consult to Physical Therapy [CONS] Routine Comment: Evaluate, develop and implement POC Reason for Consult: Hip Fx Does patient have active BEDREST order?: No Is patient medically & hemodynamically stable?: Yes Discharging clinician: Luis Carlos Mccann Anticipated date of discharge: 05/03/19 - Constitutional Vitals: Temp Pulse Resp BP Pulse Ox 98.4 F 81 16 145/83 93 05/03/19 07:35 05/03/19 07:35 05/03/19 07:35 05/03/19 07:35 05/03/19 07:35 General appearance: Present: cooperative, mild distress, A&O X 3, answers questions appropriately Exam: Gen: Awake and alert, well oriented, well-nourished, well kempt, Head: Normocephalic, atraumatic Eyes: EOMI, no scleral icterus ENT: Mucous membranes moist, no oropharyngeal erythema CV: S1-S2 present, irregularly irregular at a rate of about 75, no murmurs rubs or gallops Pulm: CTAB, not tachypneic, no respiratory distress, no increased work of breathing Abd: Soft, nontender to palpation, nondistended, no rebound or guarding. Bowel sounds present EXT: right upper extremity edema unchanged, trace bilateral lower extremity edema, no distal cyanosis or pallor. Skin: Warm, dry, intact, Neuro: Cranial nerves II-XII grossly intact, no new focal nurologic deficits Surgical site: surgical dressings in place on R lateral knee and hip appear clean and dry, no evidence of new ecchymosis or hematoma formation Psych: RECALLED FROM YESTERDAY: * {patient is still confused, continues to have delusional thoughts, which seem to have a paranoid nature. specifically, family reports she has stated "people are trying to kill me" "they're throwing buckets of water at me" "they are trying to take me away" "do not let them get me" * Attention and orientation wax and wane. * Overall, patient is significantly more somnolent today. Appeared sleepy on initial examination, was sound asleep on repeat examination later in the afternoon. * She remains redirectable, and answers most questions appropriately. TODAY * Patient's confusion has largely resolved. she is orientedx3, and answers questions appropriately. she - Patient Status Disposition: Transfer SNF Condition: Fair Functional capacity at discharge: wheelchair bound Overall status at discharge: patient is progressing back to baseline - Discharge Instructions Instructions: Urinary Tract Infection in Women (DC), Fall Prevention (DC) Follow Up With: Isabell Dillard MD [Primary Care Provider] - Beny Francis DO [Non-Partnered Physician] - Additional Instructions: Touchdown weight bearing only on the right lower extremity. No incision care is required. Patient can shower with intact Bioclusive dressings. Dr Francis follow up in 2-3 weeks - Diet and Activity Activity: as per physical therapy Diet: advance to your usual diet <Chantal Martin - Last Filed: 05/03/19 15:30> Orders not resulted at time of discharge: Pending orders 05/01/19 12:59 Culture,Urine [RM] Stat Date of Encounter: 05/03/19 Hospital course: Ms. Beltran is a 83 year old female - Time Spent with Patient Total time spent providing and/or coordinating discharge services: Date of admission: 04/29/19 17:00 Primary care physician: Isabell Dillard Consults: 04/29/19 15:28 Consult to Orthopedic Surgery [CONS] Stat Consulting Provider: Orthopedic and Sports Medicine Reason for Consult: R hip fracture Call Completed: Yes 04/29/19 18:24 Consult to Pastoral Services [CONS] Routine Comment: Consult to Publications Manager [CONS] Routine Reason for SW Consult: discharge planning 04/29/19 23:51 Consult to Occupational Therapy [CONS] Routine Comment: Evaluate, develop and implement POC Reason for Consult: ADL Does patient have active BEDREST order?: No Is patient medically & hemodynamically stable?: Yes Consult to Physical Therapy [CONS] Routine Comment: Evaluate, develop and implement POC Reason for Consult: Hip Fx Does patient have active BEDREST order?: No Is patient medically & hemodynamically stable?: Yes - Constitutional Vitals: Temp Pulse Resp BP Pulse Ox 97.8 F 93 14 120/75 96 05/03/19 13:47 05/03/19 13:47 05/03/19 13:47 05/03/19 13:47 05/03/19 13:47 - Attending Attestation I examined this patient and my medical decision-making was reviewed with the R esident Physician Dr mccann. I agree with the documented findings, disposition and treatment plan as described except to the extent set forth below. Ms Beltran is currently admitted for acute R hip fracture s/p ORIF. She is medically cleared for DC to [place] [facility]. awake, resting in bed, very pleasant, completely oriented, happy to get to go to [place]. No le pain. admits she was having bladder pain and dysuria. no fevers or chills. no cp, sob or dizziness. later in morning post opaite she had confusion, further dosing held and on re eval this afternoon she is again oriented and to baseline mental status gen- alert, awake,appears stated age cv- reg rate and rhythm, normal s1,s2, no le edema lungs- ctabl, normal resp effort skin- right hip dressing c/d/i, no hematoma or ecchymosis neuro- AAOxperson, place, year, not date, CN grossly intact, moves all ext without focal deficit, strength 5/5 throughout 1. R hip fracture - s/p ORIF- inpt rehab, fu with Dr Francis 2-3 weeks, weight bearing status included in referral 2. RICARDO improved, in setting of suspected UTI- may resume august emeds on dc and fu repeat creat in next days 3. chronic stable HFpEF- cont home meds 4. Acute on chronic post operative blood loss anemia- hgb slow down trend throughout admit, down to 7.2, given her afib hx will transfuse 1 unit prbc prior to transfer to [facility], hemodynamically stable, no hematoma post op, cont to monitor at [facility] for any further changes 5. Suspected UTI Mild confusion 2/2 suspected UTI, now clear she also gets confused post opiates - prior cxs mclean sensitive, transitioned to oral med, request [facility] to please follow cx and adjust as necessary, avoid opiates further dx and plan as noted by resident time spent on dc 50 min
[2019-05-03] MEDS: cefTRIAXone 1,000 MG in Water for inj. (sterile) 10 ML IVP SCH (09:38)
[2019-05-03] MEDS: Mesalamine 250 MG CAPSULE.ER PO SCH (09:38)
[2019-05-03] MEDS: Metoprolol XL (24 HR) Succ 25 MG TAB.ER.24H PO SCH (09:38)
[2019-05-03] MEDS: Aspirin Enteric Coated 81 MG Tablet PO SCH (09:38)
[2019-05-03] MEDS: Acetaminophen 325 MG TABLET PO PRN (09:54)
--- NOTE | 2019-05-03 09:56 | Physician Discharge Referral ---
<Luis Carlos Gibbs S - Last Filed: 05/03/19 14:20> [facility] Luis [facility] Gibbs Provider in Charge after Transfer: PCP Institutional Level of Care: Skilled - Diagnosis (1) Fracture, intertrochanteric, right femur Priority: Primary Status: Acute (2) HTN (hypertension) Priority: Secondary Status: Chronic (3) Ulcerative colitis Priority: Secondary Status: Chronic (4) Atrial fibrillation Priority: Secondary Status: Chronic (5) DVT prophylaxis Priority: Secondary Status: Acute (6) Pre-diabetes Priority: Secondary Status: Chronic (7) CKD (chronic kidney disease) Priority: Secondary Status: Chronic (8) UTI (urinary tract infection) Priority: Secondary Status: Acute Prognosis: Fair Aware of Diagnosis: Patient Aware of Prognosis: Patient - Transfer Medications Prescriptions: Ciprofloxacin HCl [Cipro] 250 mg PO BID 7 Days #14 tab Acetaminophen [Tylenol] 650 mg PO Q6HR PRN 1 Days #8 tablet PRN Reason: Moderate Pain Acetaminophen [Tylenol] 1,000 mg PO Q6HR PRN 1 Days #4 tablet PRN Reason: Severe Pain Home Medications: Furosemide [Lasix] 40 mg PO QAM 09/11/15 [History] Mesalamine [Apriso] 0.75 gm PO QAM 09/11/15 [History] Omeprazole [PriLOSEC] 20 mg PO QAM 09/11/15 [History] Potassium Chloride [K-Tab ER] 20 meq PO DAILY 05/31/16 [History] Metoprolol Succinate 25 mg PO QAM 07/28/17 [History] Aspirin Enteric Coated [Aspirin EC] 81 mg PO QAM 03/01/19 [History] Lisinopril [Zestril] 40 mg PO QAM 03/01/19 [History] Atorvastatin [Lipitor] 80 mg PO HS 30 Days #30 tablet 03/05/19 [Rx] amLODIPine [Norvasc] 5 mg PO DAILY #30 tablet 03/05/19 [Rx] Rivaroxaban [Xarelto] 15 mg PO 1700 #30 tablet 04/05/19 [Rx] Paroxetine [Paxil] 20 mg PO DAILY 04/29/19 [History] Acetaminophen [Tylenol] 1,000 mg PO Q6HR PRN 1 Days #4 tablet 05/03/19 [Rx] Acetaminophen [Tylenol] 650 mg PO Q6HR PRN 1 Days #8 tablet 05/03/19 [Rx] Ciprofloxacin HCl [Cipro] 250 mg PO BID 7 Days #14 tab 05/03/19 [Rx] Allergies/Adverse Reactions: Allergy/AdvReac Type Severity Reaction Status Date / Time ampicillin Allergy Hives Verified 03/01/19 10:05 morphine AdvReac Hallucinati Verified 03/01/19 10:05 ng nitrofurantoin AdvReac Gastrointestinal Verified 03/22/19 09:26 [From Macrobid] Upset - Respiratory Orders None Smoking Cessation: Smoking cessation has been advised. For more information, call the [employer] at 2-111-EBJX-NOW. - Lab Orders Lab Orders: CBC (recheck Hgb daily x3 days to ensure stability), Other (include drug levels w/frequency) (BMP to recheck kidney function 48 hours after transfer) - Ancillary Orders May use pressure relief devices daily prn - Advance Directives Code Status: Full Code - Mobility Orders Other (per PT/OT recommendations) - Rehabiliation Orders Rehab Potential: Fair (Hip Fx with pre-existing ipsilateral neuromotor deficits from CVA) Rehab Orders: Evaluation for Physical Therapy, Evaluation for Occupational Therapy - Diet Orders Regular CERTIFICATION: I certify that the transfer of the above named patient to an Extended Care Facility is necessary for the continuing treatment of the diagnosis listed. The above information is true and accurate reflection of patient's current condition. Confidential - Redisclosure prohibited without a patient's written consent. <Chantal Martin - Last Filed: 05/03/19 15:24> - Diagnosis (1) Fracture, intertrochanteric, right femur Priority: Primary Status: Resolved (2) Atrial fibrillation Priority: Secondary Status: Chronic (3) Acute renal insufficiency Priority: Secondary Status: Acute (4) CVA (cerebral vascular accident) Priority: Secondary Status: Chronic (5) Hypertension Priority: Secondary Status: Chronic (6) UTI (urinary tract infection) Priority: Secondary Status: Acute - Respiratory Orders Smoking Cessation: Smoking cessation has been advised. For more information, call the [employer] at 1-307-ECIA-NOW. - Mobility Orders Other (Touchdown weightbearing only on the right lower extremity.) - Treatments Skin tear care topically daily PRN per policy List/Other: No incision care is required. Patient can shower with intact Bioclusive dressings. - Diet Orders No Added Salt (IRINA) House Supplement per Dietary: Ensure Enlive BID CERTIFICATION: I certify that the transfer of the above named patient to an Extended Care Facility is necessary for the continuing treatment of the diagnosis listed. The above information is true and accurate reflection of patient's current condition. Confidential - Redisclosure prohibited without a patient's written consent.
[2019-05-03] MEDS ORDERED: 0.9 % Sodium Chloride 250 ML IVC SCH (10:30)
[2019-05-03 12:43] LABS: Basophils # 0.1 K/mcL (0.0-0.2); Basophils % 0.6 %; Eosinophils # 0.2 K/mcL (0.0-0.6); Eosinophils % 1.5 %; Hematocrit 22.6 % (35.3-44.9); Hemoglobin 6.9 g/dL (11.5-15.4); Immature Granulocytes % 0.6 % (0-4); Lymphocytes # 0.6 K/mcL (0.6-4.6); Lymphocytes % 5.6 %; Mean Corpuscular HGB Conc 30.5 g/dL (31.6-35.5); Mean Corpuscular Hemoglobin 29.6 pg (28.0-33.3); Monocytes # 0.7 K/mcL (0.0-1.3); Monocytes % 6.9 %; Neutrophils # 8.4 K/mcL (1.6-8.9); Platelet Count 249 K/mcL (140-400); Red Blood Count 2.33 M/mcL (3.82-4.97); Red Cell Distribution Width 15.9 % (11.5-14.5); Segmented Neutrophils % 84.8 %; White Blood Count 9.9 K/mcL (4.3-11.1)
[2019-05-03 16:29] VITALS: BP 145/95
[2019-05-03] MEDS: *HR* Rivaroxaban 15 MG TABLET PO SCH (17:17)
[2019-05-03 18:12] LABS: Hematocrit 26.3 % (35.3-44.9); Hemoglobin 8.1 g/dL (11.5-15.4)
== END 2019-05-04 12:00 ==
LOC: 3NENU 13:39 → EMEROOARM 13:39 → SUATTDRO 17:00 → 3NENU 17:37
PROVIDERS: ADMIT Internal Medicine; ATTEND Internal Medicine

== ENCOUNTER 2019-05-23 06:41 | Observation (INO) ==
[2019-05-23] MEDS ORDERED: ALTEPLASE IVP ONE (06:58)
--- NOTE | 2019-05-23 07:07 | Emergency Department Note ---
Disposition Clinical Impression: Altered mental status Qualifiers: Altered mental status type: unspecified Qualified Code(s): R41.82 - Altered mental status, unspecified Disposition: Still a Patient Condition: Undetermined Referrals: Isabell Dillard MD [Primary Care Provider] - Forms: ED Satisfaction Letter Time of Disposition: 07:47 Altered Mental Status HPI - General Chief Complaint: ED Altered Mental Status Stated Complaint: unresponsive/hip pain Time Seen by Provider: 05/23/19 06:54 Source: EMS Mode of arrival: EMS Limitations: altered mental status Nursing Notes Reviewed: Yes Vital Signs Reviewed: Yes - History of Present Illness HPI Narrative: Patient is an 83-year-old female who is presenting with altered mental status from [facility] via EMS. Patient has known history of atrial fibrillation currently on Xarelto, she also has history of CVA,anxiety, hypertension and hyperlipidemia. Patient was brought in via EMS with concern for altered mentation. Per EMS, just prior to arrival with last known well at 0500, patient was in her room, began to scream out in pain as she recently had right hip fracture with surgical intervention, she then became quiet, she was given Tylenol, she then went "unresponsive and would not respond to sternal rub ". Patient was breathing this entire time. She did not lose a pulse. It is noted by EMS that upon their arrival, patient's eyes were open, she was no longer screaming or in pain, however she was not responding to painful or verbal stimuli. She would not move any of her extremities. There is no reported recent fall. Patient otherwise is not able to contributory to her story and does not answer any questions. She w ill not shake her head yes or no, she will not blink her eyes on command, however she will track her eyes during my discussion. Per EMS, her baseline is alert oriented 3, normal speech, able to walk with the assistance of a walker. Normally has normal mentation, family members are to becoming to the ER for further clarification and discussion on this matter. Per chart as well as EMS, patient is currently residing at [facility], she was discharged back to her extended care facility on 05/22/2019 following similar symptoms on 05/20/2019, where she had very similar episode where patient became unresponsive, was moving her eyes and locating cover was not moving her extremities. At that point in time, she was seen in [place] [facility], she had a CT of the head which showed no acute ischemic changes, she was admitted to [facility] where she stayed for 2 days prior to her disposition of returning to the [facility], by the time she was discharged, her mental status had come back to baseline. It was planned to have outpatient MRA performed for further posterior circulation evaluation. This is not been done per our records at this time. - Related Data Home Medications Medication Instructions Recorded Confirmed Omeprazole [PriLOSEC] 20 mg PO DAILY 09/11/15 05/03/19 Potassium Chloride [K-Tab ER] 20 meq PO DAILY 05/31/16 05/03/19 Metoprolol Succinate 25 mg PO DAILY 07/28/17 05/03/19 Aspirin Enteric Coated [Aspirin EC] 81 mg PO QAM 03/01/19 05/03/19 Previous Rx's Medication Instructions Recorded Atorvastatin [Lipitor] 80 mg PO HS 30 Days #30 tablet 03/05/19 Rivaroxaban [Xarelto] 15 mg PO 1700 #30 tablet 04/05/19 Acetaminophen [Tylenol] 650 mg PO Q6HR PRN 1 Days #8 tablet 05/03/19 Furosemide [Lasix] 20 mg PO DAILY tablet 05/22/19 Lactobacillus [Culturelle] 1 each PO BID cap.sprink 05/22/19 Lidocaine Patch [Lidoderm 5% patch] 1 each TP DAILY adh..patch 05/22/19 Paroxetine [Paxil] 10 mg PO DAILY tablet 05/22/19 amLODIPine [Norvasc] 5 mg PO HS tablet 05/22/19 Allergies Allergy/AdvReac Type Severity Reaction Status Date / Time ampicillin Allergy Hives Verified 03/01/19 10:05 morphine AdvReac Hallucinati Verified 03/01/19 10:05 ng nitrofurantoin AdvReac Gastrointestinal Verified 03/22/19 09:26 [From Macrobid] Upset All systems ED: reviewed and negative except as stated. Review of Systems: As Per HPI Limitations: ROS unobtainable due to patients medical condition Past Medical History - Past Medical History Medical history: Reports: atrial fibrillation, CHF, CVA, diabetes, GERD, hypertension, renal disease, TIA, other Surgical history: Reports: appendectomy, hysterectomy, ALAN/BSO Psychiatric history: Reports: anxiety BLIND [employer]ACER history: Reports: no BLIND LACER history - Social History Smoking Status: Never smoker Smokeless Tobacco Status: No Alcohol use: Reports: none Drug use: Reports: none Physical Exam - General Limitations: altered mental status General appearance: other - Head Head exam: atraumatic, normocephalic - Eye Eye exam: Present: normal appearance, PERRL, EOMI - ENT ENT exam: mucous membranes moist - Neck Neck exam: Present: normal inspection, trachea midline - Chest Chest inspection: Present: normal inspection, symmetric chest wall rise - Respiratory Respiratory exam: Present: normal lung sounds bilaterally. Absent: respiratory distress - Cardiovascular Cardiovascular exam: Present: regular rate, normal rhythm - Abdominal Exam Abdominal exam: Present: soft, Non-Tender - Extremities Exam Extremities exam: Present: normal inspection, normal capillary refill. Absent: pedal edema - Neurological Exam Neurological exam: Present: alert - Expanded Neurological Exam Patient oriented to: Absent: person, place, time Speech: Present: total aphasia Motor strength - LUE: 0/5 Motor strength - RUE: 0/5 Motor strength - LLE: 0/5 Motor strength - RLE: 0/5 Coma Scale Eye Opening: Spontaneous Coma Scale Motor Response: None Coma Scale Verbal Response: None Coma Scale Total: 6 - Skin Skin exam: Present: warm, dry, intact. Absent: rash, diaphoresis, erythema, pallor Course Vital Signs Temperature 98.4 F 05/23/19 06:43 Pulse Rate 77 05/23/19 06:43 Respiratory Rate 19 05/23/19 06:43 Blood Pressure 185/119 05/23/19 06:43 O2 Sat by Pulse Oximetry 98 05/23/19 06:43 Temperature 98.4 F 05/23/19 06:43 Pulse Rate 76 05/23/19 07:15 Respiratory Rate 15 05/23/19 07:15 Blood Pressure 152/95 05/23/19 07:15 O2 Sat by Pulse Oximetry 95 05/23/19 06:59 Oxygen Delivery Oxygen Delivery Room Air Altered Mental Status - MDM Narrative Medical decision making narrative: Patient is an 83-year-old female who is brought in from an [facility] via EMS for concern for altered mental status. Last known well was at 5:00 in the morning. On EMSs arrival, patient was able to open her eyes and track however she was not moving any of her extremities and will not move any extremities to pain or verbal stimuli, on arrival GCS is 6 however patient has a patent airway, maintaining oxygen saturation at 98% on room air, no with no difficulty breathing and clear to auscultation lung sounds. Heart rate is regular and being at 76 bpm. She will not follow commands, she does keep her eyes open and will track but will not move any extremities or perform any physical exam or neurological examination on command. Due to this, patient does have an NIH of 32. Stroke alert was called on initial assessment. Concern for possible intracranial bleed, ischemic stroke, possible ACS, infection, electrolyte change, hyponatremia, psychogenic concern as well. Patient was signed out to the day team, Dr. Terry, Dr. So and Dr. Escobar. At time of sign out, patient had all of her laboratory work pending, her CT of the head pending, her chest x-ray, her EKG and disposition. I anticipate given the patient's acute neurological changes, the patient will be admitted for further imaging. Family will be coming to bedside, will need to discuss further disposition with family once they arrive. At time of sign out, patient remains unchanged, she still opens her eyes to spontaneously, will track, but continues to be unable to move any of her extremities or speak. She remains on room air satting at 96-98%, no abnormal rhythm at this point in time, remains around 75 bpm. Patient otherwise appears in no acute distress. - Differential Diagnosis Likely: altered mental status, delirium, dementia, hypoglycemia, hyponatremia, psychiatric disease - Medical Records Medical records reviewed: Yes I reviewed the patient's medical records. - Lab Data Lab results reviewed: Yes I reviewed the patient's lab results. Result diagrams: 05/23/19 07:15 Lab Results 05/23/19 05/23/19 Range/Units 07:15 07:19 WBC 6.7 (4.3-11.1) K/mcL RBC 3.47 L (3.82-4.97) M/mcL Hgb 10.6 L (11.5-15.4) g/dL Hct 33.5 L (35.3-44.9) % MCV 96.5 (83.0-100.0) fL MCH 30.5 (28.0-33.3) pg MCHC 31.6 (31.6-35.5) g/dL RDW 16.9 H (11.5-14.5) % Plt Count 372 (140-400) K/mcL MPV 9.1 L (9.4-12.4) fL Urine Color Yellow (Yellow) Urine Clarity Slightly Cloudy A (Clear) Urine pH 6.5 (5.0-8.0) pH Units Ur Specific [place] 1.010 (1.010-1.025) Urine Protein 30 H (Neg-Trace) mg/dL Urine Glucose (UA) Normal (Normal) mg/dL Urine Ketones Negative (Negative) mg/dL Urine Blood Negative (Negative) Urine Nitrite Positive A (Negative) Urine Bilirubin Negative (Negative) Urine Urobilinogen Normal (Normal) mg/dL Ur Leukocyte Esterase Trace H (Negative) TPA Checklist - LKW: 3-4.5 hrs Add. Warnings/Precautions Patient/family understanding: The patient/family members have been counseled and understood the risk, benefit, and alternatives of treatment. NIH Stroke Scale - Level of Consciousness LOC: Alert - LOC Questions LOC Questions: Answers both incorrectly - LOC Commands LOC Commands: Performs both incorrectly - Best Gaze Best Gaze: Normal - Visual Visual: No visual loss - Facial Palsy Facial Palsy: Complete absence of movement in upper and lower face - Motor Arms Motor Arm-Left: No movement Motor Arm-Right: No movement - Motor Legs Motor Leg-Left: No movement Motor Leg-Right: No movement - Limb Ataxia Limb Ataxia: Absent of affected limb too weak to perform exam - Sensory Sensory: Severe loss. Total sensory loss, pt unaware of being touched - Best Language Best Language: Mute, no usable speech - Dysarthria Dysarthria: Severe, slurred speech unintelligible or mute - Extinction and Inattention Extinction and Inattention: Profound dyana-inattention or dyana-attention in >ONE modality. (Patient is unable to move any extremities, she is not able to speak, therefore is not following any commands on examination) - NIHSS Total Score NIHSS Total Score: 32
[2019-05-23 07:22] LABS: Hematocrit 33.5 % (35.3-44.9); Hemoglobin 10.6 g/dL (11.5-15.4); Mean Corpuscular HGB Conc 31.6 g/dL (31.6-35.5); Mean Corpuscular Hemoglobin 30.5 pg (28.0-33.3); Mean Corpuscular Volume 96.5 fL (83.0-100.0); Mean Platelet Volume 9.1 fL (9.4-12.4); Platelet Count 372 K/mcL (140-400); Red Blood Count 3.47 M/mcL (3.82-4.97); Red Cell Distribution Width 16.9 % (11.5-14.5); White Blood Count 6.7 K/mcL (4.3-11.1)
--- NOTE | 2019-05-23 07:25 | Emergency Department Note ---
Disposition Clinical Impression: Altered mental status Qualifiers: Altered mental status type: unspecified Qualified Code(s): R41.82 - Altered mental status, unspecified Disposition: Still a Patient Condition: Undetermined Referrals: Isabell Dillard MD [Primary Care Provider] - Forms: ED Satisfaction Letter Time of Disposition: 07: General Adult HPI - General Chief complaint: ED Altered Mental Status Stated complaint: unresponsive/hip pain Time Seen by Provider: 05/23/19 06:54 Source: EMS Limitations: altered mental status Nursing Notes Reviewed: Yes Vital Signs Reviewed: Yes - History of Present Illness Pain Scale: 0 - Related Data Home Medications Medication Instructions Recorded Confirmed Omeprazole [PriLOSEC] 20 mg PO DAILY 09/11/15 05/03/19 Potassium Chloride [K-Tab ER] 20 meq PO DAILY 05/31/16 05/03/19 Metoprolol Succinate 25 mg PO DAILY 07/28/17 05/03/19 Aspirin Enteric Coated [Aspirin EC] 81 mg PO QAM 03/01/19 05/03/19 Previous Rx's Medication Instructions Recorded Atorvastatin [Lipitor] 80 mg PO HS 30 Days #30 tablet 03/05/19 Rivaroxaban [Xarelto] 15 mg PO 1700 #30 tablet 04/05/19 Acetaminophen [Tylenol] 650 mg PO Q6HR PRN 1 Days #8 tablet 05/03/19 Furosemide [Lasix] 20 mg PO DAILY tablet 05/22/19 Lactobacillus [Culturelle] 1 each PO BID cap.sprink 05/22/19 Lidocaine Patch [Lidoderm 5% patch] 1 each TP DAILY adh..patch 05/22/19 Paroxetine [Paxil] 10 mg PO DAILY tablet 05/22/19 amLODIPine [Norvasc] 5 mg PO HS tablet 05/22/19 Allergies Allergy/AdvReac Type Severity Reaction Status Date / Time ampicillin Allergy Hives Verified 03/01/19 10:05 morphine AdvReac Hallucinati Verified 03/01/19 10:05 ng nitrofurantoin AdvReac Gastrointestinal Verified 03/22/19 09:26 [From Macrobid] Upset Past Medical History - Past Medical History Medical history: Reports: atrial fibrillation, CHF, CVA, diabetes, GERD, hypertension, renal disease, TIA, other Surgical history: Reports: appendectomy, hysterectomy, ALAN/BSO Psychiatric history: Reports: anxiety [employer] history: Reports: no [employer] history - Social History Smoking Status: Never smoker Smokeless Tobacco Status: No Alcohol use: Reports: none Drug use: Reports: none Physical Exam - General Limitations: altered mental status General appearance: other Course Vital Signs Temperature 98.4 F 05/23/19 06:43 Pulse Rate 77 05/23/19 06:43 Respiratory Rate 19 05/23/19 06:43 Blood Pressure 185/119 05/23/19 06:43 O2 Sat by Pulse Oximetry 98 05/23/19 06:43 Temperature 98.4 F 05/23/19 06:43 Pulse Rate 76 05/23/19 06:59 Respiratory Rate 15 05/23/19 06:59 Blood Pressure 152/95 05/23/19 06:59 O2 Sat by Pulse Oximetry 95 05/23/19 06:59 Oxygen Delivery Oxygen Delivery Room Air Medical Decision Making - Lab Data Result diagrams: 05/23/19 07:15 Lab Results 05/23/19 Range/Units 07:15 WBC 6.7 (4.3-11.1) K/mcL RBC 3.47 L (3.82-4.97) M/mcL Hgb 10.6 L (11.5-15.4) g/dL Hct 33.5 L (35.3-44.9) % MCV 96.5 (83.0-100.0) fL MCH 30.5 (28.0-33.3) pg MCHC 31.6 (31.6-35.5) g/dL RDW 16.9 H (11.5-14.5) % Plt Count 372 (140-400) K/mcL MPV 9.1 L (9.4-12.4) fL Attestation Statement - Attestation Attestation: I, Arben Vaughan MD, personally evaluated this patient and discussed their management with the resident physician. I reviewed the resident's note and agree with the documented findings, medical decision making, and plan of care. 83-year-old female presents to the emergency department by EMS from a local skilled nursing for altered mental status. Patient was up and he just discharged yesterday from [facility] and admitted to the skilled nursing. She had recent right hip surgery. [facility] reports that at 5 AM this morning the patient started screaming uncontrollably. They gave her Tylenol for pain and then she stopped screaming and became limp and unresponsive. EMS reports when they arrived the patient's eyes were open but she would not respond to anything. On arrival here the patient does have her eyes open and will look towards you when you walk by the head of the bed but she will not follow my fingers. She will not follow any commands or answer any questions. She is flaccid bilaterally. Last known well was apparently 5 AM. A stroke alert was called and patient was taken directly to CT. On examination patient is a well-developed well-nourished elderly female. She is awake but unresponsive. Flaccid bilaterally. Pupils are equal bilaterally and sluggish but do react. Mucous membranes are slightly dry. Breath sounds are equal bilaterally. Heart regular. Abdomen soft with present bowel sounds. At morning shift change patient is signed out to the oncoming dayshift team, Dr. Serrano, Dr. So, and Dr. Escobar.
[2019-05-23 07:31] LABS: INR 1.4; Prothrombin Time 15.4 Seconds (9.4-12.1)
[2019-05-23 07:33] LABS: Bilirubin,Urine Negative (Negative); Blood,Urine Negative (Negative); Color,Urine Yellow (Yellow); Glucose,Urine (UA) Normal (Normal); Ketones,Urine Negative (Negative); Leukocyte Esterase,Urine Trace (Negative); Nitrite,Urine Positive (Negative); PH,Urine 6.5 pH Units (5.0-8.0); Protein,Urine 30 mg/dL (Neg-Trace); Urobilinogen,Urine Normal (Normal)
[2019-05-23 07:34] LABS: Clarity,Urine Slightly Cloudy (Clear)
[2019-05-23 07:34] LABS: Activated Partial Thrombo Time 35.7 Seconds (26.0-36.0)
--- NOTE | 2019-05-23 07:37 | Emergency Department Note ---
Disposition Clinical Impression: Altered mental status Qualifiers: Altered mental status type: unspecified Qualified Code(s): R41.82 - Altered mental status, unspecified UTI (urinary tract infection) Qualifiers: Urinary tract infection type: site unspecified Hematuria presence: without hematuria Qualified Code(s): N39.0 - Urinary tract infection, site not specified Disposition: Admitted As Inpatient Condition: Good Referrals: Isabell Dillard MD [Primary Care Provider] - Forms: ED Satisfaction Letter Time of Disposition: 13:03 Altered Mental Status HPI - General Chief Complaint: ED Altered Mental Status Stated Complaint: unresponsive/hip pain Time Seen by Provider: 05/23/19 06:54 Source: EMS Mode of arrival: EMS Limitations: altered mental status Nursing Notes Reviewed: Yes Vital Signs Reviewed: Yes - History of Present Illness HPI Narrative: 83F with Recent hx of right hip fracture with admission to [facility] for rehabilitation, with subsequent development of similar symptoms a few days later, with admission to [facility] and resolution of symptoms two days later. She was LKW at 0500 this morning and then when staff went to check on her, she was not able to respond verbally or move any extremities. Stroke alert was called by night team, and Head CT was called by Dr. Stevo Beltran at 0715 which did not demonstrate any hemorrhage but did show a loss of ordaz/white border at left occipital lobe which had been demonstrated on previous imaging. I received this patient in sign-out from Dr. Karrie Gambino and Dr. Arben Vaughan. Please see their notes for initial H&P. - Related Data Home Medications Medication Instructions Recorded Confirmed Omeprazole [PriLOSEC] 20 mg PO DAILY 09/11/15 05/03/19 Potassium Chloride [K-Tab ER] 20 meq PO DAILY 05/31/16 05/03/19 Metoprolol Succinate 25 mg PO DAILY 07/28/17 05/03/19 Aspirin Enteric Coated [Aspirin EC] 81 mg PO QAM 03/01/19 05/03/19 Previous Rx's Medication Instructions Recorded Atorvastatin [Lipitor] 80 mg PO HS 30 Days #30 tablet 03/05/19 Rivaroxaban [Xarelto] 15 mg PO 1700 #30 tablet 04/05/19 Acetaminophen [Tylenol] 650 mg PO Q6HR PRN 1 Days #8 tablet 05/03/19 Furosemide [Lasix] 20 mg PO DAILY tablet 05/22/19 Lactobacillus [Culturelle] 1 each PO BID cap.sprink 05/22/19 Lidocaine Patch [Lidoderm 5% patch] 1 each TP DAILY adh..patch 05/22/19 Paroxetine [Paxil] 10 mg PO DAILY tablet 05/22/19 amLODIPine [Norvasc] 5 mg PO HS tablet 05/22/19 Allergies Allergy/AdvReac Type Severity Reaction Status Date / Time ampicillin Allergy Hives Verified 03/01/19 10:05 morphine AdvReac Hallucinati Verified 03/01/19 10:05 ng nitrofurantoin AdvReac Gastrointestinal Verified 03/22/19 09:26 [From Macrobid] Upset Limitations: ROS unobtainable due to patients medical condition Past Medical History - Past Medical History Attestation: Yes The following information was validated with the patient. Medical history: Reports: atrial fibrillation, CHF, CVA, diabetes, GERD, hypertension, renal disease, TIA, other Surgical history: Reports: appendectomy, hysterectomy, ALAN/BSO Psychiatric history: Reports: anxiety ENGRAVER LETTER history: Reports: no ENGRAVER LETTER history - Social History Smoking Status: Never smoker Smokeless Tobacco Status: No Alcohol use: Reports: none Drug use: Reports: none Physical Exam General: No acute distress. Well developed, well nourished. Pt has eyes open, but cannot speak or follow directions. GCS is 6, but patient is maintaining own airway, vitals are WNL, and can shake head slightly in response to questions. Head: atraumatic, normocephalic. ENT: No conjunctival injection, no scleral icterus. PERRLA. EOMI. Oropharynx non- erythematous. mucous membranes dry. Neuro: Unable to participate in full neuro exam, but patient does shake head slightly "no" in response to questions. She will follow movement with her eyes, but does not look to the left or right when directed to do so. Pulm: Lungs CTAB A/P. No wheezes, rales, ronchi. Cardio: RRR no m/r/g. Abd: Soft, non-distended. Normoactive bowel sounds. Extremities: Radial pulses 2+ clari, posterior tibialis 2+ on right, 1+ on left. Pt moved right leg when hip was palpated. Skin: warm, dry, intact. Psych: Unable to assess. - General Limitations: altered mental status General appearance: other Course Vital Signs Temperature 98.4 F 05/23/19 06:43 Pulse Rate 77 05/23/19 06:43 Respiratory Rate 19 05/23/19 06:43 Blood Pressure 185/119 05/23/19 06:43 O2 Sat by Pulse Oximetry 98 05/23/19 06:43 Temperature 98.4 F 05/23/19 06:43 Pulse Rate 87 05/23/19 12:21 Respiratory Rate 18 05/23/19 12:21 Blood Pressure 148/88 05/23/19 12:21 O2 Sat by Pulse Oximetry 100 05/23/19 12:21 Oxygen Delivery Oxygen Delivery Room Air Altered Mental Status - MDM Narrative Medical decision making narrative: 0839: Pt was talking and responding to commands. [facility] reccommended tpa administration before she had regained baseline, and CTA of Head and Neck. These studies are pending. Pt will be admitted here unless CTA shows acute occlusion. 1132: Head and Neck CTA unremarkable. Will admit to hospitalist for further neurologic workup. 1302: I checked on the patient again and she was sleeping comfortably. Pt was admitted to the hospitalist, Dr. Metz, who agreed to accept the patient to his service. Her UA shows concern for UTI, which i shared with the hospitalist. Pt was stable at the time of disposition. - Medical Records Medical records reviewed: Yes I reviewed the patient's medical records. - Lab Data Lab results reviewed: Yes I reviewed the patient's lab results. Result diagrams: 05/23/19 07:15 05/23/19 07:15 Lab Results 05/23/19 05/23/19 05/23/19 Range/Units 07:09 07:15 07:15 WBC 6.7 (4.3-11.1) K/mcL RBC 3.47 L (3.82-4.97) M/mcL Hgb 10.6 L (11.5-15.4) g/dL Hct 33.5 L (35.3-44.9) % MCV 96.5 (83.0-100.0) fL MCH 30.5 (28.0-33.3) pg MCHC 31.6 (31.6-35.5) g/dL RDW 16.9 H (11.5-14.5) % Plt Count 372 (140-400) K/mcL MPV 9.1 L (9.4-12.4) fL PT 15.4 H (9.4-12.1) Seconds INR 1.4 APTT 35.7 (26.0-36.0) Seconds Sodium (136-145) mEq/L Potassium (3.5-5.1) mEq/L Chloride (98-107) mEq/L Carbon Dioxide (23-29) mEq/L BUN (8-23) mg/dL Creatinine (0.60-1.20) mg/dL Est GFR ( Amer) (> 60) Est GFR (Non-Af Amer) (> 60) BUN/Creatinine Ratio (6-26) Glucose (70-105) mg/dL Calculated Osmolality (280-300) Lactic Acid 1.3 (0.5-2.2) mmol/L Calcium (8.6-10.3) mg/dL Troponin I (< 0.04) ng/mL Urine Color (Yellow) Urine Clarity (Clear) Urine pH (5.0-8.0) pH Units Ur Specific [place] (1.010-1.025) Urine Protein (Neg-Trace) mg/dL Urine Glucose (UA) (Normal) mg/dL Urine Ketones (Negative) mg/dL Urine Blood (Negative) Urine Nitrite (Negative) Urine Bilirubin (Negative) Urine Urobilinogen (Normal) mg/dL Ur Leukocyte Esterase (Negative) Urine Microscopic RBC (0-3) per hpf Urine Microscopic WBC (0-3) per hpf Urine Bacteria (None-Few) per hpf 05/23/19 05/23/19 Range/Units 07:15 07:19 WBC (4.3-11.1) K/mcL RBC (3.82-4.97) M/mcL Hgb (11.5-15.4) g/dL Hct (35.3-44.9) % MCV (83.0-100.0) fL MCH (28.0-33.3) pg MCHC (31.6-35.5) g/dL RDW (11.5-14.5) % Plt Count (140-400) K/mcL MPV (9.4-12.4) fL PT (9.4-12.1) Seconds INR APTT (26.0-36.0) Seconds Sodium 138 (136-145) mEq/L Potassium 3.9 (3.5-5.1) mEq/L Chloride 104 (98-107) mEq/L Carbon Dioxide 24 (23-29) mEq/L BUN 16 (8-23) mg/dL Creatinine 0.91 (0.60-1.20) mg/dL Est GFR ( Amer) > 60 (> 60) Est GFR (Non-Af Amer) 59 L (> 60) BUN/Creatinine Ratio 18 (6-26) Glucose 130 H (70-105) mg/dL Calculated Osmolality 289 (280-300) Lactic Acid (0.5-2.2) mmol/L Calcium 9.2 (8.6-10.3) mg/dL Troponin I < 0.03 (< 0.04) ng/mL Urine Color Yellow (Yellow) Urine Clarity Slightly Cloudy A (Clear) Urine pH 6.5 (5.0-8.0) pH Units Ur Specific [place] 1.010 (1.010-1.025) Urine Protein 30 H (Neg-Trace) mg/dL Urine Glucose (UA) Normal (Normal) mg/dL Urine Ketones Negative (Negative) mg/dL Urine Blood Negative (Negative) Urine Nitrite Positive A (Negative) Urine Bilirubin Negative (Negative) Urine Urobilinogen Normal (Normal) mg/dL Ur Leukocyte Esterase Trace H (Negative) Urine Microscopic RBC 0-3 (0-3) per hpf Urine Microscopic WBC 0-3 (0-3) per hpf Urine Bacteria Few (None-Few) per hpf - Radiology Data Radiology results reviewed: Yes I reviewed the patient's radiology results. Head CT 05/23/19 07:07 IMPRESSION: 1. No acute intracranial hemorrhage or global mass effect. 2. There is questionable left occipital lobe cast-white interface loss, which could relate to subacute ischemic changes. If clinically indicated, further evaluation with MRI would be helpful. Critical test results were called by Dr. Sergey Hall MD to Rocio Backaddison on 05/23/2019 at 07:13. D/ / 05/23/2019 09:07:54 Sergey Hall MD / [facility] Interpreting Provider: Sergey Hall MD Head CTA 05/23/19 10:36 IMPRESSION: Normal CTA of the head and neck. No evident arterial stenosis, occlusion, or dissection. No evident intracranial aneurysm. D/ / Ravindra Bae MD / Ravindra Bae MD Interpreting Provider: Ravindra Bae MD Neck CTA 05/23/19 10:36 IMPRESSION: Normal CTA of the head and neck. No evident arterial stenosis, occlusion, or dissection. No evident intracranial aneurysm. D/ / Ravindra aBe MD / Ravindra Bae MD Interpreting Provider: Ravindra Bae MD Checklist - LKW: 3-4.5 hrs Add. Warnings/Precautions Patient/family understanding: The patient/family members have been counseled and understood the risk, benefit, and alternatives of treatment.
[2019-05-23 07:50] LABS: BUN/Creatinine Ratio 18 (6-26); Blood Urea Nitrogen 16 mg/dL (8-23); Calcium 9.2 mg/dL (8.6-10.3); Carbon Dioxide 24 mEq/L (23-29); Chloride 104 mEq/L (98-107); Glucose 130 mg/dL (70-105); Osmolality,Calculated 289 (280-300); Potassium 3.9 mEq/L (3.5-5.1); Sodium 138 mEq/L (136-145); Troponin I < 0.03 ng/mL (< 0.04); eGFR For African Americans > 60 (> 60); eGFR For Non-African Americans 59 (> 60)
[2019-05-23 07:50] LABS: Bacteria,Urine Few per hpf (None-Few); RBC,Urine 0-3 per hpf (0-3); WBC,Urine 0-3 per hpf (0-3)
[2019-05-23] MEDS ORDERED: Isovue-370 500 ML BOTTLE IVP ONE (08:18)
[2019-05-23] MEDS ORDERED: Ondansetron 4 MG/2 ML VIAL IVP PRN (13:35)
[2019-05-23] MEDS ORDERED: Naloxone 0.4 MG/ML INJ IVP PRN (13:35)
[2019-05-23] MEDS ORDERED: 0.9 % Sodium Chloride 1,000 ML IVC SCH (13:45)
[2019-05-23] MEDS ORDERED: levoFLOXacin 500 MG/100 ML 500 MG/100 ML BAG IVPB SCH (14:05)
[2019-05-23] MEDS ORDERED: Dextrose Gel 15 GM/37.5 ML TUBE PO PRN ×2 (14:11)
[2019-05-23] MEDS ORDERED: D5% in Water 1,000 ML IVC PRN (14:11)
[2019-05-23] MEDS ORDERED: *HR* Dextrose 50 % in Water (Syg) 50 ML SYRINGE IVP PRN (14:11)
--- NOTE | 2019-05-23 14:45 | Internal Med History&Physical ---
Date of Encounter: 05/23/19 Time of Encounter: 14:43 Internal Medicine - H&P: HPI Chief complaint: Altered mental status. Admitted From: Long-term Nursing Facility Plans for Post Hospital Care: Transfer Intermediate Facility History of present illness: Ms. Beltran is a 83 year old female with past medical history significant for atrial fibrillation currently on Zaroxolyn, TIA, anxiety, hypertension, hyperlipidemia was brought to the ED via EMS from the [facility] facility for altered mental status. Per EMS, patient's last bone loss 0500 this AM. Pt was uncoperative and was not alert and oriented during my history taking and physical exam. Continue to respond to sternal rub by rolling her eye. Patient was able to follow me with her eyes during my exam and during my entire history taking. Patient continues to have continuous breathing and pulse. Patient would not move her extremities. However, due to her current state she did not endorse any complaints. All information acquired through chart review and by talking to ER physicians and nurse. On presentation to the emergency department vitals were stable. Alert was called and [facility] stroke consultation done and after discussing with [facility] pt was not given t-PA. CBC and BMP within acceptable limits. US showed UTI. Will obtain culture and place pt on antibiotics. CT head was negative for any acute intracranial hemorrhage or mass effect. On CT [facility] in the left occipital lobe cast-white matter interface loss was seen. CTA head and neck was negative for any arterial stenosis, occlusion, and dissection. No evident aneurysm seen. PMH, PSH, Social history and Family history reviewed through chart review since patient is unable to provide those at the time of admission. Past Med Surg Social Fam HX - Past Medical History Medical history: atrial fibrillation, CHF, CVA, diabetes, GERD, hypertension, renal disease, TIA, other Additional medical history: UC Psychiatric history: anxiety - Past Surgical History Surgical History: appendectomy, hysterectomy, ALAN/BSO Additional surgical history: left toe removed, Tonsils removed - Social History Smoking Status: Never smoker Smokeless Tobacco Status: No Alcohol use: none Drug use: none - Family History Mother Adopted: No Living Status: Hx Family Cardiac Disorders: Yes Hx Family Respiratory Disorders: No Hx Family Cancer: No Hx Family GI Disorders: No Hx Family Endocrine Disorder: Yes Hx Family Neuromuscular Disorders: No Hx Family Neurologic Disorders: No Hx Family HEENT Disorders: No Hx Family Autoimmune Disorders: No Father Adopted: No Living Status: Hx Family Cardiac Disorders: Yes Hx Family Respiratory Disorders: No Hx Family Cancer: No Hx Family GI Disorders: No Hx Family Endocrine Disorder: No Hx Family Neuromuscular Disorders: No Hx Family Neurologic Disorders: No Hx Family HEENT Disorders: No Hx Family Autoimmune Disorders: No Internal Medicine - H&P: Meds Omeprazole [PriLOSEC] 20 mg PO DAILY 09/11/15 [History] Potassium Chloride [K-Tab ER] 20 meq PO DAILY 05/31/16 [History] Metoprolol Succinate 25 mg PO DAILY 07/28/17 [History] Aspirin Enteric Coated [Aspirin EC] 81 mg PO QAM 03/01/19 [History] Rivaroxaban [Xarelto] 15 mg PO 1700 #30 tablet 04/05/19 [Rx] Acetaminophen [Tylenol] 650 mg PO Q6HR PRN 1 Days #8 tablet 05/03/19 [Rx] Lactobacillus [Culturelle] 1 each PO BID cap.sprink 05/22/19 [Rx] Lidocaine Patch [Lidoderm 5% patch] 1 each TP DAILY adh..patch 05/22/19 [Rx] Paroxetine [Paxil] 10 mg PO DAILY tablet 05/22/19 [Rx] amLODIPine [Norvasc] 5 mg PO HS tablet 05/22/19 [Rx] Atorvastatin [Lipitor] 80 mg PO HS 05/23/19 [History] Furosemide [Lasix] 40 mg PO DAILY 05/23/19 [History] Lisinopril [Zestril] 40 mg PO DAILY 05/23/19 [History] Mesalamine [Apriso] 0.75 gm PO QAM 05/23/19 [History] cloNIDine HCl [CloNIDine HCl] 0.1 mg PO DAILY PRN 05/23/19 [History] Allergy/AdvReac Type Severity Reaction Status Date / Time ampicillin Allergy Hives Verified 03/01/19 10:05 morphine AdvReac Hallucinati Verified 03/01/19 10:05 ng nitrofurantoin AdvReac Gastrointestinal Verified 03/22/19 09:26 [From Macrobid] Upset ROS unobtainable: due to mental status All Systems PM: A 10-system review of systems was performed and is negative for pertinent findings except as documented above in the HPI. - Constitutional Vitals: Temp Pulse Resp BP Pulse Ox 98.4 F 87 18 162/78 100 05/23/19 06:43 05/23/19 12:21 05/23/19 13:47 05/23/19 13:47 05/23/19 12:21 Exam: General: Altered mental status and uncooperative HENNT: PERRLA. Head atraumatic and neck supple Eyes: No scleral icterus noted CVS S1 and S2 regular, no murmur RS: Clear to air entry bilaterally, no wheeze, no crackles Abdomen: Soft and nontender. Bowel sounds normal 4 Extremities: No cyanosis, clubbing, and edema Neurology: Ubnable toperform since patient is not alert and cooperative . Psychiatry: Not alert and oriented Skin: No significant rashes or bruises noted Internal Med - H&P Results - Labs CBC & Chem 7: 05/23/19 07:15 05/23/19 07:15 Labs: Short CBC 05/23/19 Range/Units 07:15 WBC 6.7 (4.3-11.1) K/mcL Hgb 10.6 L (11.5-15.4) g/dL Hct 33.5 L (35.3-44.9) % Plt Count 372 (140-400) K/mcL BMP 05/23/19 07:15 Sodium 138 Potassium 3.9 Chloride 104 Carbon Dioxide 24 BUN 16 Creatinine 0.91 Glucose 130 H Calcium 9.2 Cardiac Enzymes 05/23/19 Range/Units 07:15 Troponin I < 0.03 (< 0.04) ng/mL Urine 05/23/19 Range/Units 07:19 Urine Color Yellow (Yellow) Urine Clarity Slightly Cloudy A (Clear) Urine pH 6.5 (5.0-8.0) pH Units Ur Specific [place] 1.010 (1.010-1.025) Urine Protein 30 H (Neg-Trace) mg/dL Urine Glucose (UA) Normal (Normal) mg/dL - Impressions ITS Impressions Head CT 05/23/19 07:07 IMPRESSION: 1. No acute intracranial hemorrhage or global mass effect. 2. There is questionable left occipital lobe cast-white interface loss, which could relate to subacute ischemic changes. If clinically indicated, further evaluation with MRI would be helpful. Critical test results were called by Dr. Sergey Hall MD to Rocio Rios on 05/23/2019 at 07:13. D/ / 05/23/2019 09:07:54 Sergey Hall MD / [facility] Interpreting Provider: Sergey Hall MD Head CTA 05/23/19 10:36 IMPRESSION: Normal CTA of the head and neck. No evident arterial stenosis, occlusion, or dissection. No evident intracranial aneurysm. D/ / Ravindra Bae MD / Ravindra Bae MD Interpreting Provider: Ravindra Bae MD Neck CTA 05/23/19 10:36 IMPRESSION: Normal CTA of the head and neck. No evident arterial stenosis, occlusion, or dissection. No evident intracranial aneurysm. D/ / Ravindra Bae MD / Ravindra Bae MD Interpreting Provider: Ravindra Bae MD - Assessment and Plan (1) CVA (cerebral vascular accident) Current Visit: No Status: Acute Assessment and plan: Patient was brought to the ED via EMS from her SNF due to AMS and her LKW was 0500 today. Stroke alert was called and [facility] telestroke consult was done which did not suggest to give t pA - CT head, CTA head and neck unremarkable - MRI, EEG, Echo with saline study ordered - TSH, B12, folate, magnesium, and Phos level ordered - UA showed UTI - placed on Abx - Telemetry - Recent hypertension due to posiible CVA. Metoprolol 5 mg IVP q 6 PRN for BP > 220/120 - Neurology on consult, appreciate Neurology recommendations Qualifiers: CVA mechanism: unspecified Qualified Code(s): I63.9 - Cerebral infarction, unspecified (2) Altered mental status Current Visit: Yes Status: Acute Assessment and plan: As above Qualifiers: Altered mental status type: unspecified Qualified Code(s): R41.82 - Altered mental status, unspecified (3) UTI (urinary tract infection) Current Visit: Yes Status: Acute Assessment and plan: Levofloxacin. Await Urine Cx Qualifiers: Urinary tract infection type: site unspecified Hematuria presence: without hematuria Qualified Code(s): N39.0 - Urinary tract infection, site not specified (4) Atrial fibrillation Current Visit: No Status: Chronic Assessment and plan: IV Metoprolol as needed. Hold Xarelto until MRI is done Qualifiers: Atrial fibrillation type: chronic Qualified Code(s): I48.2 - Chronic atrial fibrillation (5) HTN (hypertension) Current Visit: No Status: Chronic Assessment and plan: Will hold BP medication for permissive HTN. Metoprolol IV push as needed for BP > 220/120 Qualifiers: Hypertension type: essential hypertension Qualified Code(s): I10 - Essential (primary) hypertension (6) Diabetes Current Visit: No Status: Chronic Assessment and plan: Low dose corrective insulin regimen Qualifiers: Diabetes mellitus type: type 2 Diabetes mellitus ad terminal makeup operator insulin use: without ad terminal makeup operator use Diabetes mellitus complication status: without complication Qualified Code(s): E11.9 - Type 2 diabetes mellitus without complications (7) HLD (hyperlipidemia) Current Visit: Yes Status: Chronic Assessment and plan: Will resume PO statin once pt tolerates PO intake Qualifiers: Hyperlipidemia type: unspecified Qualified Code(s): E78.5 - Hyperlipidemia, unspecified (8) DVT prophylaxis Current Visit: No Status: Acute Assessment and plan: Will resume patient's Xarelto after MRI is done - Time Spent With Patient Total time spent is greater than 50% in coordination of care (as documented) at patient's floor/unit and/or counseling patient: Greater than 35 minutes
[2019-05-23] MEDS ORDERED: *HR* Metoprolol 5 MG/5 ML VIAL IVP PRN (15:26)
[2019-05-23 15:32] LABS: Magnesium 1.9 mg/dL (1.6-2.6); Phosphorous 4.7 mg/dL (2.7-4.5)
[2019-05-23 15:46] LABS: Thyroid Stimulating Hormone 0.373 mcIU/mL (0.340-5.600)
--- NOTE | 2019-05-23 15:47 | Neurology - Consult Note ---
<Elle Harvey N - Last Filed: 05/23/19 15:51> Date of Encounter: 05/23/19 Time of Encounter: 15:43 Assessment and Plan (1) Toxic metabolic encephalopathy Current Visit: Yes Status: Acute Unclear etiology with episodic mental status changes and unresponsiveness. Differential includes infection vs. nonconvulsive seizure vs. CVA. Recommendations: - Obtain MRI of the brain to evaluate for CVA. Echocardiogram pending. - EEG to evaluate for seizures. - Urinalysis is suspicious for acute infection, which could be causing her mental status changes. Await urine cultures and empiric antimicrobial treatment per primary team. - Evaluate for other metabolic and/or infectious etiologies (B12, folate, TSH, electrolyte studies). History of Present Illness Chief complaint: CVA and AMS HPI: Ms. Beltran is a 83 year old female with a history of atrial fibrillation, TIA, HTN, HLD, and recent right hip fracture s/p operative repair on 04/29/2019 who was brought to the ED for evaluation of acute mental status change and unresponsiveness. Patient currently is residing in an [facility], with last known well per nursing staff at 0500 this morning. Per review of ED documentation, patient was reportedly screaming in pain at this time and was administered pain medication, after which she became "unresponsive", with no movement of any extremities, though she would track movement throughout the room with her eyes. She did not experience cardiac or respiratory arrest. [facility] telestroke was used to evaluate patient in the ED; head CT demonstrated questionable left occipital cast-white interface loss, which could relate to subacute ischemic changes. CTA of the head and neck were unremarkable. While in the ED, patient reportedly had improvement in her symptoms, and was reportedly tracking provider movement throughout the room and shaking her head in response to questions. Patient was evaluated at [facility] for similar symptoms on 05/21/2019, with discharge back to [facility] on 05/22/2019. During that admission, patient was evaluated by [facility] via telestroke and underwent head CT, which demonstrated no acute findings. Patient was recommended to have MRI to evaluate posterior circulation, which was planned to be completed on an outpatient basis. Neurology consult was placed by admitting hospitalist for recommendations. On evaluation shortly after arrival to the nursing unit, patient was noted to be unresponsive to questions and stimulus, with no movement of her extremities and no purposeful eye movements or blinking. She does not follow commands or respond to questions. Past Med Surg Social Fam HX - Past Medical History Medical history: atrial fibrillation, CHF, CVA, diabetes, GERD, hypertension, re nal disease, TIA, other Additional medical history: UC Psychiatric history: anxiety - Past Surgical History Surgical History: appendectomy, hysterectomy, ALAN/BSO Additional surgical history: left toe removed, Tonsils removed - Social History Smoking Status: Never smoker Smokeless Tobacco Status: No Alcohol use: none Drug use: none - Family History Mother Adopted: No Living Status: Hx Family Cardiac Disorders: Yes Hx Family Respiratory Disorders: No Hx Family Cancer: No Hx Family GI Disorders: No Hx Family Endocrine Disorder: Yes Hx Family Neuromuscular Disorders: No Hx Family Neurologic Disorders: No Hx Family HEENT Disorders: No Hx Family Autoimmune Disorders: No Father Adopted: No Living Status: Hx Family Cardiac Disorders: Yes Hx Family Respiratory Disorders: No Hx Family Cancer: No Hx Family GI Disorders: No Hx Family Endocrine Disorder: No Hx Family Neuromuscular Disorders: No Hx Family Neurologic Disorders: No Hx Family HEENT Disorders: No Hx Family Autoimmune Disorders: No Medications and Allergies Omeprazole [PriLOSEC] 20 mg PO DAILY 09/11/15 [History] Potassium Chloride [K-Tab ER] 20 meq PO DAILY 05/31/16 [History] Metoprolol Succinate 25 mg PO DAILY 07/28/17 [History] Aspirin Enteric Coated [Aspirin EC] 81 mg PO QAM 03/01/19 [History] Rivaroxaban [Xarelto] 15 mg PO 1700 #30 tablet 04/05/19 [Rx] Acetaminophen [Tylenol] 650 mg PO Q6HR PRN 1 Days #8 tablet 05/03/19 [Rx] Lactobacillus [Culturelle] 1 each PO BID cap.sprink 05/22/19 [Rx] Lidocaine Patch [Lidoderm 5% patch] 1 each TP DAILY adh..patch 05/22/19 [Rx] Paroxetine [Paxil] 10 mg PO DAILY tablet 05/22/19 [Rx] amLODIPine [Norvasc] 5 mg PO HS tablet 05/22/19 [Rx] Atorvastatin [Lipitor] 80 mg PO HS 05/23/19 [History] Furosemide [Lasix] 40 mg PO DAILY 05/23/19 [History] Lisinopril [Zestril] 40 mg PO DAILY 05/23/19 [History] Mesalamine [Apriso] 0.75 gm PO QAM 05/23/19 [History] cloNIDine HCl [CloNIDine HCl] 0.1 mg PO DAILY PRN 05/23/19 [History] Allergy/AdvReac Type Severity Reaction Status Date / Time ampicillin Allergy Hives Verified 03/01/19 10:05 morphine AdvReac Hallucinati Verified 03/01/19 10:05 ng nitrofurantoin AdvReac Gastrointestinal Verified 03/22/19 09:26 [From Macrobid] Upset ROS unobtainable: due to mental status All Systems: The remainder of the systems were reviewed and are negative Physical Examination - Vital Signs Vital Signs: Initial Vital Signs Temp Pulse Resp BP Pulse Ox 98.4 F 77 19 185/119 98 05/23/19 06:43 05/23/19 06:43 05/23/19 06:43 05/23/19 06:43 05/23/19 06:43 - Exam Exam: General: Well-developed, well-nourished elderly adult female lying in bed with her eyes open. Patient does not respond to stimulus or follow commands. HEENT: Atraumatic and normocephalic. Skin: Warm, dry, and intact. Neurologic: Does not respond to commands or move extremities spontaneously. Patient has her eyes open, but does not demonstrate purposeful eye movements or track movement. No consistent eye opening/blinking in response to stimulus. - Neurologic Mental Status Examination: awake, does not follow commands, stupor, no spontaneous eye opening to voice or tactile stimulation, inattentive Results - Laboratory Findings CBC and BMP: 05/23/19 07:15 05/23/19 07:15 Abnormal lab findings: Abnormal lab results RBC 3.47 M/mcL (3.82-4.97) L 05/23/19 07:15 Hgb 10.6 g/dL (11.5-15.4) L 05/23/19 07:15 Hct 33.5 % (35.3-44.9) L 05/23/19 07:15 RDW 16.9 % (11.5-14.5) H 05/23/19 07:15 MPV 9.1 fL (9.4-12.4) L 05/23/19 07:15 PT 15.4 Seconds (9.4-12.1) H 05/23/19 07:15 Est GFR (Non-Af Amer) 59 (> 60) L 05/23/19 07:15 Glucose 130 mg/dL (70-105) H 05/23/19 07:15 Phosphorus 4.7 mg/dL (2.7-4.5) H 05/23/19 14:56 Urine Clarity Slightly Cloudy (Clear) A 05/23/19 07:19 Urine Protein 30 mg/dL (Neg-Trace) H 05/23/19 07:19 Urine Nitrite Positive (Negative) A 05/23/19 07:19 Ur Leukocyte Esterase Trace (Negative) H 05/23/19 07:19 Consult Discharge Plan - Plan Referrals: Isabell Dillard MD [Primary Care Provider] - <Aracelis Melendez I - Last Filed: 05/23/19 16:28> Date of Encounter: 05/23/19 Assessment and Plan (1) Toxic metabolic encephalopathy Current Visit: Yes Status: Acute Pt was seen and examined, my medical decision was reviewed with the Resident Physician, I agree with the documented findings, disposition and treatment plan, as described except to the extent set forth below Patient with multiple medical conditions admitted from the shelter because of unresponsiveness On my evaluation she is laying comfortably in the bed open eyes to verbal stimuli but did not respond Pupils are equal and reactive no facial asymmetry She does grimace to the deep pain with minimal withdrawal in upper extremities but she does withdraws both legs on deep pain CT scan of the head shows concern off infarct in the occipital lobe she did have an history of recent infarct We will get an MRI of the brain to confirm that indeed she had a new stroke or not Symptoms seems to be of generalized metabolic toxic encephalopathy Treatment underlying infectious etiologies at the same time check for any other metabolic disturbance HOld any pain medications for now We will review the EEG Aracelis Melendez MD History of Present Illness HPI: Ms. Beltran is a 83 year old female All Systems: The remainder of the systems were reviewed and are negative Physical Examination - Vital Signs Vital Signs: Initial Vital Signs Temp Pulse Resp BP Pulse Ox 98.4 F 77 19 185/119 98 05/23/19 06:43 05/23/19 06:43 05/23/19 06:43 05/23/19 06:43 05/23/19 06:43 Results - Laboratory Findings CBC and BMP: 05/23/19 07:15 05/23/19 07:15 Abnormal lab findings: Abnormal lab results RBC 3.47 M/mcL (3.82-4.97) L 05/23/19 07:15 Hgb 10.6 g/dL (11.5-15.4) L 05/23/19 07:15 Hct 33.5 % (35.3-44.9) L 05/23/19 07:15 RDW 16.9 % (11.5-14.5) H 05/23/19 07:15 MPV 9.1 fL (9.4-12.4) L 05/23/19 07:15 PT 15.4 Seconds (9.4-12.1) H 05/23/19 07:15 Est GFR (Non-Af Amer) 59 (> 60) L 05/23/19 07:15 Glucose 130 mg/dL (70-105) H 05/23/19 07:15 Phosphorus 4.7 mg/dL (2.7-4.5) H 05/23/19 14:56 Urine Clarity Slightly Cloudy (Clear) A 05/23/19 07:19 Urine Protein 30 mg/dL (Neg-Trace) H 05/23/19 07:19 Urine Nitrite Positive (Negative) A 05/23/19 07:19 Ur Leukocyte Esterase Trace (Negative) H 05/23/19 07:19
[2019-05-23 15:56] LABS: Folate 10.9 ng/mL (3.0-16.0)
--- NOTE | 2019-05-23 16:29 | EEG/EMG/Oth Biometrics Report ---
EEG Procedure Report EEG Procedure: Routine EEG Procedure Note: This is a routine 21 channel digital EEG performed utilizing 10- 20 international electrode placement system. FINDINGS: Patient has a predominant waking background frequency that is average voltage 6- 8 Hertz theta activity in the posterior region, normal amplitude symmetrical over the both hemispheres reactive to eyes opening and closing record continued to show alpha activity intermixed with some theta off and on, no abnormal activity recorded, predominantly no evidence of any spike wave discharges or any lateralizing abnormalities, Photic stimulation did not produce any convulsive response. Intermittent EMG artifacts were noted. Stage II sleep was not achieved. Impression: Abnormal electroencephalogram , Generalized slowing is a nonspecific pattern mostly seen in patient with metabolic toxic encephalopathy consistent with diffuse cortical dysfunction, No epileptiform discharges or any other paroxysmal activities noted.
[2019-05-23] MEDS: Insulin LISPRO 300 UNITS/3 ML VIAL SQ SCH (17:10)
--- NOTE | 2019-05-23 21:53 | Electrocardiograph Report ---
[address] [place], [place] [address] Test Date: 2019-05-23 Pat Name: Jaye Beltran Department: [id number] Room: 3B12 Gender: F Stippler: : 1935 Requested By: Karrie Gambino Order Number: [id number] Reading MD: Елена Olivarez Measurements Intervals [place] Rate: 81 P: [place]: QRS: 6 QRSD: 80 T: 40 QT: 399 QTc: 464 Interpretive Statements Atrial fibrillation Incomplete right bundle branch block Electronically Signed On 05-23-2019 21:51:20 EDT by Елена Olivarez
[2019-05-24] MEDS: Insulin LISPRO 300 UNITS/3 ML VIAL SQ SCH ×2 (00:09→05:34)
[2019-05-24 01:26] LABS: Basophils # 0.1 K/mcL (0.0-0.2); Basophils % 1.3 %; Eosinophils # 0.2 K/mcL (0.0-0.6); Eosinophils % 3.1 %; Hematocrit 32.9 % (35.3-44.9); Hemoglobin 10.3 g/dL (11.5-15.4); Immature Granulocytes % 0.2 % (0-4); Lymphocytes # 0.9 K/mcL (0.6-4.6); Lymphocytes % 14.7 %; Mean Corpuscular HGB Conc 31.3 g/dL (31.6-35.5); Mean Corpuscular Hemoglobin 29.9 pg (28.0-33.3); Mean Corpuscular Volume 95.6 fL (83.0-100.0); Mean Platelet Volume 9.2 fL (9.4-12.4); Monocytes # 0.5 K/mcL (0.0-1.3); Monocytes % 8.8 %; Neutrophils # 4.4 K/mcL (1.6-8.9); Platelet Count 376 K/mcL (140-400); Red Blood Count 3.44 M/mcL (3.82-4.97); Red Cell Distribution Width 16.9 % (11.5-14.5); Segmented Neutrophils % 71.9 %; White Blood Count 6.2 K/mcL (4.3-11.1)
[2019-05-24 01:34] LABS: BUN/Creatinine Ratio 18 (6-26); Blood Urea Nitrogen 17 mg/dL (8-23); Calcium 9.1 mg/dL (8.6-10.3); Carbon Dioxide 21 mEq/L (23-29); Chloride 106 mEq/L (98-107); Glucose 103 mg/dL (70-105); Osmolality,Calculated 288 (280-300); Sodium 138 mEq/L (136-145); eGFR For African Americans > 60 (> 60); eGFR For Non-African Americans 56 (> 60)
[2019-05-24 08:28] VITALS: BP 141/93
[2019-05-24] MEDS ORDERED: Cyanocobalamin (B-12) 1,000 MCG/ML VIAL IM ONE (08:28)
--- NOTE | 2019-05-24 08:33 | Neurology Progress Note ---
Date of Encounter: 05/24/19 Time of Encounter: 07:00 Assessment and Plan (1) Toxic metabolic encephalopathy Current Visit: Yes Status: Acute Clinically patient seems to be improved as compared to yesterday she is alert and awake now able to follow commands. Suspect it was mostly metabolic toxic than anything else though MRI of the brain there is a concern that it could be a subacute ischemia in the left parietal occipital lobe, but does not seems to be convincing at the same time seems to be T2 shine through in the [place] noted on previous examination as well. Regardless I would suggest we should continue treat her underlying metabolic toxic abnormalities treat for underlying infection Continue on antiplatelet therapy with aspirin only along with low-dose statin She did have a low therapeutic vitamin B12 suggest replacement as it could cause mental status changes in elderly. Beside that she would benefit from physical therapy evaluation perhaps when she is stable okay to transfer back to the nursing facility Subjective Interval history: Patient is much better today she is alert and awake able to follow simple commands oriented to person and place she did have a weakness of the right lower extremity as compared to the rest she did have a brace in her knee apparently had some intervention earlier and continued to be weak on the right side Objective - Constitutional Vitals: Temp Pulse Resp BP Pulse Ox 97.6 F 89 16 141/93 99 05/24/19 08:28 05/24/19 08:28 05/24/19 08:28 05/24/19 08:28 05/24/19 08:28 - Neurological Exam Motor Examination: Present: other (On examination today patient is alert awake and oriented, able to say her name able to follow simple commands moving both upper extremities equally without any focal motor deficit, she is also able to move left lower extremity with pain and a spontaneously but did have weakness of the right lower extremity which is in the brace and did have a right foot drop as well) Mental Status Examination: Present: awake, does not follow commands, stupor, no spontaneous eye opening to voice or tactile stimulation, inattentive Results - Laboratory Findings CBC and BMP: 05/24/19 00:27 05/24/19 00:27 Abnormal lab findings: Abnormal lab results RBC 3.44 M/mcL (3.82-4.97) L 05/24/19 00:27 Hgb 10.3 g/dL (11.5-15.4) L 05/24/19 00:27 Hct 32.9 % (35.3-44.9) L 05/24/19 00:27 MCHC 31.3 g/dL (31.6-35.5) L 05/24/19 00:27 RDW 16.9 % (11.5-14.5) H 05/24/19 00:27 MPV 9.2 fL (9.4-12.4) L 05/24/19 00:27 PT 15.4 Seconds (9.4-12.1) H 05/23/19 07:15 Carbon Dioxide 21 mEq/L (23-29) L 05/24/19 00:27 Est GFR (Non-Af Amer) 56 (> 60) L 05/24/19 00:27 Glucose 130 mg/dL (70-105) H 05/23/19 07:15 POC Glucose 105 mg/dL (70-99) H 05/23/19 23:55 Phosphorus 4.7 mg/dL (2.7-4.5) H 05/23/19 14:56 Urine Clarity Slightly Cloudy (Clear) A 05/23/19 07:19 Urine Protein 30 mg/dL (Neg-Trace) H 05/23/19 07:19 Urine Nitrite Positive (Negative) A 05/23/19 07:19 Ur Leukocyte Esterase Trace (Negative) H 05/23/19 07:19 - Diagnostic Findings Additional findings: MRI of the brain showed Increased diffusion signal in the left anterior medulla. This is decreased from the old examination. There is no definitive dark ADC map signal suggesting that this is likely T2 shine through and less likely due to recurrent infarct. Increased signal in the parenchyma just medial to the parietooccipital portion of the left lateral ventricle marginating the inferior leftward margin of the splenium of the corpus callosum. Although some of this may be T2 shine through, subacute ischemic change in this region would be difficult to exclude. Multiple old infarcts with surrounding gliotic change Multifocal small-vessel ischemic change Consult Discharge Plan - Plan Referrals: Isabell Dillard MD [Primary Care Provider] -
[2019-05-24 08:40] LABS: Estimated Average Glucose 114 mg/dl
--- NOTE | 2019-05-24 08:59 | Internal Med Progress Note ---
Hospitalist Progress Note - Encounter Date of Encounter: 05/24/19 Time of Encounter: 08:56 - Subjective Interval History: Pt was seen and examined at bedside this morning. She ia more alert and oriented compared to yesterday. She however, still non verbal so did not endorse any complaints. Pt is following simple command. Per chart review there was no fever overnight. - Exam Vitals: Temp Pulse Resp BP Pulse Ox 97.6 F 89 16 141/93 99 05/24/19 08:28 05/24/19 08:28 05/24/19 08:28 05/24/19 08:28 05/24/19 08:28 Exam: General: Allert andore oriented. Follows simple command. A and O X 1 HENNT: PERRLA. Head atraumatic and neck supple Eyes: No scleral icterus noted CVS S1 and S2 regular, no murmur RS: Clear to air entry bilaterally, no wheeze, no crackles Abdomen: Soft and nontender. Bowel sounds normal 4 Extremities: No cyanosis, clubbing, and edema Neurology: RLE no effore against gravity. Unable to test sensation since patient does not communicate verbally Psychiatry: Not alert and oriented Skin: No significant rashes or bruises noted - Assessment and Plan (1) Altered mental status Current Visit: Yes Status: Acute (2) CVA (cerebral vascular accident) Current Visit: No Status: Acute (3) UTI (urinary tract infection) Current Visit: Yes Status: Acute (4) Atrial fibrillation Current Visit: No Status: Chronic (5) HTN (hypertension) Current Visit: No Status: Chronic (6) Diabetes Current Visit: No Status: Chronic (7) HLD (hyperlipidemia) Current Visit: Yes Status: Chronic (8) DVT prophylaxis Current Visit: No Status: Acute - Time Spent with Patient Total time spent is greater than 50% in coordination of care (as documented) at patient's floor/unit and/or counseling patient: Internal Medicine: Result - Labs CBC & Chem 7: 05/24/19 00:27 05/24/19 00:27 Labs: Short CBC 05/23/19 05/24/19 Range/Units 07:15 00:27 WBC 6.7 6.2 (4.3-11.1) K/mcL Hgb 10.6 L 10.3 L (11.5-15.4) g/dL Hct 32.9 L (35.3-44.9) % Plt Count 372 376 (140-400) K/mcL Neutrophils # 4.4 (1.6-8.9) K/mcL BMP 05/23/19 05/24/19 07:15 00:27 Sodium 138 138 Potassium 3.9 4.0 Chloride 106 Carbon Dioxide 21 L BUN 17 Creatinine 0.95 Glucose 103 Calcium 9.1 - ABG Interpretation ABG results: PT/INR, D-dimer PT 15.4 Seconds (9.4-12.1) H 05/23/19 07:15 - Impressions Impressions Head CT 05/23/19 07:07 IMPRESSION: 1. No acute intracranial hemorrhage or global mass effect. 2. There is questionable left occipital lobe cast-white interface loss, which could relate to subacute ischemic changes. If clinically indicated, further evaluation with MRI would be helpful. Critical test results were called by Dr. Sergey Hall MD to Rocio Rios on 05/23/2019 at 07:13. D/ / 05/23/2019 09:07:54 Sergey Hall MD / earjusto Interpreting Provider: Sergey Hall MD Head CTA 05/23/19 10:36 IMPRESSION: Normal CTA of the head and neck. No evident arterial stenosis, occlusion, or dissection. No evident intracranial aneurysm. D/ / Ravindra Bae MD / Ravindra Bae MD Interpreting Provider: Ravindra Bae MD Neck CTA 05/23/19 10:36 IMPRESSION: Normal CTA of the head and neck. No evident arterial stenosis, occlusion, or dissection. No evident intracranial aneurysm. D/ / Ravindra Bae MD / Ravindra Bae MD Interpreting Provider: Ravindra Bae MD Brain MRI 05/23/19 18:53 IMPRESSION: Increased diffusion signal in the left anterior medulla. This is decreased from the old examination. There is no definitive dark ADC map signal suggesting that this is likely T2 shine through and less likely due to recurrent infarct. Increased signal in the parenchyma just medial to the parietooccipital portion of the left lateral ventricle marginating the inferior leftward margin of the splenium of the corpus callosum. Although some of this may be T2 shine through, subacute ischemic change in this region would be difficult to exclude. Multiple old infarcts with surrounding gliotic change Multifocal small-vessel ischemic change D/ / Leo Alanis / Leo Alanis Interpreting Provider: Leo Alanis Consult Discharge Plan - Plan Referrals: Isabell Dillard MD [Primary Care Provider] - (1) Altered mental status Qualifiers: Altered mental status type: unspecified Qualified Code(s): R41.82 - Altered mental status, unspecified (2) CVA (cerebral vascular accident) Qualifiers: CVA mechanism: unspecified Qualified Code(s): I63.9 - Cerebral infarction, unspecified (3) UTI (urinary tract infection) Qualifiers: Urinary tract infection type: site unspecified Hematuria presence: without hematuria Qualified Code(s): N39.0 - Urinary tract infection, site not specified (4) Atrial fibrillation Qualifiers: Atrial fibrillation type: chronic Qualified Code(s): I48.2 - Chronic atrial fibrillation (5) HTN (hypertension) Qualifiers: Hypertension type: essential hypertension Qualified Code(s): I10 - Essential (primary) hypertension (6) Diabetes Qualifiers: Diabetes mellitus type: type 2 Diabetes mellitus terminal clerk insulin use: without fdc use Diabetes mellitus complication status: without complication Qualified Code(s): E11.9 - Type 2 diabetes mellitus without complications (7) HLD (hyperlipidemia) Qualifiers: Hyperlipidemia type: unspecified Qualified Code(s): E78.5 - Hyperlipidemia, unspecified
[2019-05-24] MEDS ORDERED: Furosemide 40 MG/4 ML VIAL IVP SCH (09:00)
[2019-05-24] MEDS ORDERED: cloNIDine HCl 0.1 MG TABLET PO PRN (11:04)
[2019-05-24] MEDS ORDERED: Acetaminophen 325 MG TABLET PO PRN (11:04)
[2019-05-24] MEDS ORDERED: Metoprolol XL (24 HR) Succ 25 MG TAB.ER.24H PO STA (11:08)
--- NOTE | 2019-05-24 13:56 | Discharge Summary ---
- NOTES TO OUTPATIENT PROVIDER Notes to Outpatient Provider: Patient is a 83-year-old female with past medical history of atrial fibrillation currently on XRELTO, TIA, hypertension, hyperlipidemia presented to the emergency room yesterday with c/o AMS. Stroke alert was called upon presentation. [facility] telestroke consult obtained and it was decided not to give t-PA. Patient's initial workup including CT head, CTA head and neck, MRI, EEG and echo with saline study was unremarkable. Patient improved next day. However, she went back to the AMS state agian this morning. Patient continued waxing and waning symptoms. I discussed plan [facility] and it was decided to transfer patient to tertiary center to get possible 24 hr vEEG monitoring. Orders not resulted at time of discharge: Pending orders 05/23/19 13:41 Culture,Urine [RM] Stat Date of Encounter: 05/24/19 Time of Encounter: 13:53 - Discharge Diagnosis (1) Altered mental status Priority: Primary Status: Acute Qualifiers: Altered mental status type: unspecified Qualified Code(s): R41.82 - Altered mental status, unspecified (2) CVA (cerebral vascular accident) Priority: Secondary Status: Acute Qualifiers: CVA mechanism: unspecified Qualified Code(s): I63.9 - Cerebral infarction, unspecified (3) UTI (urinary tract infection) Priority: Secondary Status: Acute Qualifiers: Urinary tract infection type: site unspecified Hematuria presence: without hematuria Qualified Code(s): N39.0 - Urinary tract infection, site not specified (4) Atrial fibrillation Priority: Secondary Status: Chronic Qualifiers: Atrial fibrillation type: chronic Qualified Code(s): I48.2 - Chronic atrial fibrillation (5) HTN (hypertension) Priority: Secondary Status: Chronic Qualifiers: Hypertension type: essential hypertension Qualified Code(s): I10 - Essential (primary) hypertension (6) Diabetes Priority: Secondary Status: Chronic Qualifiers: Diabetes mellitus type: type 2 Diabetes mellitus terminal manager insulin use: without terminal manager use Diabetes mellitus complication status: without complication Qualified Code(s): E11.9 - Type 2 diabetes mellitus without complications (7) HLD (hyperlipidemia) Priority: Secondary Status: Chronic Qualifiers: Hyperlipidemia type: unspecified Qualified Code(s): E78.5 - Hyperlipidemia, unspecified (8) DVT prophylaxis Priority: Secondary Status: Acute Hospital course: Ms. Beltran is a 83 year old female Discharge discussed with: patient, nurse, otm consultant - Time Spent with Patient Total time spent providing and/or coordinating discharge services: 40 - Discharge Medications Prescriptions: Continued Omeprazole [PriLOSEC] 20 mg PO DAILY Potassium Chloride [K-Tab ER] 20 meq PO DAILY Metoprolol Succinate 25 mg PO DAILY Aspirin Enteric Coated [Aspirin EC] 81 mg PO QAM Acetaminophen [Tylenol] 650 mg PO Q6HR PRN 1 Days #8 tablet PRN Reason: Moderate Pain Atorvastatin [Lipitor] 80 mg PO HS cloNIDine HCl [CloNIDine HCl] 0.1 mg PO DAILY PRN PRN Reason: sbp>160 Furosemide [Lasix] 40 mg PO DAILY Lisinopril [Zestril] 40 mg PO DAILY Mesalamine [Apriso] 0.75 gm PO QAM Rivaroxaban [Xarelto] 15 mg PO 1700 #30 tablet amLODIPine [Norvasc] 5 mg PO HS tablet Paroxetine [Paxil] 10 mg PO DAILY tablet Lactobacillus [Culturelle] 1 each PO BID cap.sprink Lidocaine Patch [Lidoderm 5% patch] 1 each TP DAILY adh..patch Home Medications: Omeprazole [PriLOSEC] 20 mg PO DAILY 09/11/15 [History] Potassium Chloride [K-Tab ER] 20 meq PO DAILY 05/31/16 [History] Metoprolol Succinate 25 mg PO DAILY 07/28/17 [History] Aspirin Enteric Coated [Aspirin EC] 81 mg PO QAM 03/01/19 [History] Rivaroxaban [Xarelto] 15 mg PO 1700 #30 tablet 04/05/19 [Rx] Acetaminophen [Tylenol] 650 mg PO Q6HR PRN 1 Days #8 tablet 05/03/19 [Rx] Lactobacillus [Culturelle] 1 each PO BID cap.sprink 05/22/19 [Rx] Lidocaine Patch [Lidoderm 5% patch] 1 each TP DAILY adh..patch 05/22/19 [Rx] Paroxetine [Paxil] 10 mg PO DAILY tablet 05/22/19 [Rx] amLODIPine [Norvasc] 5 mg PO HS tablet 05/22/19 [Rx] Atorvastatin [Lipitor] 80 mg PO HS 05/23/19 [History] Furosemide [Lasix] 40 mg PO DAILY 05/23/19 [History] Lisinopril [Zestril] 40 mg PO DAILY 05/23/19 [History] Mesalamine [Apriso] 0.75 gm PO QAM 05/23/19 [History] cloNIDine HCl [CloNIDine HCl] 0.1 mg PO DAILY PRN 05/23/19 [History] Allergies/Adverse Reactions: Allergy/AdvReac Type Severity Reaction Status Date / Time ampicillin Allergy Hives Verified 03/01/19 10:05 morphine AdvReac Hallucinati Verified 03/01/19 10:05 ng nitrofurantoin AdvReac Gastrointestinal Verified 03/22/19 09:26 [From Macrobid] Upset Date of admission: 05/23/19 13:35 Primary care physician: Isabell Dillard Consults: 05/23/19 13:38 Consult to Occupational Therapy [CONS] Routine Comment: Evaluate, develop and implement POC Reason for Consult: S/p Stroke Does patient have active BEDREST order?: No Is patient medically & hemodynamically stable?: Yes Consult to Physical Therapy [CONS] Routine Comment: Evaluate, develop and implement POC Reason for Consult: S/p stroke Does patient have active BEDREST order?: No Is patient medically & hemodynamically stable?: Yes 05/23/19 15:05 Consult to Neurology [CONS] Stat Consulting Provider: Neurology [facility] Reason for Consult: CVA and AMS Call Completed: Yes 05/23/19 15:22 Consult to Manager Material [CONS] Routine Reason for SW Consult: dc planning 05/23/19 17:05 Consult to Interpret Exam [CONS] Routine Consulting Provider: Aracelis Melendez I Consult to Interpret Exam: Interpret EEG Discharging clinician: Devan Galvez - Constitutional Vitals: Temp Pulse Resp BP Pulse Ox 97.6 F 89 16 141/93 99 05/24/19 08:28 05/24/19 08:28 05/24/19 08:28 05/24/19 08:28 05/24/19 08:28 General appearance: Present: A&O X 1, disheveled Exam: General: A & O 1 non not cooperative HENNT: PERRLA. Head atraumatic and makes supple CVS S1 and S2 regular, no murmur RS: Clear to air entry bilaterally, no wheeze, no crackles Abdomen: Soft and nontender. Bowel sounds normal 4 Extremities: No cyanosis, clubbing, and edema Neurology: Unable to assess due to non cooperation - Patient Status Disposition: Transfer Short-Term Hosp Condition: Good Overall status at discharge: patient is not back to baseline - Discharge Instructions Follow Up With: Isabell Dillard MD [Primary Care Provider] - (APPOINTMENT HAS BEEN REQUESTED.) - Diet and Activity Activity: increase activity as tolerated Diet: diabetic diet, low salt diet
[2019-05-24] MEDS ORDERED: amLODIPine 5 MG TABLET PO SCH (21:00)
[2019-05-24] MEDS ORDERED: Lactobacillus 1 EACH CAP.SPRINK PO SCH (21:00)
[2019-05-25] MEDS ORDERED: Aspirin Enteric Coated 81 MG Tablet PO SCH (09:00)
[2019-05-25] MEDS ORDERED: Lisinopril 20 MG TABLET PO SCH (09:00)
[2019-05-25] MEDS ORDERED: Furosemide 40 MG TABLET PO SCH (09:00)
[2019-05-25] MEDS ORDERED: Metoprolol XL (24 HR) Succ 25 MG TAB.ER.24H PO SCH (09:00)
[2019-05-25] MEDS ORDERED: Mesalamine 250 MG CAPSULE.ER PO SCH (09:00)
== END 2019-05-24 14:44 | disposition short-term general hospital (02) ==
LOC: EMEROOARM 06:41 → 3BNU 06:41 → SUATTDRO 13:35 → 3BNU 14:36
PROVIDERS: ADMIT Pharmacist; ATTEND Family Medicine

== ENCOUNTER 2019-07-27 12:30 | Observation (INO) ==
[2019-07-27] MEDS ORDERED: *HR* LORazepam 2 MG/ML VIAL IVP ONE (15:42)
[2019-07-27] MEDS ORDERED: Naloxone 0.4 MG/ML INJ IVP PRN (15:44)
[2019-07-27] MEDS ORDERED: Ondansetron 4 MG/2 ML VIAL IVP PRN (15:44)
[2019-07-27] MEDS: *HR* Rivaroxaban 15 MG TABLET PO SCH (17:43)
[2019-07-27] MEDS: Ringers Solution, Lactated 1,000 ML IVC SCH (17:43)
[2019-07-27] MEDS: Acetaminophen 325 MG TABLET PO PRN (20:01)
[2019-07-27] MEDS: Melatonin 3 MG TABLET PO SCH (20:01)
[2019-07-27] MEDS: amLODIPine 5 MG TABLET PO SCH (20:02)
[2019-07-27] MEDS: *HR* OxyCODONE Immed Rel 5 MG TABLET PO PRN (21:59)
[2019-07-28 02:39] LABS: Hemoglobin 8.4 g/dL (11.5-15.4); Mean Corpuscular Hemoglobin 29.3 pg (28.0-33.3); Mean Corpuscular Volume 97.6 fL (83.0-100.0); Mean Platelet Volume 9.4 fL (9.4-12.4); Platelet Count 324 K/mcL (140-400); Red Blood Count 2.87 M/mcL (3.82-4.97); Red Cell Distribution Width 15.4 % (11.5-14.5); White Blood Count 8.3 K/mcL (4.3-11.1)
[2019-07-28 03:00] LABS: BUN/Creatinine Ratio 21 (6-26); Blood Urea Nitrogen 22 mg/dL (8-23); Calcium 8.8 mg/dL (8.6-10.3); Carbon Dioxide 25 mEq/L (23-29); Chloride 107 mEq/L (98-107); Glucose 112 mg/dL (70-105); Magnesium 1.8 mg/dL (1.6-2.6); Osmolality,Calculated 292 (280-300); Potassium 3.7 mEq/L (3.5-5.1); Sodium 139 mEq/L (136-145); eGFR For African Americans > 60 (> 60); eGFR For Non-African Americans 51 (> 60)
[2019-07-28] MEDS: Ringers Solution, Lactated 1,000 ML IVC SCH (03:10)
[2019-07-28] MEDS: MESALAMINE 0.75 GM PO SCH (09:09)
[2019-07-28] MEDS: Lisinopril 20 MG TABLET PO SCH (09:09)
[2019-07-28] MEDS: Furosemide 20 MG TABLET PO SCH (09:09)
[2019-07-28] MEDS: Aspirin Enteric Coated 81 MG Tablet PO SCH (09:09)
[2019-07-28] MEDS: Metoprolol XL (24 HR) Succ 25 MG TAB.ER.24H PO SCH (09:09)
[2019-07-28] MEDS: Acetaminophen 325 MG TABLET PO PRN ×2 (11:10→20:20)
[2019-07-28] MEDS: *HR* Rivaroxaban 15 MG TABLET PO SCH (17:07)
[2019-07-28] MEDS: amLODIPine 5 MG TABLET PO SCH (20:20)
[2019-07-28] MEDS: Melatonin 3 MG TABLET PO SCH (20:20)
[2019-07-28] MEDS: *HR* OxyCODONE Immed Rel 5 MG TABLET PO PRN (23:12)
[2019-07-29] MEDS: Aspirin Enteric Coated 81 MG Tablet PO SCH (08:08)
[2019-07-29] MEDS: Lisinopril 20 MG TABLET PO SCH (08:08)
[2019-07-29] MEDS: Furosemide 20 MG TABLET PO SCH (08:09)
[2019-07-29] MEDS: Metoprolol XL (24 HR) Succ 25 MG TAB.ER.24H PO SCH (08:09)
[2019-07-29] MEDS: MESALAMINE 0.75 GM PO SCH (08:14)
[2019-07-29] MEDS: *HR* Rivaroxaban 15 MG TABLET PO SCH (16:44)
[2019-07-29] MEDS: Acetaminophen 325 MG TABLET PO PRN ×2 (16:44→23:01)
[2019-07-29] MEDS: amLODIPine 5 MG TABLET PO SCH (20:24)
[2019-07-29] MEDS: Melatonin 3 MG TABLET PO SCH (20:24)
[2019-07-30] MEDS: MESALAMINE 0.75 GM PO SCH (08:11)
[2019-07-30] MEDS: Aspirin Enteric Coated 81 MG Tablet PO SCH (08:11)
[2019-07-30] MEDS: Metoprolol XL (24 HR) Succ 25 MG TAB.ER.24H PO SCH (08:11)
[2019-07-30] MEDS: Furosemide 20 MG TABLET PO SCH (08:11)
[2019-07-30] MEDS: Lisinopril 20 MG TABLET PO SCH (08:11)
[2019-07-30] MEDS: *HR* Rivaroxaban 15 MG TABLET PO SCH (15:48)
[2019-07-30] MEDS: Melatonin 3 MG TABLET PO SCH (20:26)
[2019-07-30] MEDS: amLODIPine 5 MG TABLET PO SCH (20:27)
[2019-07-31] MEDS: Furosemide 20 MG TABLET PO SCH (09:00)
[2019-07-31] MEDS: Aspirin Enteric Coated 81 MG Tablet PO SCH (09:00)
[2019-07-31] MEDS: Lisinopril 20 MG TABLET PO SCH (09:00)
[2019-07-31] MEDS: MESALAMINE 0.75 GM PO SCH (09:09)
[2019-07-31] MEDS: Metoprolol XL (24 HR) Succ 25 MG TAB.ER.24H PO SCH (09:13)
[2019-07-31] MEDS: *HR* Rivaroxaban 15 MG TABLET PO SCH (16:51)
[2019-07-31] MEDS: amLODIPine 5 MG TABLET PO SCH (21:08)
[2019-07-31] MEDS: Melatonin 3 MG TABLET PO SCH (21:08)
[2019-07-31] MEDS: Acetaminophen 325 MG TABLET PO PRN (22:26)
[2019-07-31] MEDS ORDERED: tiZANidine 4 MG TABLET PO ONE (23:20)
[2019-08-01 07:17] LABS: Hematocrit 26.2 % (35.3-44.9); Mean Corpuscular HGB Conc 30.5 g/dL (31.6-35.5); Mean Corpuscular Hemoglobin 29.7 pg (28.0-33.3); Mean Corpuscular Volume 97.4 fL (83.0-100.0); Mean Platelet Volume 9.2 fL (9.4-12.4); Platelet Count 314 K/mcL (140-400); Red Blood Count 2.69 M/mcL (3.82-4.97); Red Cell Distribution Width 15.3 % (11.5-14.5); White Blood Count 6.7 K/mcL (4.3-11.1)
[2019-08-01 07:37] LABS: BUN/Creatinine Ratio 19 (6-26); Blood Urea Nitrogen 18 mg/dL (8-23); Calcium 8.6 mg/dL (8.6-10.3); Carbon Dioxide 26 mEq/L (23-29); Chloride 106 mEq/L (98-107); Glucose 112 mg/dL (70-105); Osmolality,Calculated 291 (280-300); Potassium 3.8 mEq/L (3.5-5.1); Sodium 139 mEq/L (136-145); eGFR For African Americans > 60 (> 60); eGFR For Non-African Americans 58 (> 60)
[2019-08-01] MEDS: Metoprolol XL (24 HR) Succ 25 MG TAB.ER.24H PO SCH (07:43)
[2019-08-01] MEDS: Aspirin Enteric Coated 81 MG Tablet PO SCH (07:43)
[2019-08-01] MEDS: Lisinopril 20 MG TABLET PO SCH (07:44)
[2019-08-01] MEDS: MESALAMINE 0.75 GM PO SCH (07:44)
[2019-08-01] MEDS: Furosemide 20 MG TABLET PO SCH (07:44)
[2019-08-01] MEDS: *HR* Rivaroxaban 15 MG TABLET PO SCH (17:24)
[2019-08-01] MEDS: Melatonin 3 MG TABLET PO SCH (20:01)
[2019-08-01] MEDS: amLODIPine 5 MG TABLET PO SCH (20:01)
[2019-08-01] MEDS: Acetaminophen 325 MG TABLET PO PRN (21:21)
[2019-08-02 07:28] VITALS: BP 138/68
== END 2019-08-02 13:50 ==
LOC: 3BNU → SUATTDRO 13:50
PROVIDERS: ADMIT Internal Medicine; ATTEND Internal Medicine

== ENCOUNTER 2020-04-27 15:19 | Observation (INO) ==
[2020-04-27 16:23] LABS: Eosinophils % 0.7 %
[2020-04-27 16:25] LABS: Basophils # 0.1 K/mcL (0.0-0.2); Hematocrit 22.9 % (35.3-44.9); Immature Granulocytes % 0.3 % (0-4); Lymphocytes # 0.9 K/mcL (0.6-4.6); Lymphocytes % 15.2 %; Mean Corpuscular HGB Conc 25.3 g/dL (31.6-35.5); Mean Corpuscular Volume 75.1 fL (83.0-100.0); Mean Platelet Volume 9.7 fL (9.4-12.4); Monocytes # 0.7 K/mcL (0.0-1.3); Monocytes % 11.3 %; Neutrophils # 4.2 K/mcL (1.6-8.9); Nucleated Red Blood Cells 0.7 /100 WBC (0); Platelet Count 298 K/mcL (140-400); Red Blood Count 3.05 M/mcL (3.82-4.97); Red Cell Distribution Width 19.1 % (11.5-14.5); Segmented Neutrophils % 71.5 %; White Blood Count 5.8 K/mcL (4.3-11.1)
[2020-04-27 16:34] LABS: INR 2.6; Prothrombin Time 29.6 Seconds (9.4-12.1)
[2020-04-27 16:37] LABS: Activated Partial Thrombo Time 38.2 Seconds (26.0-36.0)
[2020-04-27 16:55] LABS: BUN/Creatinine Ratio 17 (6-26); Blood Urea Nitrogen 15 mg/dL (8-23); Carbon Dioxide 26 mEq/L (23-29); Chloride 108 mEq/L (98-107); Glucose 117 mg/dL (70-105); Osmolality,Calculated 296 (280-300); Potassium 3.3 mEq/L (3.5-5.1); Sodium 142 mEq/L (136-145); Troponin I < 0.03 ng/mL (< 0.04); eGFR For African Americans > 60 (> 60); eGFR For Non-African Americans > 60 (> 60)
[2020-04-27 17:13] LABS: Hemoglobin 5.8 g/dL (11.5-15.4)
[2020-04-27 17:16] LABS: Anisocytosis 2+ (Not Present); Hypochromasia Present (Not Present); Platelet Estimate Normal (Normal)
[2020-04-27 17:17] LABS: Microcytosis Present (Not Present)
[2020-04-27 17:18] LABS: Ovalocytes 1+ (Not Present); Tear Drop Cells 1+ (Not Present)
[2020-04-27] MEDS ORDERED: 0.9 % Sodium Chloride 250 ML ONE (19:29)
[2020-04-27] MEDS ORDERED: Naloxone 0.4 MG/ML INJ IVP PRN (21:04)
[2020-04-27] MEDS ORDERED: Ondansetron 4 MG/2 ML VIAL IVP PRN (21:04)
[2020-04-27] MEDS ORDERED: Acetaminophen 325 MG TABLET PO PRN (21:04)
[2020-04-27] MEDS ORDERED: *HR* Dextrose 50 % in Water (Vial) 50 ML VIAL IVP PRN (21:34)
[2020-04-27] MEDS ORDERED: D5% in Water 1,000 ML IVC PRN (21:34)
[2020-04-27] MEDS ORDERED: Dextrose Gel 15 GM/37.5 ML TUBE PO PRN ×2 (21:34)
[2020-04-27 22:09] LABS: Bilirubin,Urine Negative (Negative); Blood,Urine Negative (Negative); Clarity,Urine Clear (Clear); Color,Urine Light-Yellow (Yellow); Glucose,Urine (UA) Normal (Normal); Ketones,Urine Negative (Negative); Leukocyte Esterase,Urine Trace (Negative); Mucus,Urine Few per lpf (None-Few); Nitrite,Urine Negative (Negative); Protein,Urine 100 mg/dL (Neg-Trace); RBC,Urine 0-3 per hpf (0-3); Specific Gravity,Urine 1.016 (1.010-1.025); Squamous Epithelial Cell,Urine Few per hpf (None-Few); Urobilinogen,Urine Normal (Normal)
[2020-04-27 22:37] LABS: Hematocrit 26.3 % (35.3-44.9); Mean Corpuscular HGB Conc 26.6 g/dL (31.6-35.5); Mean Corpuscular Hemoglobin 20.2 pg (28.0-33.3); Platelet Count 287 K/mcL (140-400); Red Blood Count 3.46 M/mcL (3.82-4.97); Red Cell Distribution Width 19.4 % (11.5-14.5); White Blood Count 5.6 K/mcL (4.3-11.1)
[2020-04-28 00:43] LABS: Protein/Creatinine Ratio,Urine 2.56 mg/mg (0.00-0.20)
[2020-04-28] MEDS: Insulin LISPRO 300 UNITS/3 ML VIAL SQ SCH ×4 (01:03→17:53)
[2020-04-28] MEDS: Melatonin 3 MG TABLET PO SCH ×2 (01:03→22:45)
[2020-04-28] MEDS ORDERED: 0.9 % Sodium Chloride 250 ML ONE (01:39)
[2020-04-28 01:46] LABS: Basophils % 0.9 %; Nucleated Red Blood Cells 0.7 /100 WBC (0)
[2020-04-28 01:47] LABS: Basophils # 0.1 K/mcL (0.0-0.2); Eosinophils # 0.1 K/mcL (0.0-0.6); Eosinophils % 1.3 %; Hematocrit 26.2 % (35.3-44.9); Immature Granulocytes % 0.4 % (0-4); Immature Reticulocyte % 27.4 % (11.0-38.0); Lymphocytes # 0.8 K/mcL (0.6-4.6); Lymphocytes % 14.4 %; Mean Corpuscular HGB Conc 26.7 g/dL (31.6-35.5); Mean Corpuscular Hemoglobin 20.4 pg (28.0-33.3); Mean Corpuscular Volume 76.4 fL (83.0-100.0); Mean Platelet Volume 10.3 fL (9.4-12.4); Monocytes # 0.5 K/mcL (0.0-1.3); Monocytes % 8.8 %; Platelet Count 301 K/mcL (140-400); Red Blood Count 3.43 M/mcL (3.82-4.97); Retculocyte # 0.06 M/mcL (0.05-0.10); Reticulocyte % 1.8 % (1.6-2.8); Segmented Neutrophils % 74.2 %; White Blood Count 5.6 K/mcL (4.3-11.1)
[2020-04-28 01:54] LABS: Neutrophils # 4.2 K/mcL (1.6-8.9)
[2020-04-28 02:12] LABS: % Iron Saturation 2 % (15-50); Alanine Aminotransferase 8 Units/L (7-52); Albumin 3.8 g/dL (3.5-5.7); Albumin/Globulin Ratio 1.6 (1.1-2.2); Alkaline Phosphatase 65 Units/L (34-104); Aspartate Amino Transferase 9 Units/L (13-39); BUN/Creatinine Ratio 15 (6-26); Bilirubin,Total 0.8 mg/dL (0.3-1.0); Blood Urea Nitrogen 11 mg/dL (8-23); Calcium 8.6 mg/dL (8.6-10.3); Carbon Dioxide 22 mEq/L (23-29); Chloride 109 mEq/L (98-107); Globulin 2.4 g/dL (2.4-3.5); Glucose 111 mg/dL (70-105); Iron 10 mcg/dL (50-170); Lactate Dehydrogenase 141 Units/L (140-271); Magnesium 1.9 mg/dL (1.6-2.6); Osmolality,Calculated 294 (280-300); Phosphorous 3.2 mg/dL (2.7-4.5); Potassium 3.2 mEq/L (3.5-5.1); Sodium 142 mEq/L (136-145); Total Protein 6.2 g/dL (6.4-8.9); Transferrin 324 mg/dL (203-362); eGFR For African Americans > 60 (> 60); eGFR For Non-African Americans > 60 (> 60)
[2020-04-28 02:28] LABS: Folate 13.8 ng/mL (3.0-16.0)
[2020-04-28 02:54] LABS: Anisocytosis 2+ (Not Present); Hypochromasia Present (Not Present); Microcytosis Present (Not Present); Ovalocytes 1+ (Not Present); Platelet Estimate Normal (Normal); Poikilocytosis 1+ (Not Present)
[2020-04-28 06:04] LABS: Hematocrit 28.3 % (35.3-44.9); Hemoglobin 7.9 g/dL (11.5-15.4); Mean Corpuscular HGB Conc 27.9 g/dL (31.6-35.5); Mean Corpuscular Hemoglobin 21.3 pg (28.0-33.3); Mean Corpuscular Volume 76.3 fL (83.0-100.0); Mean Platelet Volume 9.2 fL (9.4-12.4); Platelet Count 258 K/mcL (140-400); Red Blood Count 3.71 M/mcL (3.82-4.97); Red Cell Distribution Width 18.4 % (11.5-14.5); White Blood Count 6.1 K/mcL (4.3-11.1)
[2020-04-28] MEDS ORDERED: Potassium Chloride 20 MEQ, Lidocaine 1% 2 ML in 0.9 % Sodium Chloride 250 ML IVPB ONE (07:31)
[2020-04-28] MEDS ORDERED: Furosemide 20 MG TABLET PO SCH (09:00)
[2020-04-28] MEDS ORDERED: MESALAMINE 0.75 GM PO SCH (09:00)
[2020-04-28] MEDS: Metoprolol XL (24 HR) Succ 25 MG TAB.ER.24H PO SCH (09:16)
[2020-04-28] MEDS: Pantoprazole 40 MG VIAL IVP SCH ×2 (09:16→17:44)
[2020-04-28] MEDS: amLODIPine 5 MG TABLET PO SCH (09:16)
[2020-04-28] MEDS ORDERED: SODIUM CHLORIDE/NAHCO3/KCL/PEG 4,000 ML SOLN.RECON PO ONE (17:00)
[2020-04-29 01:25] LABS: Immature Granulocytes % 0.5 % (0-4); Nucleated Red Blood Cells 0.8 /100 WBC (0)
[2020-04-29 01:26] LABS: Basophils # 0.1 K/mcL (0.0-0.2); Basophils % 0.8 %; Eosinophils # 0.1 K/mcL (0.0-0.6); Eosinophils % 0.6 %; Hemoglobin 8.8 g/dL (11.5-15.4); Lymphocytes # 0.8 K/mcL (0.6-4.6); Lymphocytes % 10.1 %; Mean Corpuscular HGB Conc 27.5 g/dL (31.6-35.5); Mean Corpuscular Hemoglobin 21.2 pg (28.0-33.3); Mean Corpuscular Volume 76.9 fL (83.0-100.0); Mean Platelet Volume 9.8 fL (9.4-12.4); Monocytes # 0.7 K/mcL (0.0-1.3); Monocytes % 8.3 %; Neutrophils # 6.3 K/mcL (1.6-8.9); Platelet Count 304 K/mcL (140-400); Red Blood Count 4.16 M/mcL (3.82-4.97); Red Cell Distribution Width 19.1 % (11.5-14.5); Segmented Neutrophils % 79.7 %; White Blood Count 7.9 K/mcL (4.3-11.1)
[2020-04-29 01:43] LABS: BUN/Creatinine Ratio 12 (6-26); Blood Urea Nitrogen 8 mg/dL (8-23); Carbon Dioxide 24 mEq/L (23-29); Chloride 106 mEq/L (98-107); Glucose 126 mg/dL (70-105); Magnesium 1.7 mg/dL (1.6-2.6); Osmolality,Calculated 292 (280-300); Phosphorous 2.7 mg/dL (2.7-4.5); Potassium 3.5 mEq/L (3.5-5.1); Sodium 141 mEq/L (136-145); eGFR For African Americans > 60 (> 60); eGFR For Non-African Americans > 60 (> 60)
[2020-04-29 02:09] LABS: Hypochromasia Present (Not Present); Poikilocytosis 1+ (Not Present)
[2020-04-29 02:10] LABS: Anisocytosis 1+ (Not Present); Microcytosis Present (Not Present); Ovalocytes 1+ (Not Present); Platelet Estimate Normal (Normal)
[2020-04-29] MEDS: Insulin LISPRO 300 UNITS/3 ML VIAL SQ SCH ×3 (04:14→14:27)
[2020-04-29] MEDS: Pantoprazole 40 MG VIAL IVP SCH (06:00)
[2020-04-29] MEDS: Nystatin POWDER 30 GM BOTTLE TP SCH ×2 (06:01→10:00)
[2020-04-29] MEDS: amLODIPine 5 MG TABLET PO SCH (09:59)
[2020-04-29] MEDS: Metoprolol XL (24 HR) Succ 25 MG TAB.ER.24H PO SCH (09:59)
[2020-04-29] MEDS ORDERED: *HR* Propofol 200 MG/20 ML VIAL IVP ONE (12:53)
[2020-04-29] MEDS ORDERED: *HR* PHENYLEPHRINE 1,000 MCG/10 ML SYRINGE IVP ONE (12:55)
[2020-04-29] MEDS ORDERED: Ferumoxytol 510 MG in 0.9 % Sodium Chloride 100 ML IVPB ONE (14:32)
[2020-04-29] MEDS ORDERED: amLODIPine 5 MG TABLET PO ONE (14:45)
[2020-04-29] MEDS ORDERED: lisinopriL 20 MG TABLET PO SCH (14:45)
[2020-04-29 15:29] VITALS: BP 159/85
== END 2020-04-29 18:54 | disposition home health service (06) ==
LOC: 3ANU 15:19 → EMEROOARM 15:19 → 3ANU 19:45
PROVIDERS: ADMIT Family Medicine; ATTEND Family Medicine

== ENCOUNTER 2021-09-15 01:46 | Inpatient (IN) ==
[2021-09-15] MEDS ORDERED: Aspirin 81 MG TAB.CHEW PO ONE (01:57)
[2021-09-15] MEDS ORDERED: Ondansetron 4 MG/2 ML VIAL IVP ONE (02:13)
[2021-09-15 02:25] LABS: Basophils # 0.1 K/mcL (0.0-0.2); Basophils % 0.4 %; Eosinophils % 0.2 %; Hematocrit 39.2 % (35.3-44.9); Hemoglobin 12.5 g/dL (11.5-15.4); Immature Granulocytes % 0.4 % (0-4); Lymphocytes # 0.6 K/mcL (0.6-4.6); Lymphocytes % 4.6 %; Mean Corpuscular HGB Conc 31.9 g/dL (31.6-35.5); Mean Platelet Volume 9.4 fL (9.4-12.4); Monocytes # 0.5 K/mcL (0.0-1.3); Monocytes % 4.1 %; Neutrophils # 11.1 K/mcL (1.6-8.9); Platelet Count 273 K/mcL (140-400); Red Blood Count 4.17 M/mcL (3.82-4.97); Red Cell Distribution Width 14.6 % (11.5-14.5); Segmented Neutrophils % 90.3 %; White Blood Count 12.3 K/mcL (4.3-11.1)
[2021-09-15 02:29] LABS: Alanine Aminotransferase 8 Units/L (7-52); Albumin/Globulin Ratio 1.4 (1.1-2.2); Alkaline Phosphatase 60 Units/L (34-104); Aspartate Amino Transferase 13 Units/L (13-39); BUN/Creatinine Ratio 19 (6-26); Bilirubin,Direct 0.1 mg/dL (0.0-0.2); Bilirubin,Indirect 0.3 mg/dL (0.0-1.0); Bilirubin,Total 0.4 mg/dL (0.3-1.0); Blood Urea Nitrogen 23 mg/dL (8-23); Carbon Dioxide 19 mEq/L (23-29); Chloride 109 mEq/L (98-107); Globulin 2.9 g/dL (2.4-3.5); Glucose 191 mg/dL (70-105); Osmolality,Calculated 293 (280-300); Potassium 3.5 mEq/L (3.5-5.1); Sodium 137 mEq/L (136-145); Total Protein 6.9 g/dL (6.4-8.9); Troponin I < 0.03 ng/mL (< 0.04); eGFR For African Americans 53 (> 60); eGFR For Non-African Americans 44 (> 60)
[2021-09-15] MEDS ORDERED: Famotidine 20 MG/2 ML VIAL IVP ONE (02:33)
[2021-09-15 02:50] LABS: INR 1.6; Prothrombin Time 17.4 Seconds (9.4-12.1)
[2021-09-15 02:53] LABS: Activated Partial Thrombo Time 36.4 Seconds (26.0-36.0)
[2021-09-15] MEDS ORDERED: Metoclopramide 10 MG/2 ML VIAL IVP ONE (04:07)
[2021-09-15] MEDS ORDERED: Isovue-370 500 ML BOTTLE IVP ONE (04:17)
[2021-09-15 05:09] LABS: Influenza A PCR Negative (Negative); Influenza B PCR Negative (Negative); Resp. Syncytial Virus PCR Negative (Negative); SARS-CoV-2 by PCR (In House) Negative (Negative)
[2021-09-15] MEDS ORDERED: *HR* Midazolam HCl 2 MG/2 ML VIAL IVP ONE (06:07)
[2021-09-15] MEDS ORDERED: Ondansetron 4 MG/2 ML VIAL IVP PRN (06:26)
[2021-09-15] MEDS ORDERED: Naloxone 0.4 MG/ML INJ IVP PRN (06:26)
[2021-09-15] MEDS ORDERED: Tetracaine/Benzocaine/Butamben 1 SPRAY AEROSOL ONE (06:31)
[2021-09-15] MEDS ORDERED: Tetracaine/Benzocaine/Butamben 1 SPRAY AEROSOL MM ONE (06:33)
[2021-09-15] MEDS ORDERED: Ringers Solution, Lactated 1,000 ML IVC SCH (10:00)
[2021-09-15] MEDS: Acetaminophen IV 500 MG/50 ML BAG IVPB SCH ×3 (13:33→23:17)
[2021-09-15] MEDS ORDERED: *HR* Metoprolol 5 MG/5 ML VIAL IVP PRN (15:35)
[2021-09-15] MEDS ORDERED: *HR* Heparin 5,000 UNIT/ML VIAL IVP PRN ×2 (15:37)
[2021-09-15] MEDS: Ringers Solution, Lactated 1,000 ML IVC SCH (16:18)
[2021-09-15] MEDS: Heparin 25,000UNIT/250ML 1/2NS 25,000 UNIT/250 ML IV.SOLN IVC SCH (17:01)
[2021-09-15] MEDS: Pantoprazole 40 MG VIAL IVP SCH (17:06)
[2021-09-16 05:33] LABS: Heparin anti-factor XA UFH 0.75 IU/mL (0.30-0.70); INR 1.2
[2021-09-16 05:43] LABS: Basophils # 0.1 K/mcL (0.0-0.2); Basophils % 0.5 %; Eosinophils % 0.1 %; Hematocrit 36.5 % (35.3-44.9); Hemoglobin 11.6 g/dL (11.5-15.4); Immature Granulocytes % 0.3 % (0-4); Lymphocytes # 0.7 K/mcL (0.6-4.6); Lymphocytes % 7.1 %; Mean Corpuscular HGB Conc 31.8 g/dL (31.6-35.5); Mean Corpuscular Hemoglobin 30.7 pg (28.0-33.3); Mean Corpuscular Volume 96.6 fL (83.0-100.0); Mean Platelet Volume 9.4 fL (9.4-12.4); Monocytes # 0.9 K/mcL (0.0-1.3); Monocytes % 9.6 %; Neutrophils # 7.9 K/mcL (1.6-8.9); Platelet Count 227 K/mcL (140-400); Red Blood Count 3.78 M/mcL (3.82-4.97); Red Cell Distribution Width 14.9 % (11.5-14.5); Segmented Neutrophils % 82.4 %; White Blood Count 9.5 K/mcL (4.3-11.1)
[2021-09-16] MEDS: Acetaminophen IV 500 MG/50 ML BAG IVPB SCH ×3 (05:50→17:48)
[2021-09-16] MEDS: Ringers Solution, Lactated 1,000 ML IVC SCH (05:53)
[2021-09-16] MEDS: Pantoprazole 40 MG VIAL IVP SCH (07:48)
[2021-09-16 08:21] LABS: BUN/Creatinine Ratio 23 (6-26); Blood Urea Nitrogen 23 mg/dL (8-23); Calcium 8.5 mg/dL (8.6-10.3); Carbon Dioxide 22 mEq/L (23-29); Chloride 109 mEq/L (98-107); Glucose 128 mg/dL (70-105); Magnesium 1.6 mg/dL (1.6-2.6); Osmolality,Calculated 301 (280-300); Sodium 143 mEq/L (136-145); eGFR For African Americans > 60 (> 60); eGFR For Non-African Americans 52 (> 60)
[2021-09-16] MEDS: Heparin 25,000UNIT/250ML 1/2NS 25,000 UNIT/250 ML IV.SOLN IVC SCH (14:37)
[2021-09-17] MEDS: Acetaminophen IV 500 MG/50 ML BAG IVPB SCH ×2 (01:56→06:39)
[2021-09-17 03:20] LABS: Basophils # 0.1 K/mcL (0.0-0.2); Basophils % 0.8 %; Eosinophils # 0.2 K/mcL (0.0-0.6); Eosinophils % 2.4 %; Hemoglobin 10.3 g/dL (11.5-15.4); Immature Granulocytes % 0.5 % (0-4); Lymphocytes # 0.8 K/mcL (0.6-4.6); Lymphocytes % 12.7 %; Mean Corpuscular HGB Conc 31.2 g/dL (31.6-35.5); Mean Corpuscular Hemoglobin 30.7 pg (28.0-33.3); Mean Corpuscular Volume 98.2 fL (83.0-100.0); Mean Platelet Volume 9.4 fL (9.4-12.4); Monocytes # 0.6 K/mcL (0.0-1.3); Monocytes % 9.1 %; Neutrophils # 4.7 K/mcL (1.6-8.9); Platelet Count 234 K/mcL (140-400); Red Blood Count 3.36 M/mcL (3.82-4.97); Red Cell Distribution Width 14.9 % (11.5-14.5); Segmented Neutrophils % 74.5 %; White Blood Count 6.2 K/mcL (4.3-11.1)
[2021-09-17 03:32] LABS: BUN/Creatinine Ratio 17 (6-26); Blood Urea Nitrogen 15 mg/dL (8-23); Calcium 8.3 mg/dL (8.6-10.3); Carbon Dioxide 22 mEq/L (23-29); Chloride 108 mEq/L (98-107); Glucose 106 mg/dL (70-105); Magnesium 1.5 mg/dL (1.6-2.6); Osmolality,Calculated 287 (280-300); Potassium 3.7 mEq/L (3.5-5.1); Sodium 138 mEq/L (136-145); eGFR For African Americans > 60 (> 60); eGFR For Non-African Americans > 60 (> 60)
[2021-09-17] MEDS: Pantoprazole 40 MG VIAL IVP SCH (07:43)
[2021-09-17] MEDS: Metoprolol XL (24 HR) Succ 25 MG TAB.ER.24H PO SCH (10:32)
[2021-09-17] MEDS: *HR* Rivaroxaban 15 MG TABLET PO SCH (10:32)
[2021-09-17] MEDS: amLODIPine 5 MG TABLET PO SCH (12:57)
[2021-09-17 16:44] LABS: Adenovirus Not Detected (Not Detect); Bordetella Pertussis Not Detected (Not Detect); Chlamydophila pneumoniae Not Detected (Not Detect); Coronavirus 229E Not Detected (Not Detect); Coronavirus HKU1 Not Detected (Not Detect); Coronavirus NL63 Not Detected (Not Detect); Coronavirus OC43 Not Detected (Not Detect); Human Metapneumovirus Not Detected (Not Detect); Human Rhinovirus/Enterovirus Not Detected (Not Detect); Influenza A Subtype 2009 H1 Not Detected (Not Detect); Influenza B Not Detected (Not Detect); Mycoplasma pneumoniae Not Detected (Not Detect); Parainfluenza Virus 1 Not Detected (Not Detect); Parainfluenza Virus 2 Not Detected (Not Detect); Parainfluenza Virus 3 Not Detected (Not Detect); Parainfluenza Virus 4 Not Detected (Not Detect); Respiratory Syncytial Virus Not Detected (Not Detect); SARS-CoV-2 Not Detected (Not Detect)
[2021-09-17] MEDS: Ringers Solution, Lactated 1,000 ML IVC SCH (20:41)
[2021-09-18 06:11] LABS: Basophils % 0.6 %; Eosinophils # 0.2 K/mcL (0.0-0.6); Eosinophils % 2.4 %; Hematocrit 32.3 % (35.3-44.9); Hemoglobin 10.5 g/dL (11.5-15.4); Immature Granulocytes % 0.6 % (0-4); Lymphocytes # 0.8 K/mcL (0.6-4.6); Lymphocytes % 12.4 %; Mean Corpuscular HGB Conc 32.5 g/dL (31.6-35.5); Mean Corpuscular Volume 95.3 fL (83.0-100.0); Mean Platelet Volume 9.5 fL (9.4-12.4); Monocytes # 0.6 K/mcL (0.0-1.3); Monocytes % 9.7 %; Neutrophils # 4.7 K/mcL (1.6-8.9); Platelet Count 220 K/mcL (140-400); Red Blood Count 3.39 M/mcL (3.82-4.97); Red Cell Distribution Width 14.7 % (11.5-14.5); Segmented Neutrophils % 74.3 %; White Blood Count 6.4 K/mcL (4.3-11.1)
[2021-09-18 06:34] LABS: BUN/Creatinine Ratio 13 (6-26); Blood Urea Nitrogen 12 mg/dL (8-23); Calcium 8.5 mg/dL (8.6-10.3); Carbon Dioxide 28 mEq/L (23-29); Chloride 106 mEq/L (98-107); Glucose 120 mg/dL (70-105); Osmolality,Calculated 289 (280-300); Potassium 3.4 mEq/L (3.5-5.1); Sodium 139 mEq/L (136-145); eGFR For African Americans > 60 (> 60); eGFR For Non-African Americans > 60 (> 60)
[2021-09-18] MEDS: Metoprolol XL (24 HR) Succ 25 MG TAB.ER.24H PO SCH (07:31)
[2021-09-18] MEDS: amLODIPine 5 MG TABLET PO SCH (07:31)
[2021-09-18] MEDS: *HR* Rivaroxaban 15 MG TABLET PO SCH (07:32)
[2021-09-18] MEDS ORDERED: Potassium Chloride Elixir 20 MEQ/15 ML UDC PO ONE (08:04)
[2021-09-18 08:33] LABS: Estimated Average Glucose 131 mg/dl; Hemoglobin A1C 6.2 %
[2021-09-18] MEDS ORDERED: Benzonatate 100 MG CAPSULE PO PRN (10:12)
[2021-09-18] MEDS ORDERED: traZODone 50 MG TABLET PO PRN (22:53)
[2021-09-19] MEDS ORDERED: diazePAM 10 MG/2 ML SYRINGE IVP ONE (01:00)
[2021-09-19] MEDS ORDERED: Haloperidol Lactate 5 MG/ML VIAL IM ONE (01:15)
[2021-09-19] MEDS: Metoprolol XL (24 HR) Succ 25 MG TAB.ER.24H PO SCH (09:03)
[2021-09-19] MEDS: *HR* Rivaroxaban 15 MG TABLET PO SCH (09:03)
[2021-09-19] MEDS: amLODIPine 5 MG TABLET PO SCH (09:03)
[2021-09-19 10:53] VITALS: BP 144/93; PULSE 63; TEMP 97.5; O2SAT 93
== END 2021-09-19 16:17 | disposition home health service (06) | DRG 388 ==
LOC: EMEROOARM 01:46 → 3ANU 06:58 → SUATTDRO 06:58 → 3ANU 08:33
PROVIDERS: ADMIT Internal Medicine; ATTEND Internal Medicine